=== PATIENT | female | born 1955 | race Caucasian/White ===

== ENCOUNTER 2018-01-24 10:49 | Inpatient (IN) | payer MEDICARE, MEDICAID ==
[2018-01-24 11:22] LABS: ADD MAN DIFF? NO
[2018-01-24] MEDS: ALBUTEROL SULFATE 2.5 MG/3 ML NEBU. NEB (11:23)
[2018-01-24] MEDS: IPRATRPIUM/ALBUTEROL 0.5/2.5MG 3 ML NEBU. NEB (11:24)
[2018-01-24] MEDS: methylPREDNISolone SOD SUCC PF 125 MG/2 ML VIAL. IV ×2 (11:36→21:07)
[2018-01-24] MEDS: FUROSEMIDE 20 MG/2 ML VIAL. IVP (11:36)
[2018-01-24 11:38] LABS: ANION GAP 11 (6-14); BLOOD UREA NITROGEN 10 mg/dL (7-20); BUN/CREATININE RATIO 10 (6-20); CALCIUM 9.2 mg/dL (8.5-10.1); CARBON DIOXIDE 22 mmol/L (21-32); CHLORIDE 101 mmol/L (98-107); GFR 55.8; GLUCOSE 126 mg/dL (70-99); POTASSIUM 3.9 mmol/L (3.5-5.1); SODIUM 134 mmol/L (136-145)
[2018-01-24] MEDS: dilTIAZem IV PUSH 25 MG/5 ML VIAL IVP (11:38)
[2018-01-24 11:39] LABS: BASO # 0.1 x10^3/uL (0.0-0.2); BASO % 1 % (0-3); EOS # 0.1 x10^3/uL (0.0-0.7); EOS % 1 % (0-3); HEMATOCRIT 38.8 % (36.0-47.0); HEMOGLOBIN 13.2 g/dL (12.0-15.5); LYMPH % 22 % (24-48); MEAN CORPUSCULAR HEMOGLOBIN 36 pg (25-35); MEAN CORPUSCULAR HGB CONC 34 g/dL (31-37); MEAN CORPUSCULAR VOLUME 107 fL (79-100); MONO # 0.6 x10^3/uL (0.0-1.1); MONO % 6 % (0-9); NEUT # 6.7 x10^3uL (1.8-7.7); NEUT % 71 % (31-73); PLATELET COUNT 275 x10^3/uL (140-400); RED BLOOD COUNT 3.64 x10^6/uL (3.50-5.40); RED CELL DISTRIBUTION WIDTH 16.6 % (11.5-14.5); WHITE BLOOD COUNT 9.5 x10^3/uL (4.0-11.0)
[2018-01-24 11:42] LABS: INR 1.4 (0.8-1.1); PROTHROMBIN TIME PATIENT 16.3 SEC (11.7-14.0)
[2018-01-24 11:48] LABS: LACTIC ACID 3.2 mmol/L (0.4-2.0)
[2018-01-24 11:51] LABS: TROPONINI < 0.017 ng/mL (0.000-0.055)
[2018-01-24 11:52] LABS: NT-PRO BNP 1714 pg/mL (0-124)
[2018-01-24 11:55] LABS: ALBUMIN 3.5 g/dL (3.4-5.0); ALBUMIN/GLOBULIN RATIO 0.8 (1.0-1.7); ALK PHOS 108 U/L (46-116); ALT (SGPT) 77 U/L (14-59); AST (SGOT) 104 U/L (15-37); MAGNESIUM 2.2 mg/dL (1.8-2.4); TOTAL BILIRUBIN 1.6 mg/dL (0.2-1.0)
[2018-01-24] MEDS ORDERED: ESMOLOL 2500MG/250ML PREMIX 250 ML IV (12:30)
[2018-01-24] MEDS: IV NORMAL SALINE 500ML BAG 500 ML IV (12:46)
[2018-01-24] MEDS: DIGOXIN IV 500 MCG/2 ML AMPUL. IV (12:47)
[2018-01-24] MEDS: dilTIAZem HCL 30 MG TABLET PO ×2 (12:47→21:08)
[2018-01-24 12:57] LABS: BASE EXCESS ABG -4 mmol/L (-3-3); HCO3 ABG 19 mmol/L (21-28); PCO2 ABG 28 mmHg (35-46); PH ABG 7.45 (7.35-7.45); PO2 ABG 77 mmHg (65-108); SAT O2 ABG 95 % (92-99)
[2018-01-24] MEDS ORDERED: CONTRAST GIVEN MC (13:00)
[2018-01-24 13:01] LABS: FIO2 ABG 28
[2018-01-24] MEDS: AZITHRMYCN 500MG IVPB FOR OMNI 250 ML IV (13:18)
[2018-01-24] MEDS: IOHEXOL 300 MG/ML 100ML VIAL. IV (13:18)
[2018-01-24 14:30] LABS: CHOLESTEROL 160 mg/dL (0-200); HDLC 21 mg/dL (40-60); LDLC 115 mg/dL (0-100); NON-HDL CHOLESTEROL 139 mg/dL (0-129); TRIGLYCERIDES 119 mg/dL (0-150); VLDLC 24 mg/dL (0-40)
[2018-01-24 14:31] LABS: CHOLESTEROL/HDL RATIO 7.6
[2018-01-24 14:39] LABS: THYROID STIM HORMONE (TSH) 4.627 uIU/mL (0.358-3.74)
[2018-01-24 15:02] LABS: LACTIC ACID 1.3 mmol/L (0.4-2.0)
[2018-01-24 15:05] LABS: TROPONINI < 0.017 ng/mL (0.000-0.055)
[2018-01-24] MEDS: ASPIRIN ENTERIC COATED 325 MG TABLET.DR. PO (15:07)
[2018-01-24] MEDS ORDERED: ENOXAPARIN 40 MG/0.4 ML SYRINGE. SQ (17:45)
[2018-01-24] MEDS ORDERED: LEVALBUTEROL 1.25 MG/0.5 ML NEBU. NEB (18:00)
[2018-01-24] MEDS: FUROSEMIDE 40 MG/4 ML VIAL. IVP (18:27)
[2018-01-24 19:03] LABS: TROPONINI < 0.017 ng/mL (0.000-0.055)
[2018-01-24] MEDS: BUDESONIDE 0.5 MG/2 ML NEBU. NEB (20:40)
[2018-01-24] MEDS: LEVALBUTEROL 1.25 MG/0.5 ML NEBU. NEB ×2 (20:42→22:00)
[2018-01-24] MEDS: ATORVASTATIN CALCIUM 20 MG TABLET PO (21:06)
[2018-01-24] MEDS: DOXYCYCLINE HYCLATE 100 MG TABLET PO (21:06)
[2018-01-24] MEDS: GABAPENTIN 300 MG CAPSULE. PO (21:06)
[2018-01-24] MEDS: ZOLPIDEM 5 MG TABLET. PO (21:07)
[2018-01-24] MEDS: NYSTATIN TOPICAL POWDER 15GM BOTTLE. TP (21:20)
[2018-01-24] MEDS: clonazePAM 1 MG TABLET PO (21:20)
[2018-01-25 05:39] LABS: ADD MAN DIFF? NO
[2018-01-25 05:59] LABS: BASO % 0 % (0-3); EOS % 0 % (0-3); HEMATOCRIT 38.1 % (36.0-47.0); HEMOGLOBIN 13.1 g/dL (12.0-15.5); LYMPH # 1.5 x10^3/uL (1.0-4.8); LYMPH % 16 % (24-48); MEAN CORPUSCULAR HEMOGLOBIN 37 pg (25-35); MEAN CORPUSCULAR HGB CONC 34 g/dL (31-37); MEAN CORPUSCULAR VOLUME 108 fL (79-100); MONO # 0.2 x10^3/uL (0.0-1.1); MONO % 2 % (0-9); NEUT # 8.1 x10^3uL (1.8-7.7); NEUT % 82 % (31-73); PLATELET COUNT 265 x10^3/uL (140-400); RED BLOOD COUNT 3.54 x10^6/uL (3.50-5.40); RED CELL DISTRIBUTION WIDTH 16.6 % (11.5-14.5); WHITE BLOOD COUNT 9.9 x10^3/uL (4.0-11.0)
[2018-01-25 06:21] LABS: MRSA BY PCR Negative (Negative)
[2018-01-25] MEDS: methylPREDNISolone SOD SUCC PF 125 MG/2 ML VIAL. IV ×3 (06:24→22:22)
[2018-01-25] MEDS: dilTIAZem HCL 30 MG TABLET PO ×3 (06:24→22:23)
[2018-01-25 07:00] LABS: ALBUMIN 3.2 g/dL (3.4-5.0); ALBUMIN/GLOBULIN RATIO 0.8 (1.0-1.7); ALK PHOS 91 U/L (46-116); ALT (SGPT) 72 U/L (14-59); ANION GAP 13 (6-14); AST (SGOT) 67 U/L (15-37); BLOOD UREA NITROGEN 14 mg/dL (7-20); BUN/CREATININE RATIO 16 (6-20); CALCIUM 8.4 mg/dL (8.5-10.1); CARBON DIOXIDE 25 mmol/L (21-32); CHLORIDE 103 mmol/L (98-107); CREATININE 0.9 mg/dL (0.6-1.0); GLUCOSE 152 mg/dL (70-99); POTASSIUM 3.3 mmol/L (3.5-5.1); SODIUM 141 mmol/L (136-145); TOTAL BILIRUBIN 0.8 mg/dL (0.2-1.0); TOTAL PROTEIN 7.4 g/dL (6.4-8.2)
[2018-01-25] MEDS: BUDESONIDE 0.5 MG/2 ML NEBU. NEB ×2 (08:41→19:11)
[2018-01-25] MEDS: LEVALBUTEROL 1.25 MG/0.5 ML NEBU. NEB ×4 (08:41→18:00)
[2018-01-25] MEDS: clonazePAM 1 MG TABLET PO ×2 (09:00→20:33)
[2018-01-25] MEDS: FUROSEMIDE 100 MG/10 ML VIAL. IVP (09:08)
[2018-01-25] MEDS: NYSTATIN TOPICAL POWDER 15GM BOTTLE. TP ×2 (09:08→20:33)
[2018-01-25] MEDS: SERTRALINE 50 MG TABLET. PO (09:09)
[2018-01-25] MEDS: GABAPENTIN 300 MG CAPSULE. PO ×2 (09:09→20:33)
[2018-01-25] MEDS: DOXYCYCLINE HYCLATE 100 MG TABLET PO ×2 (09:09→20:32)
[2018-01-25] MEDS: ASPIRIN ENTERIC COATED 325 MG TABLET.DR. PO (09:09)
[2018-01-25] MEDS ORDERED: PNEUMOCOCCAL VAX SCREEN BY RX. MC (11:00)
[2018-01-25 14:19] LABS: MAGNESIUM 2.1 mg/dL (1.8-2.4)
[2018-01-25] MEDS: DIGOXIN IV 500 MCG/2 ML AMPUL. IV (15:07)
[2018-01-25] MEDS: PNEUMOC CONJ VACC 23-VALENT 0.5 ML VIAL. VAX IM (15:10)
[2018-01-25] MEDS: POTASSIUM CHLORIDE 20 MEQ TABLET.ER. PO (15:12)
[2018-01-25] MEDS: FUROSEMIDE 40 MG/4 ML VIAL. IVP (16:00)
[2018-01-25] MEDS: ZOLPIDEM 5 MG TABLET. PO (20:32)
[2018-01-25] MEDS: APIXABAN 5 MG TABLET. PO (20:32)
[2018-01-25] MEDS: LACTOBACILLUS RHAMNOSUS GG 1 CAPSULE. PO (20:32)
[2018-01-25] MEDS: ATORVASTATIN CALCIUM 20 MG TABLET PO (20:33)
[2018-01-25] MEDS: ONDANSETRON PF 4 MG/2 ML VIAL. IV (22:22)
[2018-01-26] MEDS: methylPREDNISolone SOD SUCC PF 125 MG/2 ML VIAL. IV ×3 (05:37→20:54)
[2018-01-26] MEDS: dilTIAZem HCL 30 MG TABLET PO ×2 (05:37→14:34)
[2018-01-26 06:06] LABS: ANION GAP 7 (6-14); BLOOD UREA NITROGEN 24 mg/dL (7-20); CALCIUM 9.4 mg/dL (8.5-10.1); CARBON DIOXIDE 30 mmol/L (21-32); CHLORIDE 102 mmol/L (98-107); CREATININE 0.9 mg/dL (0.6-1.0); GLUCOSE 153 mg/dL (70-99); SODIUM 139 mmol/L (136-145)
[2018-01-26 06:14] LABS: BASO % 0 % (0-3); EOS % 0 % (0-3); HEMATOCRIT 38.6 % (36.0-47.0); HEMOGLOBIN 12.6 g/dL (12.0-15.5); LYMPH # 1.1 x10^3/uL (1.0-4.8); LYMPH % 5 % (24-48); MEAN CORPUSCULAR HEMOGLOBIN 35 pg (25-35); MEAN CORPUSCULAR HGB CONC 33 g/dL (31-37); MEAN CORPUSCULAR VOLUME 108 fL (79-100); MONO # 0.7 x10^3/uL (0.0-1.1); MONO % 3 % (0-9); NEUT # 20.9 x10^3uL (1.8-7.7); NEUT % 92 % (31-73); PLATELET COUNT 301 x10^3/uL (140-400); RED BLOOD COUNT 3.56 x10^6/uL (3.50-5.40); RED CELL DISTRIBUTION WIDTH 17.3 % (11.5-14.5); WHITE BLOOD COUNT 22.7 x10^3/uL (4.0-11.0)
[2018-01-26 06:25] LABS: ADD MAN DIFF? YES
[2018-01-26] MEDS: BUDESONIDE 0.5 MG/2 ML NEBU. NEB ×2 (08:15→19:59)
[2018-01-26] MEDS: LEVALBUTEROL 1.25 MG/0.5 ML NEBU. NEB ×5 (08:16→22:00)
[2018-01-26] MEDS: LACTOBACILLUS RHAMNOSUS GG 1 CAPSULE. PO ×2 (09:11→20:53)
[2018-01-26] MEDS: FUROSEMIDE 40 MG/4 ML VIAL. IVP ×2 (09:11→14:35)
[2018-01-26] MEDS: GABAPENTIN 300 MG CAPSULE. PO ×2 (09:11→20:54)
[2018-01-26] MEDS: DOXYCYCLINE HYCLATE 100 MG TABLET PO ×2 (09:11→20:53)
[2018-01-26] MEDS: APIXABAN 5 MG TABLET. PO ×2 (09:11→20:53)
[2018-01-26] MEDS: clonazePAM 1 MG TABLET PO ×2 (09:11→20:54)
[2018-01-26] MEDS: NYSTATIN TOPICAL POWDER 15GM BOTTLE. TP ×2 (09:12→20:54)
[2018-01-26] MEDS: SERTRALINE 50 MG TABLET. PO (09:12)
[2018-01-26] MEDS: POTASSIUM CHLORIDE 20 MEQ TABLET.ER. PO (09:12)
[2018-01-26 09:37] LABS: % BANDS 1 % (0-9); % LYMPHS 5 % (24-48); % MONOS 2 % (0-10); % SEGS 92 % (35-66)
[2018-01-26 09:41] LABS: PLT ESTIMATE ADEQUATE (ADEQUATE)
[2018-01-26 09:46] LABS: ANISOCYTOSIS SLIGHT
[2018-01-26] MEDS: DIGOXIN IV 500 MCG/2 ML AMPUL. IV (17:35)
[2018-01-26 20:41] LABS: POC GLUCOSE 202 mg/dL (70-99)
[2018-01-26] MEDS: ATORVASTATIN CALCIUM 20 MG TABLET PO (20:53)
[2018-01-26] MEDS: ZOLPIDEM 5 MG TABLET. PO (20:54)
[2018-01-27] MEDS: methylPREDNISolone SOD SUCC PF 125 MG/2 ML VIAL. IV ×3 (06:26→21:38)
[2018-01-27 08:10] LABS: POC GLUCOSE 105 mg/dL (70-99)
[2018-01-27] MEDS: LEVALBUTEROL 1.25 MG/0.5 ML NEBU. NEB ×4 (08:11→18:00)
[2018-01-27] MEDS: BUDESONIDE 0.5 MG/2 ML NEBU. NEB ×2 (08:11→20:31)
[2018-01-27] MEDS: POTASSIUM CHLORIDE 20 MEQ TABLET.ER. PO (08:24)
[2018-01-27] MEDS: FUROSEMIDE 40 MG/4 ML VIAL. IVP (08:24)
[2018-01-27] MEDS: GABAPENTIN 300 MG CAPSULE. PO ×2 (08:25→20:39)
[2018-01-27] MEDS: LACTOBACILLUS RHAMNOSUS GG 1 CAPSULE. PO ×2 (08:25→20:39)
[2018-01-27] MEDS: SERTRALINE 50 MG TABLET. PO (08:25)
[2018-01-27] MEDS: clonazePAM 1 MG TABLET PO ×2 (08:25→20:39)
[2018-01-27] MEDS: APIXABAN 5 MG TABLET. PO ×2 (08:25→20:39)
[2018-01-27] MEDS: DOXYCYCLINE HYCLATE 100 MG TABLET PO ×2 (08:25→20:39)
[2018-01-27] MEDS: NYSTATIN TOPICAL POWDER 15GM BOTTLE. TP ×2 (08:25→20:39)
[2018-01-27] MEDS: ANTI-COAG MONITOR BY PHARMACY. MC (08:53)
[2018-01-27 11:28] LABS: ADD MAN DIFF? NO
[2018-01-27 11:35] LABS: BASO % 0 % (0-3); EOS % 0 % (0-3); HEMATOCRIT 39.2 % (36.0-47.0); LYMPH # 1.1 x10^3/uL (1.0-4.8); LYMPH % 6 % (24-48); MEAN CORPUSCULAR HEMOGLOBIN 36 pg (25-35); MEAN CORPUSCULAR HGB CONC 33 g/dL (31-37); MEAN CORPUSCULAR VOLUME 108 fL (79-100); MONO # 0.6 x10^3/uL (0.0-1.1); MONO % 3 % (0-9); NEUT # 16.2 x10^3uL (1.8-7.7); NEUT % 91 % (31-73); PLATELET COUNT 286 x10^3/uL (140-400); RED BLOOD COUNT 3.63 x10^6/uL (3.50-5.40); RED CELL DISTRIBUTION WIDTH 17.2 % (11.5-14.5); WHITE BLOOD COUNT 17.9 x10^3/uL (4.0-11.0)
[2018-01-27 11:40] LABS: ANION GAP 7 (6-14); BLOOD UREA NITROGEN 30 mg/dL (7-20); CALCIUM 8.5 mg/dL (8.5-10.1); CARBON DIOXIDE 33 mmol/L (21-32); CHLORIDE 102 mmol/L (98-107); GFR 55.8; GLUCOSE 144 mg/dL (70-99); POTASSIUM 3.7 mmol/L (3.5-5.1); SODIUM 142 mmol/L (136-145)
[2018-01-27] MEDS: POLYETHYLENE GLYCOL 3350 17 GM PACKET. PO (13:39)
[2018-01-27] MEDS: ZOLPIDEM 5 MG TABLET. PO (20:39)
[2018-01-27] MEDS: ATORVASTATIN CALCIUM 20 MG TABLET PO (20:39)
[2018-01-28 04:26] LABS: ADD MAN DIFF? NO
[2018-01-28 04:36] LABS: BASO % 0 % (0-3); EOS % 0 % (0-3); HEMATOCRIT 38.6 % (36.0-47.0); HEMOGLOBIN 12.8 g/dL (12.0-15.5); LYMPH # 1.1 x10^3/uL (1.0-4.8); LYMPH % 8 % (24-48); MEAN CORPUSCULAR HEMOGLOBIN 36 pg (25-35); MEAN CORPUSCULAR HGB CONC 33 g/dL (31-37); MEAN CORPUSCULAR VOLUME 108 fL (79-100); MONO # 0.3 x10^3/uL (0.0-1.1); MONO % 3 % (0-9); NEUT # 11.9 x10^3uL (1.8-7.7); NEUT % 89 % (31-73); PLATELET COUNT 263 x10^3/uL (140-400); RED BLOOD COUNT 3.56 x10^6/uL (3.50-5.40); RED CELL DISTRIBUTION WIDTH 16.9 % (11.5-14.5); WHITE BLOOD COUNT 13.3 x10^3/uL (4.0-11.0)
[2018-01-28 04:51] LABS: ANION GAP 2 (6-14); BLOOD UREA NITROGEN 32 mg/dL (7-20); CALCIUM 8.9 mg/dL (8.5-10.1); CARBON DIOXIDE 34 mmol/L (21-32); CHLORIDE 103 mmol/L (98-107); CREATININE 0.9 mg/dL (0.6-1.0); GLUCOSE 125 mg/dL (70-99); POTASSIUM 3.9 mmol/L (3.5-5.1); SODIUM 139 mmol/L (136-145)
[2018-01-28] MEDS: LEVALBUTEROL 1.25 MG/0.5 ML NEBU. NEB ×6 (06:00→19:33)
[2018-01-28] MEDS: methylPREDNISolone SOD SUCC PF 125 MG/2 ML VIAL. IV (06:17)
[2018-01-28] MEDS: BUDESONIDE 0.5 MG/2 ML NEBU. NEB ×2 (08:10→19:33)
[2018-01-28] MEDS: ANTI-COAG MONITOR BY PHARMACY. MC (08:12)
[2018-01-28] MEDS: GABAPENTIN 300 MG CAPSULE. PO ×2 (08:14→20:34)
[2018-01-28] MEDS: DOXYCYCLINE HYCLATE 100 MG TABLET PO ×2 (08:14→20:34)
[2018-01-28] MEDS: SERTRALINE 50 MG TABLET. PO (08:14)
[2018-01-28] MEDS: APIXABAN 5 MG TABLET. PO ×2 (08:15→20:35)
[2018-01-28] MEDS: LACTOBACILLUS RHAMNOSUS GG 1 CAPSULE. PO ×2 (08:15→20:34)
[2018-01-28] MEDS: POTASSIUM CHLORIDE 20 MEQ TABLET.ER. PO (08:15)
[2018-01-28] MEDS: clonazePAM 1 MG TABLET PO ×2 (08:15→20:34)
[2018-01-28] MEDS: NYSTATIN TOPICAL POWDER 15GM BOTTLE. TP ×2 (08:15→20:35)
[2018-01-28] MEDS: FUROSEMIDE 40 MG/4 ML VIAL. IVP (08:20)
[2018-01-28] MEDS ORDERED: methylPREDNISolone SOD SUCC PF 40 MG/ML VIAL. IV (14:00)
[2018-01-28] MEDS: ONDANSETRON PF 4 MG/2 ML VIAL. IV (17:50)
[2018-01-28] MEDS: PANTOPRAZOLE 40 MG TABLET.DR. PO (20:34)
[2018-01-28] MEDS: ZOLPIDEM 5 MG TABLET. PO (20:34)
[2018-01-28] MEDS: ATORVASTATIN CALCIUM 20 MG TABLET PO (20:34)
[2018-01-29 05:59] LABS: ADD MAN DIFF? NO
[2018-01-29 06:19] LABS: BASO % 0 % (0-3); EOS % 0 % (0-3); HEMATOCRIT 40.8 % (36.0-47.0); HEMOGLOBIN 13.3 g/dL (12.0-15.5); LYMPH # 1.1 x10^3/uL (1.0-4.8); LYMPH % 9 % (24-48); MEAN CORPUSCULAR HEMOGLOBIN 35 pg (25-35); MEAN CORPUSCULAR HGB CONC 33 g/dL (31-37); MEAN CORPUSCULAR VOLUME 108 fL (79-100); MONO # 0.6 x10^3/uL (0.0-1.1); MONO % 5 % (0-9); NEUT # 9.7 x10^3uL (1.8-7.7); NEUT % 85 % (31-73); PLATELET COUNT 254 x10^3/uL (140-400); RED CELL DISTRIBUTION WIDTH 17.1 % (11.5-14.5); WHITE BLOOD COUNT 11.4 x10^3/uL (4.0-11.0)
[2018-01-29 06:29] LABS: ANION GAP 3 (6-14); BLOOD UREA NITROGEN 38 mg/dL (7-20); CALCIUM 9.1 mg/dL (8.5-10.1); CARBON DIOXIDE 34 mmol/L (21-32); CHLORIDE 104 mmol/L (98-107); CREATININE 0.9 mg/dL (0.6-1.0); GLUCOSE 112 mg/dL (70-99); SODIUM 141 mmol/L (136-145)
[2018-01-29] MEDS: LEVALBUTEROL 1.25 MG/0.5 ML NEBU. NEB ×3 (07:35→12:03)
[2018-01-29] MEDS: BUDESONIDE 0.5 MG/2 ML NEBU. NEB (07:35)
[2018-01-29] MEDS: APIXABAN 5 MG TABLET. PO (08:15)
[2018-01-29] MEDS: SERTRALINE 50 MG TABLET. PO (08:15)
[2018-01-29] MEDS: DOXYCYCLINE HYCLATE 100 MG TABLET PO (08:15)
[2018-01-29] MEDS: GABAPENTIN 300 MG CAPSULE. PO (08:16)
[2018-01-29] MEDS: POTASSIUM CHLORIDE 20 MEQ TABLET.ER. PO (08:16)
[2018-01-29] MEDS: clonazePAM 1 MG TABLET PO (08:16)
[2018-01-29] MEDS: FUROSEMIDE 40 MG TABLET. PO (08:16)
[2018-01-29] MEDS: LACTOBACILLUS RHAMNOSUS GG 1 CAPSULE. PO (08:16)
[2018-01-29] MEDS: predniSONE 20 MG TABLET PO (08:16)
[2018-01-29] MEDS: NYSTATIN TOPICAL POWDER 15GM BOTTLE. TP (08:19)
== END 2018-01-29 15:16 | disposition home or self-care (01) | DRG 291 ==
LOC: 2 NORTH 01-26 04:00 → ER 10:49 → ED HOLD 12:27 → 1 WEST ICU 14:38
DX: I11.0 Hypertensive heart disease with heart failure (principal); J96.01 Acute respiratory failure with hypoxia; D68.9 Coagulation defect, unspecified; I27.20 Pulmonary hypertension, unspecified; E66.01 Morbid (severe) obesity due to excess calories; J44.1 Chronic obstructive pulmonary disease with (acute) exacerbation; Z68.43 Body mass index [BMI] 50.0-59.9, adult; I50.31 Acute diastolic (congestive) heart failure; I48.91 Unspecified atrial fibrillation; W19.XXXA Unspecified fall, initial encounter; D72.829 Elevated white blood cell count, unspecified; D75.89 Other specified diseases of blood and blood-forming organs; E03.9 Hypothyroidism, unspecified; F12.10 Cannabis abuse, uncomplicated; F17.210 Nicotine dependence, cigarettes, uncomplicated; F41.9 Anxiety disorder, unspecified; F32.9 Major depressive disorder, single episode, unspecified; G47.33 Obstructive sleep apnea (adult) (pediatric); I35.1 Nonrheumatic aortic (valve) insufficiency; S00.10XA Contusion of unspecified eyelid and periocular area, initial encounter; T38.0X5A Adverse effect of glucocorticoids and synthetic analogues, initial encounter; Z82.49 Family history of ischemic heart disease and other diseases of the circulatory system; Z98.51 Tubal ligation status; Y93.89 Activity, other specified; Y92.89 Other specified places as the place of occurrence of the external cause; Y99.8 Other external cause status
CPT/HCPCS: 36415; 36600; 71045; 71275; 80048; 80053; 80061; 82805; 82962; 83605; 83735; 83880; 84443; 84484; 85007; 85025; 85610; 87040; 87641; 90732; 93005; 93306; 94640; 94760; 96361; 96365; 96366; 96375; 97116-GP; 97162-GP; 97166-GO; 97530-GO; 97530-GP; 97535-GO; 99291; 99291-25; J0456; J0690; J1160; J1650; J1940; J2405; J2930; J3490; J7040; J7512; J7613; J7620; J7626; Q9967

== ENCOUNTER 2018-03-02 14:40 | Inpatient (IN) | payer MEDICARE ==
[2018-03-02 15:01] LABS: ADD MAN DIFF? NO
[2018-03-02 15:06] LABS: BASO # 0.1 x10^3/uL (0.0-0.2); BASO % 1 % (0-3); EOS % 0 % (0-3); HEMATOCRIT 40.6 % (36.0-47.0); HEMOGLOBIN 13.6 g/dL (12.0-15.5); LYMPH # 4.6 x10^3/uL (1.0-4.8); LYMPH % 41 % (24-48); MEAN CORPUSCULAR HEMOGLOBIN 35 pg (25-35); MEAN CORPUSCULAR HGB CONC 34 g/dL (31-37); MEAN CORPUSCULAR VOLUME 104 fL (79-100); MONO # 0.8 x10^3/uL (0.0-1.1); MONO % 7 % (0-9); NEUT # 5.8 x10^3uL (1.8-7.7); NEUT % 51 % (31-73); PLATELET COUNT 233 x10^3/uL (140-400); RED BLOOD COUNT 3.91 x10^6/uL (3.50-5.40); RED CELL DISTRIBUTION WIDTH 16.3 % (11.5-14.5); WHITE BLOOD COUNT 11.4 x10^3/uL (4.0-11.0)
[2018-03-02] MEDS: IV NORMAL SALINE 1000ML BAG 1,000 ML IV (15:07)
[2018-03-02] MEDS: METOPROLOL TARTRATE 5 MG/5 ML VIAL. IVP (15:07)
[2018-03-02 15:25] LABS: ANION GAP 12 (6-14); BLOOD UREA NITROGEN 9 mg/dL (7-20); BUN/CREATININE RATIO 13 (6-20); CALCIUM 9.4 mg/dL (8.5-10.1); CARBON DIOXIDE 24 mmol/L (21-32); CHLORIDE 102 mmol/L (98-107); CREATININE 0.7 mg/dL (0.6-1.0); GFR 84.2; GLUCOSE 96 mg/dL (70-99); POTASSIUM 4.2 mmol/L (3.5-5.1); SODIUM 138 mmol/L (136-145)
[2018-03-02 15:29] LABS: INR 1.4 (0.8-1.1); PROTHROMBIN TIME PATIENT 16.1 SEC (11.7-14.0)
[2018-03-02 15:32] LABS: ALBUMIN 3.4 g/dL (3.4-5.0); ALK PHOS 91 U/L (46-116); ALT (SGPT) 40 U/L (14-59); AST (SGOT) 35 U/L (15-37); MAGNESIUM 2.2 mg/dL (1.8-2.4); TOTAL BILIRUBIN 1.1 mg/dL (0.2-1.0); TOTAL PROTEIN 6.8 g/dL (6.4-8.2)
[2018-03-02 15:35] LABS: TROPONINI < 0.017 ng/mL (0.000-0.055)
[2018-03-02 15:38] LABS: THYROID STIM HORMONE (TSH) 3.801 uIU/mL (0.358-3.74)
[2018-03-02 15:38] LABS: FREE T4 0.86 ng/dL (0.76-1.46)
[2018-03-02 15:40] LABS: NT-PRO BNP 2044 pg/mL (0-124)
[2018-03-02 15:40] LABS: CKMB MASS < 0.5 ng/mL (0.0-3.6); CREATINE KINASE 34 U/L (26-192)
[2018-03-02] MEDS: ESMOLOL 2500MG/250ML PREMIX 250 ML IV ×2 (15:51→19:05)
[2018-03-02] MEDS: DIGOXIN IV 500 MCG/2 ML AMPUL. IV (17:41)
[2018-03-02] MEDS: GABAPENTIN 300 MG CAPSULE. PO (20:02)
[2018-03-02] MEDS: clonazePAM 1 MG TABLET PO (20:02)
[2018-03-02] MEDS: APIXABAN 5 MG TABLET. PO (20:02)
[2018-03-02] MEDS: NYSTATIN TOPICAL POWDER 15GM BOTTLE. TP (20:02)
[2018-03-02] MEDS: ONDANSETRON PF 4 MG/2 ML VIAL. IV (21:39)
[2018-03-02] MEDS: ZOLPIDEM 5 MG TABLET. PO (21:42)
[2018-03-03] MEDS: ESMOLOL 2500MG/250ML PREMIX 250 ML IV ×2 (01:07→09:34)
[2018-03-03] MEDS: SERTRALINE 50 MG TABLET. PO (09:51)
[2018-03-03] MEDS: clonazePAM 1 MG TABLET PO ×2 (09:52→20:30)
[2018-03-03] MEDS: GABAPENTIN 300 MG CAPSULE. PO ×2 (09:52→20:30)
[2018-03-03] MEDS: APIXABAN 5 MG TABLET. PO ×2 (09:52→20:30)
[2018-03-03] MEDS: DIGOXIN IV 500 MCG/2 ML AMPUL. IV ×2 (12:15→12:59)
[2018-03-03] MEDS: ANTI-COAG MONITOR BY PHARMACY. MC (13:35)
[2018-03-03] MEDS ORDERED: CALCIUM CARBONATE 500 MG TAB.CHEW PO (13:45)
[2018-03-03] MEDS: NYSTATIN TOPICAL POWDER 15GM BOTTLE. TP ×2 (13:58→20:32)
[2018-03-03] MEDS: METOPROLOL TART IMMED RELEASE 25 MG TABLET. PO ×2 (13:59→20:31)
[2018-03-03] MEDS: SIMETHICONE 80 MG TAB.CHEW PO (13:59)
[2018-03-03] MEDS: MAGNESIUM HYDROXIDE 2,400 MG/30 ML ORAL.SUSP. PO (18:15)
[2018-03-03 19:17] LABS: MRSA BY PCR Negative (Negative)
[2018-03-03] MEDS: ZOLPIDEM 5 MG TABLET. PO (20:30)
[2018-03-03] MEDS: ATORVASTATIN CALCIUM 10 MG TABLET. PO (20:30)
[2018-03-04] MEDS: METOPROLOL TART IMMED RELEASE 25 MG TABLET. PO ×2 (09:00→20:41)
[2018-03-04] MEDS: SERTRALINE 50 MG TABLET. PO (09:31)
[2018-03-04] MEDS: clonazePAM 1 MG TABLET PO ×2 (09:32→20:41)
[2018-03-04] MEDS: GABAPENTIN 300 MG CAPSULE. PO ×2 (09:32→20:40)
[2018-03-04] MEDS: APIXABAN 5 MG TABLET. PO ×2 (09:32→20:41)
[2018-03-04] MEDS: NYSTATIN TOPICAL POWDER 15GM BOTTLE. TP ×2 (09:33→20:41)
[2018-03-04] MEDS: ATORVASTATIN CALCIUM 10 MG TABLET. PO (20:40)
[2018-03-04] MEDS: ZOLPIDEM 5 MG TABLET. PO (20:40)
[2018-03-04] MEDS: SIMETHICONE 80 MG TAB.CHEW PO (20:40)
[2018-03-05] MEDS: clonazePAM 1 MG TABLET PO (08:39)
[2018-03-05] MEDS: SERTRALINE 50 MG TABLET. PO (08:39)
[2018-03-05] MEDS: APIXABAN 5 MG TABLET. PO (08:39)
[2018-03-05] MEDS: GABAPENTIN 300 MG CAPSULE. PO (08:39)
[2018-03-05] MEDS: METOPROLOL TART IMMED RELEASE 25 MG TABLET. PO (08:40)
[2018-03-05] MEDS: NYSTATIN TOPICAL POWDER 15GM BOTTLE. TP (08:41)
[2018-03-06] MEDS ORDERED: IV RINGERS,LACTATED 1000ML 1,000 ML IV (07:00)
[2018-03-06] MEDS ORDERED: fentaNYL PF VIAL 100 MCG/2 ML VIAL IV ×2 (07:00)
[2018-03-06] MEDS ORDERED: MORPHINE SULFATE 4 MG/ML DISP.SYRIN. IV (07:00)
[2018-03-06] MEDS ORDERED: LIDOCAINE 1% PF 2 ML VIAL. ID (07:00)
[2018-03-06] MEDS ORDERED: PROCHLORPERAZINE 10 MG/2 ML VIAL. IV (07:00)
[2018-03-06] MEDS ORDERED: ONDANSETRON PF 4 MG/2 ML VIAL. IV (07:00)
== END 2018-03-05 15:00 | disposition home or self-care (01) | DRG 308 ==
LOC: 2 NORTH 03-04 15:00 → ER 14:40 → 1 WEST ICU 15:45
DX: I48.91 Unspecified atrial fibrillation (principal); I50.33 Acute on chronic diastolic (congestive) heart failure; E66.01 Morbid (severe) obesity due to excess calories; J44.1 Chronic obstructive pulmonary disease with (acute) exacerbation; I27.20 Pulmonary hypertension, unspecified; Z68.43 Body mass index [BMI] 50.0-59.9, adult; I11.0 Hypertensive heart disease with heart failure; F41.9 Anxiety disorder, unspecified; F32.9 Major depressive disorder, single episode, unspecified; F17.210 Nicotine dependence, cigarettes, uncomplicated; M19.90 Unspecified osteoarthritis, unspecified site; M79.7 Fibromyalgia; D75.89 Other specified diseases of blood and blood-forming organs; F12.90 Cannabis use, unspecified, uncomplicated; E03.9 Hypothyroidism, unspecified; E78.5 Hyperlipidemia, unspecified; G47.33 Obstructive sleep apnea (adult) (pediatric); Z82.49 Family history of ischemic heart disease and other diseases of the circulatory system; Z98.51 Tubal ligation status
CPT/HCPCS: 36415; 71045; 80053; 82553; 83735; 83880; 84439; 84443; 84484; 85025; 85610; 87641; 93005; 96361; 96365; 96375; 99291; 99291-25; 99406; J1160; J2405; J3490; J7030

== ENCOUNTER 2020-05-08 09:21 | Inpatient (IN) | payer MEDICAID, MEDICARE ==
[2020-05-08] VITALS (8 sets, daily range): BP systolic 109–161; BP diastolic 56–104
[~2020-05-08] VITALS: Ht 142.2 cm; Wt 89.2 kg
[~2020-05-08 09:21] MED LIST: APIX5TAB PO; ATOR10TA60 PO; CLON2TAB9 PO; CLONAZEPAM1 MG PO; DILT240C33 PO; GABA300C18 PO; METH4TAB2 PO; METO25TA4 PO; SERT100T PO; ZOLP5TAB PO
[2020-05-08] MEDS ORDERED: IV NORMAL SALINE 1000ML BAG 1,000 ML IV ONE (10:00)
[2020-05-08] MEDS ORDERED: ONDANSETRON ODT 4 MG TAB.RAPDIS. ONE (10:11)
[2020-05-08] MEDS ORDERED: ONDANSETRON ODT 4 MG TAB.RAPDIS. PO ONE (10:45)
[2020-05-08 11:34] LABS: CALCIUM 9.1 mg/dL (8.5-10.1); CREATININE 0.6 mg/dL (0.6-1.0)
[2020-05-08 11:39] LABS: BASO % 0 % (0-3); EOS # 0.1 x10^3/uL (0.0-0.7); EOS % 1 % (0-3); HEMATOCRIT 45.4 % (36.0-47.0); HEMOGLOBIN 15.1 g/dL (12.0-15.5); LYMPH # 2.2 x10^3/uL (1.0-4.8); LYMPH % 28 % (24-48); MEAN CORPUSCULAR HEMOGLOBIN 34 pg (25-35); MEAN CORPUSCULAR HGB CONC 33 g/dL (31-37); MEAN CORPUSCULAR VOLUME 102 fL (79-100); MONO # 0.8 x10^3/uL (0.0-1.1); MONO % 10 % (0-9); NEUT # 4.8 x10^3/uL (1.8-7.7); NEUT % 62 % (31-73); PLATELET COUNT 227 x10^3/uL (140-400); RED BLOOD COUNT 4.44 x10^6/uL (3.50-5.40); RED CELL DISTRIBUTION WIDTH 14.9 % (11.5-14.5); WHITE BLOOD COUNT 7.8 x10^3/uL (4.0-11.0)
[2020-05-08 11:40] LABS: ALBUMIN 2.9 g/dL (3.4-5.0); ALBUMIN/GLOBULIN RATIO 0.7 (1.0-1.7); TOTAL BILIRUBIN 0.7 mg/dL (0.2-1.0)
[2020-05-08] MEDS ORDERED: IOHEXOL 300 MG/ML 100ML VIAL. IV ONE (11:45)
[2020-05-08] MEDS ORDERED: CONTRAST GIVEN. MC PRN (11:45)
[2020-05-08] MEDS ORDERED: IOHEXOL 240 MG/ML 50ML VIAL. PO ONE (11:45)
[2020-05-08 12:18] LABS: BILIRUBIN,URINE NEGATIVE (NEG); CLARITY,URINE CLEAR; COLOR,URINE YELLOW; NITRITE,URINE POSITIVE (NEG); PH,URINE 7.5 (<5.0-8.0); PROTEIN,URINE NEGATIVE (NEG-TRACE)
[2020-05-08] MEDS ORDERED: dilTIAZem IV PUSH 25 MG/5 ML VIAL ONE (12:21)
--- NOTE | 2020-05-08 12:24 | PHYS DOC ---
Past Medical History Past Medical History: A-Fib, COPD, High Cholesterol, Hypertension Additional Past Medical Histor: CHRONIC LEG PAIN Past Surgical History: Tubal ligation Smoking Status: Current Every Day Smoker Alcohol Use: Occasionally Drug Use: Marijuana General Adult EDM: Chief Complaint: NAUSEA/VOMITING/DIARRHA HPI: HPI: Patient is a 64 year old female who presents with abdominal pain and vomiting. Patient states that for the last 3 weeks she has not had an appetite and has barely been eating. She states when she does eat she often throws up. She has intermittent diarrhea as well. She denies any fevers with this. She states she has been taking her medications as prescribed other than her psychiatric medicines. She states she has had a great increase in stress in the last 3 weeks as she was evicted from her home. She states pain is achy and intermit tent. Review of Systems: Review of Systems: General: Denies fever, chills, sweats, fatigue Eyes: Denies drainage, blurred vision, eye redness HENT: Denies rhinorrhea, sore throat, earache Respiratory: Denies cough, shortness of breath, wheezing Cardiac: Denies edema, palpitations, chest pain GI: Reports abdominal pain, Nausea, vomiting MSK: Denies back pain, neck pain Skin: Denies rash, jaundice Neuro: Denies headache, dizziness Psychiatric: Denies SI/HI Heart Score: Risk Factors: Risk Factors: DM, Current or recent (<one month) smoker, HTN, HLP, family history of CAD, obesity. Risk Scores: Score 0 - 3: 2.5% MACE over next 6 weeks - Discharge Home Score 4 - 6: 20.3% MACE over next 6 weeks - Admit for Clinical Observation Score 7 - 10: 72.7% MACE over next 6 weeks - Early Invasive Strategies Current Medications: Current Medications Medications (Trade) Dose Ordered Sig/Steffen Start Time Stop Time Status Last Admin Dose Admin Diltiazem HCl (Cardizem 24hr Cd) 120 mg 1X ONCE 05/08/20 12:00 05/08/20 12:01 DC 05/08/20 11:57 120 MG Diltiazem HCl (Cardizem Iv Push) 20 mg 1X ONCE 05/08/20 12:30 05/08/20 12:31 UNV Info (CONTRAST GIVEN -- Rx MONITORING) 1 each PRN DAILY PRN 05/08/20 11:45 05/10/20 11:44 Iohexol (Omnipaque 240 Mg/ml) 30 ml 1X ONCE 05/08/20 11:45 05/08/20 11:46 DC 05/08/20 11:45 30 ML Iohexol (Omnipaque 300 Mg/ml) 75 ml 1X ONCE 05/08/20 11:45 05/08/20 11:46 DC 05/08/20 11:45 75 ML Ondansetron HCl (Zofran Odt) 4 mg 1X ONCE 05/08/20 10:45 05/08/20 10:46 DC 05/08/20 10:17 4 MG Sodium Chloride 1,000 ml @ 1,000 mls/hr 1X ONCE 05/08/20 10:00 05/08/20 10:59 DC 05/08/20 10:17 1,000 MLS/HR Allergies: Allergies: Allergies Coded Allergies Type Severity Reaction Last Updated Verified No Known Drug Allergies 01/24/18 No Physical Exam: PE: General: Awake, alert, NAD. Well Nourished, well hydrated. Cooperative HEENT: Atraumatic, EOMI, PERRL, airway patent, moist oral mucosa Neck: Supple, trachea midline Respiratory: CTA bilaterally, normal effort, no wheezing/crackles CV: Irregularly irregular tachycardia, no murmur, cap refill <2 GI: Soft, nondistended, nontender, no masses MSK: No obvious deformities Skin: Warm, dry, intact Neuro: A&O x3, speech NL, sensory and motor grossly intact, no focal deficits Psych: Normal affect, normal mood, not suicidal or homicidal Current Patient Data: Labs: Laboratory Tests Test 05/08/20 11:20 White Blood Count 7.8 x10^3/uL (4.0-11.0) Red Blood Count 4.44 x10^6/uL (3.50-5.40) Hemoglobin 15.1 g/dL (12.0-15.5) Hematocrit 45.4 % (36.0-47.0) Mean Corpuscular Volume 102 fL (79-100) H Mean Corpuscular Hemoglobin 34 pg (25-35) Mean Corpuscular Hemoglobin Concent 33 g/dL (31-37) Red Cell Distribution Width 14.9 % (11.5-14.5) H Platelet Count 227 x10^3/uL (140-400) Neutrophils (%) (Auto) 62 % (31-73) Lymphocytes (%) (Auto) 28 % (24-48) Monocytes (%) (Auto) 10 % (0-9) H Eosinophils (%) (Auto) 1 % (0-3) Basophils (%) (Auto) 0 % (0-3) Neutrophils # (Auto) 4.8 x10^3/uL (1.8-7.7) Lymphocytes # (Auto) 2.2 x10^3/uL (1.0-4.8) Monocytes # (Auto) 0.8 x10^3/uL (0.0-1.1) Eosinophils # (Auto) 0.1 x10^3/uL (0.0-0.7) Basophils # (Auto) 0.0 x10^3/uL (0.0-0.2) Sodium Level 140 mmol/L (136-145) Potassium Level 4.0 mmol/L (3.5-5.1) Chloride Level 105 mmol/L (98-107) Carbon Dioxide Level 28 mmol/L (21-32) Anion Gap 7 (6-14) Blood Urea Nitrogen 5 mg/dL (7-20) L Creatinine 0.6 mg/dL (0.6-1.0) Estimated GFR (Cockcroft-Gault) 100.0 BUN/Creatinine Ratio 8 (6-20) Glucose Level 112 mg/dL (70-99) H Calcium Level 9.1 mg/dL (8.5-10.1) Total Bilirubin 0.7 mg/dL (0.2-1.0) Aspartate Amino Transferase (AST) 53 U/L (15-37) H Alanine Aminotransferase (ALT) 36 U/L (14-59) Alkaline Phosphatase 154 U/L (46-116) H Total Protein 7.0 g/dL (6.4-8.2) Albumin 2.9 g/dL (3.4-5.0) L Albumin/Globulin Ratio 0.7 (1.0-1.7) L Lipase 74 U/L (73-393) Laboratory Tests 05/08/20 11:20 Laboratory Tests 05/08/20 11:20 Vital Signs: Vital Signs Date Time Temp Pulse Resp B/P (MAP) Pulse Ox O2 Delivery O2 Flow Rate FiO2 05/08/20 11:57 154 133/98 05/08/20 11:14 97 Room Air 05/08/20 09:33 98.1 19 98.1 EKG: EKG: [] Radiology/Procedures: Radiology/Procedures: [] Course & Med Decision Making: Course & Med Decision Making Pertinent Labs and Imaging studies reviewed. (See chart for details) Patient is 64-year-old female who presents to the emergency room complaining of abdominal pain and nausea. Patient does not have any tenderness on exam but states that her pain comes and goes. She is in atrial fibrillation with RVR. She does have a history of A. fib but she states she has been taking her medications. She denies any chest pain, shortness of breath, palpitations. Given her age, vital signs, history and abdominal work-up will be ordered including CBC, CMP, lipase, UA, CT abdomen pelvis. EKG shows atrial fibrillation with RVR. Patient was given IV diltiazem after her home dose of oral diltiazem did not help. Patient was started on a diltiazem drip. CT shows cystitis. Patient will be treated with antibiotics and will be admitted for atrial fibrillation with RVR. Work up was rviewed and was remarkable for UTI and atrial fibrillation. At this time, patient would benefit from further work up and management. Patient is not stable for discharge at this time. Results, vitals, interventions, and plan was discussed with the patient. Patient was given opportunity to ask any questions and are in agreement with plan for admis shanda. Patient was discussed with admitting physician and bridge admission orders were placed. Further care will be managed by inpatient team. Danaeon Disclaimer: [place] Disclaimer: This electronic medical record was generated, in whole or in part, using a voice recognition dictation system. Critical Care Time Critical Care: Authorized and Performed by: Alta Orellana MD Total critical care time: approximately 35 minutes Due to a high probability of clinically significant, life threatening deterioration, the patient required my highest level of preparedness to intervene emergently and I personally spent this critical care time directly and personally managing the patient. This critical care time included obtaining a history; examining the patient; pulse oximetry; ventilator management if necessary; ordering and review of studies; arranging urgent treatment with development of a management plan; evaluation of patient's response to treatment; frequent reassessment; discussion with patient/family; and, discussions with other providers. This critical care time was performed to assess and manage the high probability of imminent, life-threatening deterioration that could result in multi-organ failure. It was exclusive of separately billable procedures and treating other patients and teaching time. Please see MDM section and the rest of the note for further information on patient assessment and treatment. Departure Departure Impression: Primary Impression: Atrial fibrillation with RVR Disposition: ADMITTED INPATIENT Condition: STABLE Referrals: NO PCP (PCP) Justicifation of Admission Dx: Justifications for Admission: Justification of Admission Dx: Yes ALTA ORELLANA MD May 08, 2020 12:24
[2020-05-08 12:32] LABS: BACTERIA,URINE MANY /HPF (0-FEW); HYALINE CASTS, URINE FEW /HPF; SQUAMOUS EPITHELIAL CELL,UR MOD /LPF
--- NOTE | 2020-05-08 12:34 | RAD ---
CT ABD PELV W/ORAL IV CONTRAST Indication: Abdominal pain, nausea and vomiting, diarrhea Technique: Postcontrast CT imaging was performed of the abdomen pelvis, multiplanar reconstruction images submitted. Oral contrast was also given. One or more of the following individualized dose reduction techniques were utilized for this examination: 1. Automated exposure control 2. Adjustment of the mA and/or kV according to patient size 3. Use of iterative reconstruction technique. Comparison: September 21, 2004 CT exam Findings: There is motion degradation. There is calcified granuloma left lower lobe at the base. There is a new hypodense lesion of left lobe of the liver about 1.8 cm, density measurements greater than a simple cyst 23 Hounsfield units. There is again focus of calcification of the anterior liver more inferiorly not associated with significant focal mass. Gallbladder is present without obvious intraluminal abnormality by CT although appears somewhat distended. There is no new adrenal nodularity. Both kidneys enhance, no hydronephrosis. There is a lobulated contour of the kidneys bilaterally. No significant focal abnormality is identified of the spleen or pancreas. The bowel is not significantly dilated. No free fluid or free air is identified. There is wall thickening greater anteriorly of the urinary bladder although fairly similar compared with previous exam. There is minimal fat in the left inguinal canal, no bowel. There is some scattered plaque of the abdominal aorta and iliac arteries. There is multilevel thoracolumbar degenerative disc disease also multilevel lumbar facet degenerative change. There is now superior L4 compression deformity. IMPRESSION: 1. Gallbladder appears slightly distended without obvious intraluminal abnormality by CT, correlation with site of pain advised. Findings could be further evaluated with ultrasound as per clinical indication. 2. There is now hypodense lesion of the left lobe of the liver, density measurements greater than a simple cyst, nonemergent ultrasound evaluation recommended for better characterization. 3. There is nonspecific wall thickening of the urinary bladder greater anteriorly. Cystitis is considered unlikely given presence on previous exam, although difficult to exclude an underlying mass by this exam. 4. There is now superior L4 compression deformity although otherwise of uncertain chronicity, correlation with any focal point tenderness advised. Electronically signed by: Rick Zhu MD (05/08/2020 12:31 PM) [id number]
[2020-05-08] MEDS ORDERED: dilTIAZem IV PUSH 25 MG/5 ML VIAL IVP ONE (12:45)
[2020-05-08] MEDS ORDERED: DILTIAZEM HCL 125 MG in IV NORMAL SALINE 100ML 100 ML IV PRN (13:15)
--- NOTE | 2020-05-08 13:24 | EKG ---
[facility] [address] [place] [address] Test Date: 2020-05-08 Test Time: 09:54:06 Pat Name: OLI TAVERA Department: Room: Gender: F Hunter Skin Diver: : 1955 Requested By: ALTA VERGARA Order Number: [id number] Reading MD: Measurements Intervals [place] Plane Rate: 145 P: ME: QRS: 81 QRSD: 84 T: 7 QT: 320 QTc: 500 Interpretive Statements IRREGULAR RHYTHM, NO P-WAVE FOUND OTHERWISE NORMAL ECG RI6.02 No previous ECG available for comparison
--- NOTE | 2020-05-08 13:27 | PDOC1 ---
History and Physical Date of Admission Date of Admission DATE: 05/08/20 TIME: 13:26 Identification/Chief Complaint Chief Complaint SEEN IN ER WITH A FIB RVR States her meds are expensive, unable to afford some 64 year old female who presents with abdominal pain and vomiting. Patient states that for the last 3 weeks she has not had an appetite and has barely been eating. She states when she does eat she often throws up. She has intermittent diarrhea as well. She denies any fevers with this. She states she has been taking her medications as prescribed other than her psychiatric medicines. She states she has had a great increase in stress in the last 3 weeks as she was evicted from her home. Past Medical History Past Medical History Past Medical History Past Medical History: A-Fib, COPD, High Cholesterol, Hypertension Additional Past Medical Histor: CHRONIC LEG PAIN Past Surgical History: Tubal ligation Smoking Status: Current Every Day Smoker Alcohol Use: Occasionally Drug Use: Marijuana FHX OBESITY Cardiovascular: AFIB, CHF, Hyperlipidemia Pulmonary: COPD Psych: Anxiety, Depression Musculoskeletal: Osteoarthritis Rheumatologic: Fibromyalgia Infectious disease: No pertinent hx Past Surgical History Past Surgical History: Tubal Ligation Family History Family History: Hypertension Family History: Parent Social History Smoke: <1 pack per day ALCOHOL: none Drugs: None, Marijuana Current Problem List Problem List Problems Medical Problems: (1) Atrial fibrillation with RVR Status: Acute Current Medications Current Medications Current Medications Sodium Chloride 1,000 ml @ 1,000 mls/hr 1X ONCE IV Last administered on 05/08/20at 10:17; Start 05/08/20 at 10:00; Stop 05/08/20 at 10:59; Status DC Ondansetron HCl (Zofran Odt) 4 mg STK-MED ONCE .ROUTE ; Start 05/08/20 at 10:11; Stop 05/08/20 at 10:12; Status DC Ondansetron HCl (Zofran Odt) 4 mg 1X ONCE PO Last administered on 05/08/20at 10:17; Start 05/08/20 at 10:45; Stop 05/08/20 at 10:46; Status DC Diltiazem HCl (Cardizem 24hr Cd) 120 mg 1X ONCE PO Last administered on 05/08/20at 11:57; Start 05/08/20 at 12:00; Stop 05/08/20 at 12:01; Status DC Iohexol (Omnipaque 240 Mg/ml) 30 ml 1X ONCE PO Last administered on 05/08/20at 11:45; Start 05/08/20 at 11:45; Stop 05/08/20 at 11:46; Status DC Iohexol (Omnipaque 300 Mg/ml) 75 ml 1X ONCE IV Last administered on 05/08/20at 11:45; Start 05/08/20 at 11:45; Stop 05/08/20 at 11:46; Status DC Info (CONTRAST GIVEN -- Rx MONITORING) 1 each PRN DAILY PRN MC SEE COMMENTS; Start 05/08/20 at 11:45; Stop 05/10/20 at 11:44 Diltiazem HCl (Cardizem Iv Push) 20 mg 1X ONCE IVP Last administered on 05/08/20at 12:36; Start 05/08/20 at 12:45; Stop 05/08/20 at 12:46; Status DC Diltiazem HCl (Cardizem Iv Push) 25 mg STK-MED ONCE .ROUTE ; Start 05/08/20 at 12:21; Stop 05/08/20 at 12:21; Status DC Diltiazem HCl 125 mg/Sodium Chloride 125 ml @ 5 mls/hr CONT PRN IV SEE I/O RECORD; Start 05/08/20 at 13:15 Active Scripts Active Diltiazem 24Hr Cd (Diltiazem HCl) 240 Mg Cap.er.24h 240 Mg PO DAILY 30 Days Metoprolol Tartrate 25 Mg Tablet 25 Mg PO BID 30 Days Atorvastatin Calcium 10 Mg Tablet 10 Mg PO QHS 30 Days Eliquis (Apixaban) 5 Mg Tablet 5 Mg PO BID 30 Days Clonazepam 1 Mg Tablet 1 Tab PO BID 30 Days Ambien (Zolpidem Tartrate) 5 Mg Tablet 1 Tab PO QHS do NOT take within 3 hours of Clonazepam/Klonopin Zoloft (Sertraline Hcl) 100 Mg Tablet 1.5 Tab PO DAILY Gabapentin 300 Mg Capsule 300 Mg PO BID 30 Days Allergies Allergies: Coded Allergies: No Known Drug Allergies (Unverified , 01/24/18) ROS Review of System Review of Systems: Review of Systems: General: Denies fever, chills, sweats, pos for fatigue Eyes: Denies drainage, blurred vision, eye redness HENT: Denies rhinorrhea, sore throat, earache Respiratory: Denies cough, shortness of breath, wheezing Cardiac: Denies edema, palpitations, chest pain GI: Reports abdominal pain, Nausea, vomiting, improving in ER MSK: Denies back pain, neck pain Skin: Denies rash, jaundice Neuro: Denies headache, dizziness General: YES: Fatigue PSYCHOLOGICAL ROS: YES: Anxiety; No: Behavioral Disorder, Concentration difficultie, Decreased libido, Depression, Disorientation, Hallucinations, Hostility, Irritablity, Memory difficulties, Mood Swings, Obsessive thoughts, Physical abuse, Sexual abuse, Sleep disturbances, Suicidal ideation, Other ALLERGY AND IMMUNOLOGY: No: Hives, Insect Bite Sensitivity, Itchy/Watery Eyes, Nasal Congestion, Post Nasal Drip, Seasonal Allergies, Other Hematological and Lymphatic: No: Bleeding Problems, Blood Clots, Blood Transfusions, Brusing, Night Sweats, Pallor, Swollen Lymph Nodes, Other Cardiovascular: yes Palpitations Gastrointestinal: Yes Nausea, Yes Vomiting Musculoskeletal: Yes Gait Disturbance, Yes Joint Stiffness Neurological: Yes Gait Disturbance Physical Exam Physical Exam Physical Exam: PE: General: Awake, alert, NAD. Well Nourished, well hydrated. Cooperative HEENT: Atraumatic, EOMI, PERRL, airway patent, moist oral mucosa Neck: Supple, trachea midline Respiratory: CTA bilaterally, normal effort, no wheezing/crackles CV: Irregularly irregular tachycardia, no murmur, cap refill <2 GI: Soft, nondistended, nontender, no masses MSK: No obvious deformities Skin: Warm, dry, intact Neuro: A&O x3, speech NL, sensory and motor grossly intact, no focal deficits Psych: Normal affect, normal mood, not suicidal or homicidal General: Alert, Oriented X3, Cooperative, No acute distress HEENT: EOMI, Mucous membr. moist/pink Lungs: Clear to auscultation, Normal air movement Heart: no murmurs, irregularly irregular Breasts: Not examined Abdomen: Normal bowel sounds, Soft Rectal Exam: not examined PELVIC: Examination not indicated Extremities: No cyanosis Neuro: Normal speech, Cranial nerves 3-12 NL Psych/Mental Status: Mental status NL Vitals Vitals Vital Signs Date Time Temp Pulse Resp B/P (MAP) Pulse Ox O2 Delivery O2 Flow Rate FiO2 05/08/20 12:36 162 120/91 05/08/20 11:14 97 Room Air 05/08/20 09:33 98.1 19 98.1 Labs Labs Laboratory Tests Test 05/08/20 11:20 05/08/20 12:00 White Blood Count 7.8 x10^3/uL (4.0-11.0) Red Blood Count 4.44 x10^6/uL (3.50-5.40) Hemoglobin 15.1 g/dL (12.0-15.5) Hematocrit 45.4 % (36.0-47.0) Mean Corpuscular Volume 102 fL (79-100) Mean Corpuscular Hemoglobin 34 pg (25-35) Mean Corpuscular Hemoglobin Concent 33 g/dL (31-37) Red Cell Distribution Width 14.9 % (11.5-14.5) Platelet Count 227 x10^3/uL (140-400) Neutrophils (%) (Auto) 62 % (31-73) Lymphocytes (%) (Auto) 28 % (24-48) Monocytes (%) (Auto) 10 % (0-9) Eosinophils (%) (Auto) 1 % (0-3) Basophils (%) (Auto) 0 % (0-3) Neutrophils # (Auto) 4.8 x10^3/uL (1.8-7.7) Lymphocytes # (Auto) 2.2 x10^3/uL (1.0-4.8) Monocytes # (Auto) 0.8 x10^3/uL (0.0-1.1) Eosinophils # (Auto) 0.1 x10^3/uL (0.0-0.7) Basophils # (Auto) 0.0 x10^3/uL (0.0-0.2) Sodium Level 140 mmol/L (136-145) Potassium Level 4.0 mmol/L (3.5-5.1) Chloride Level 105 mmol/L (98-107) Carbon Dioxide Level 28 mmol/L (21-32) Anion Gap 7 (6-14) Blood Urea Nitrogen 5 mg/dL (7-20) Creatinine 0.6 mg/dL (0.6-1.0) Estimated GFR (Cockcroft-Gault) 100.0 BUN/Creatinine Ratio 8 (6-20) Glucose Level 112 mg/dL (70-99) Calcium Level 9.1 mg/dL (8.5-10.1) Total Bilirubin 0.7 mg/dL (0.2-1.0) Aspartate Amino Transf (AST/SGOT) 53 U/L (15-37) Alanine Aminotransferase (ALT/SGPT) 36 U/L (14-59) Alkaline Phosphatase 154 U/L (46-116) Total Protein 7.0 g/dL (6.4-8.2) Albumin 2.9 g/dL (3.4-5.0) Albumin/Globulin Ratio 0.7 (1.0-1.7) Lipase 74 U/L (73-393) Urine Collection Type U cath Urine Color Yellow Urine Clarity Clear Urine pH 7.5 (<5.0-8.0) Urine Specific Armstrong 1.015 (1.000-1.030) Urine Protein Negative mg/dL (NEG-TRACE) Urine Glucose (UA) Negative mg/dL (NEG) Urine Ketones (Stick) Negative mg/dL (NEG) Urine Blood Trace (NEG) Urine Nitrite Positive (NEG) Urine Bilirubin Negative (NEG) Urine Urobilinogen Dipstick 1.0 mg/dL (0.2 mg/dL) Urine Leukocyte Esterase Large (NEG) Urine RBC 1-2 /HPF (0-2) Urine WBC 11-20 /HPF (0-4) Urine Squamous Epithelial Cells Mod /LPF Urine Bacteria Many /HPF (0-FEW) Urine Hyaline Casts Few /HPF Urine Mucus Slight /LPF Laboratory Tests Test 05/08/20 11:20 05/08/20 12:00 White Blood Count 7.8 x10^3/uL (4.0-11.0) Red Blood Count 4.44 x10^6/uL (3.50-5.40) Hemoglobin 15.1 g/dL (12.0-15.5) Hematocrit 45.4 % (36.0-47.0) Mean Corpuscular Volume 102 fL (79-100) Mean Corpuscular Hemoglobin 34 pg (25-35) Mean Corpuscular Hemoglobin Concent 33 g/dL (31-37) Red Cell Distribution Width 14.9 % (11.5-14.5) Platelet Count 227 x10^3/uL (140-400) Neutrophils (%) (Auto) 62 % (31-73) Lymphocytes (%) (Auto) 28 % (24-48) Monocytes (%) (Auto) 10 % (0-9) Eosinophils (%) (Auto) 1 % (0-3) Basophils (%) (Auto) 0 % (0-3) Neutrophils # (Auto) 4.8 x10^3/uL (1.8-7.7) Lymphocytes # (Auto) 2.2 x10^3/uL (1.0-4.8) Monocytes # (Auto) 0.8 x10^3/uL (0.0-1.1) Eosinophils # (Auto) 0.1 x10^3/uL (0.0-0.7) Basophils # (Auto) 0.0 x10^3/uL (0.0-0.2) Sodium Level 140 mmol/L (136-145) Potassium Level 4.0 mmol/L (3.5-5.1) Chloride Level 105 mmol/L (98-107) Carbon Dioxide Level 28 mmol/L (21-32) Anion Gap 7 (6-14) Blood Urea Nitrogen 5 mg/dL (7-20) Creatinine 0.6 mg/dL (0.6-1.0) Estimated GFR (Cockcroft-Gault) 100.0 BUN/Creatinine Ratio 8 (6-20) Glucose Level 112 mg/dL (70-99) Calcium Level 9.1 mg/dL (8.5-10.1) Total Bilirubin 0.7 mg/dL (0.2-1.0) Aspartate Amino Transf (AST/SGOT) 53 U/L (15-37) Alanine Aminotransferase (ALT/SGPT) 36 U/L (14-59) Alkaline Phosphatase 154 U/L (46-116) Total Protein 7.0 g/dL (6.4-8.2) Albumin 2.9 g/dL (3.4-5.0) Albumin/Globulin Ratio 0.7 (1.0-1.7) Lipase 74 U/L (73-393) Urine Collection Type U cath Urine Color Yellow Urine Clarity Clear Urine pH 7.5 (<5.0-8.0) Urine Specific Armstrong 1.015 (1.000-1.030) Urine Protein Negative mg/dL (NEG-TRACE) Urine Glucose (UA) Negative mg/dL (NEG) Urine Ketones (Stick) Negative mg/dL (NEG) Urine Blood Trace (NEG) Urine Nitrite Positive (NEG) Urine Bilirubin Negative (NEG) Urine Urobilinogen Dipstick 1.0 mg/dL (0.2 mg/dL) Urine Leukocyte Esterase Large (NEG) Urine RBC 1-2 /HPF (0-2) Urine WBC 11-20 /HPF (0-4) Urine Squamous Epithelial Cells Mod /LPF Urine Bacteria Many /HPF (0-FEW) Urine Hyaline Casts Few /HPF Urine Mucus Slight /LPF Images Images EXAM: Two-dimensional and M-mode echocardiogram with Doppler and color Doppler. Other Information Quality : Fair Rhythm : Atrial Fibrillation INDICATION Atrial Fibrillation 2D DIMENSIONS RVDd 2.2 (2.9-3.5cm) Left Atrium(2D) 4.5 (1.6-4.0cm) IVSd 1.0 (0.7-1.1cm) Aortic Root(2D) 2.5 (2.0-3.7cm) LVDd 5.1 (3.9-5.9cm) LVOT Diameter 2.4 (1.8-2.4cm) PWd 1.0 (0.7-1.1cm) LVDs 3.2 (2.5-4.0cm) FS (%) 36.8 % SV 81.2 ml LVEF(%) 65.0 (>50%) Aortic Valve AoV Peak Anders. 120.1cm/s AoV VTI 14.3cm AO Peak GR. 5.8mmHg LVOT VTI 10.13cm AO Mean GR. 3mmHg PIPPA (VTI) 3.10cm2 AI P 1/2 Time 247ms Mitral Valve MV E Velocity 137.1cm/s MV E Peak Gr. 122mmHg MV DECEL TIME 104ms Tricuspid Valve TR P. Velocity 321cm/s RAP ESTIMATE 15mmHg TR Peak Gr. 41mmHg RVSP 56mmHg LEFT VENTRICLE The left ventricle is normal size. There is normal left ventricular wall thickness. The left ventricular systolic function is normal . The Ejection Fraction is 55-60%. There is normal LV segmental wall motion. RIGHT VENTRICLE The right ventricle is normal size. The right ventricular systolic function is normal. ATRIA The left atrium is mildly dilated. The right atrium is mildly dilated. The interatrial septum is intact with no evidence for an atrial septal defect or patent foramen ovale as noted on 2-D or Doppler imaging. AORTIC VALVE The aortic valve is not well visualized. Doppler and Color Flow revealed moderate aortic regurgitation. There is no significant aortic valvular stenosis. MITRAL VALVE The mitral valve is calcified but opens well. Posterior mitral annular calcification is mild. There is no evidence of mitral valve prolapse. There is no mitral valve stenosis. Doppler and Color-flow revealed mild to moderate mitral regurgitation. TRICUSPID VALVE The tricuspid valve is normal in structure and function. Doppler and Color Flow revealed trace tricuspid regurgitation. There is moderate pulmonary hypertension. The PA pressure was estimated at 56 mmHg. There is no tricuspid valve stenosis. PULMONIC VALVE The pulmonic valve is not well visualized. Doppler and Color Flow revealed trace pulmonic valvular regurgitation. There is no pulmonic valvular stenosis. GREAT VESSELS The aortic root is normal in size. The ascending aorta is not well seen. The IVC is dilated and collapses <50% with inspiration. PERICARDIAL EFFUSION There is no evidence of significant pericardial effusion. Critical Notification Critical Value: No <Conclusion> The left ventricular systolic function is normal . The Ejection Fraction is 55-60%. There is normal LV segmental wall motion. Moderate aortic regurgitation. Mild to moderate mitral regurgitation. Trace tricuspid regurgitation. There is moderate pulmonary hypertension. The PA pressure was estimated at 56 mmHg. There is no evidence of significant pericardial effusion. Signed by : Yolis Christopher, Electronically Approved : 01/24/2018 16:36:54 DICTATED and SIGNED BY: YOLIS CHRISTOPHER MD DATE: 01/24/[address] ABD PELV W/ORAL IV CONTRAST Indication: Abdominal pain, nausea and vomiting, diarrhea Technique: Postcontrast CT imaging was performed of the abdomen pelvis, multiplanar reconstruction images submitted. Oral contrast was also given. One or more of the following individualized dose reduction techniques were utilized for this examination: 1. Automated exposure control 2. Adjustment of the mA and/or kV according to patient size 3. Use of iterative reconstruction technique. Comparison: September 21, 2004 CT exam Findings: There is motion degradation. There is calcified granuloma left lower lobe at the base. There is a new hypodense lesion of left lobe of the liver about 1.8 cm, density measurements greater than a simple cyst 23 Hounsfield units. There is again focus of calcification of the anterior liver more inferiorly not associated with significant focal mass. Gallbladder is present without obvious intraluminal abnormality by CT although appears somewhat distended. There is no new adrenal nodularity. Both kidneys enhance, no hydronephrosis. There is a lobulated contour of the kidneys bilaterally. No significant focal abnormality is identified of the spleen or pancreas. The bowel is not significantly dilated. No free fluid or free air is identified. There is wall thickening greater anteriorly of the urinary bladder although fairly similar compared with previous exam. There is minimal fat in the left inguinal canal, no bowel. There is some scattered plaque of the abdominal aorta and iliac arteries. There is multilevel thoracolumbar degenerative disc disease also multilevel lumbar facet degenerative change. There is now superior L4 compression deformity. IMPRESSION: 1. Gallbladder appears slightly distended without obvious intraluminal abnormality by CT, correlation with site of pain advised. Findings could be further evaluated with ultrasound as per clinical indication. 2. There is now hypodense lesion of the left lobe of the liver, density measurements greater than a simple cyst, nonemergent ultrasound evaluation recommended for better characterization. 3. There is nonspecific wall thickening of the urinary bladder greater anteriorly. Cystitis is considered unlikely given presence on previous exam, although difficult to exclude an underlying mass by this exam. 4. There is now superior L4 compression deformity although otherwise of uncertain chronicity, correlation with any focal point tenderness advised. Electronically signed by: Rick Zhu MD (05/08/2020 12:31 PM) [id number] VTE Prophylaxis Ordered VTE Prophylaxis Devices: No VTE Pharmacological Prophylaxi: Yes Assessment/Plan Assessment/Plan IMPRESSION 1. AFIB RVR: 2. HX NONCOMPLIANCE SEC FINANCIAL issues 3. COPD/moderate pulmonary HTN with continued tobaccoism: ECHO 2018 , Mild to moderate mitral regurgitation. Trace tricuspid regurgitation.moderate pulmonary hypertension. PA pressure was estimated at 56 mmHg. 4. Chronic diastolic CHF: 5. AYAN - needs outpt sleep study 6. Macrocytosis: outpt f/u with pcp 7. Morbid obesity 8. Marijuana use 9. Valvular insufficiency: mod AI, mild to mod MR 10. Subclinical hypothyroidism 11. HLP 12. UTI 13. Complicated social stressors 14. nausea and vomiting Gallbladder appears slightly distended without obvious intraluminal abnormality by CT, PLAN ADMIT CVC BED Consult cardiology IV CARDIZEM DRIP ECHO iv zofran restart eliquis iv rocephin ABD SONO stop thc use 77 MIN pt exam, chart review, > 50% of time spent with exam, chart review, pt care coordination Justicifation of Admission Dx: Justifications for Admission: Justification of Admission Dx: Yes VIR[place]IA NEFF MD May 08, 2020 13:27
[2020-05-08] MEDS: IV NORMAL SALINE 1000ML BAG 1,000 ML IV SCH ×2 (13:35→22:17)
[2020-05-08] MEDS ORDERED: guaiFENesin ORAL 200 MG/10 ML LIQUID. PO PRN (13:45)
[2020-05-08] MEDS ORDERED: ONDANSETRON PF 4 MG/2 ML VIAL. IV PRN (13:45)
[2020-05-08] MEDS ORDERED: SODIUM PHOSPHATES 19/7GM 133 ML ENEMA. PR PRN (13:45)
[2020-05-08] MEDS ORDERED: ACETAMINOPHEN 650 MG SUPP.RECT. PR PRN (13:45)
[2020-05-08] MEDS ORDERED: DOCUSATE SODIUM 100 MG CAPSULE. PO PRN (13:45)
[2020-05-08] MEDS ORDERED: ACETAMINOPHEN 325 MG TABLET. PO PRN (13:45)
[2020-05-08] MEDS ORDERED: 0.9 % SODIUM CHLORIDE 10 ML DISP.SYRIN. IV PRN (13:45)
--- NOTE | 2020-05-08 15:21 | RAD ---
ABDOMEN COMPLETE History: Vomiting, abnormal CT Comparison: CT abdomen and pelvis this same day Findings: Multiple sonographic images of the abdomen are submitted. There is segmental visualization of the inferior vena cava. Visualized abdominal aortic caliber is within normal limits, scattered plaque present. However the abdominal aorta is incompletely seen due to bowel gas. No abnormality is demonstrated of the visualized pancreas. Focus of abnormal low density of the left lobe of the liver on CT corresponds with focus of hypoechogenicity with minimal internal echoes and increased through transmission, not internally hypervascular on color Doppler imaging. Right lobe of the liver measured 17.9 cm longitudinal. There is some dependent echogenicity in the gallbladder lumen likely due to gallbladder sludge. Gallbladder wall is not significantly thickened. Proximal common bile duct is somewhat dilated about 0.9 cm although distally not significantly dilated. Right kidney measured 12 x 3.9 x 4.7 cm, no hydronephrosis. Spleen measured 11.2 cm. Left kidney measured 10.7 x 5.5 x 5.1 cm, no hydronephrosis. Impression: 1. There is dependent echogenicity in the gallbladder lumen likely due to a sludge. Proximal common bile duct is dilated about 0.9 cm although distally tapers to normal caliber. 2. Focus of low density of the left lobe of the liver on CT corresponds with cystic features on ultrasound. Electronically signed by: Rick Zhu MD (05/08/2020 3:18 PM) [place] [id number]
--- NOTE | 2020-05-08 15:50 | PDOC2 ---
GI CONSULT Date of Service: DATE: 05/08/20 TIME: 15:32 Reason For Consult: intractable vomiting HPI: HPI: 64 y/o female admitted through ER. Cousin Janina provides much of history. Evicted, went to motel, fell off bed because it's higher than what she's used to, broke left shoulder. Was seen at ER twice and discharged, has follow-up w/ new PCP on 05/12/20. Hasn't taken any prescription medications x 3 weeks. GI-sands has had decreased appetite w/ 100 pound unintentional weight loss over the past year. Cousin reports n/v and very little oral intake x 1 week. Has had a few bites of food or maybe half a sandwich - vomits about 45 min later. H/o GERD on OTC Prilosec - has continued this during illness. Had something available for pain but didn't take it due to n/v (and can't remember name - started with a P?) Denies dysphagia, hematemesis, abd pain, diarrhea, constipation, hematochezia, and melena. No previous EGD or colonoscopy. No GB, liver, pancreas, or PUD history. Notes doesn't take diuretics due to urinary incontinence. PMH: PMH: A Fib, HTN, CHF, COPD, anxiety/depression/mood disorder, fibromyalgia, OA FH: Family History: Cancer (parents - lung) Social History: Smoke: <1 pack per day ALCOHOL: other (6 pack of beer each week) Drugs: Marijuana ROS: GEN: Denies fevers, chills, sweats HEENT: Denies blurred vision, sore throat CV: Denies chest pain RESP: Denies shortness of air, cough GI: Per HPI : Denies hematuria, dysuria ENDO: +weight loss NEURO: Denies confusion, dizziness MSK: +shoulder pain SKIN: Denies jaundice, pruritus Vitals: Vitals: Vital Signs Date Time Temp Pulse Resp B/P (MAP) Pulse Ox O2 Delivery O2 Flow Rate FiO2 05/08/20 15:06 124 119/70 (86) 95 Room Air 05/08/20 09:33 98.1 19 98.1 Labs: Labs: Laboratory Tests Test 05/08/20 11:20 05/08/20 12:00 White Blood Count 7.8 x10^3/uL (4.0-11.0) Red Blood Count 4.44 x10^6/uL (3.50-5.40) Hemoglobin 15.1 g/dL (12.0-15.5) Hematocrit 45.4 % (36.0-47.0) Mean Corpuscular Volume 102 fL (79-100) Mean Corpuscular Hemoglobin 34 pg (25-35) Mean Corpuscular Hemoglobin Concent 33 g/dL (31-37) Red Cell Distribution Width 14.9 % (11.5-14.5) Platelet Count 227 x10^3/uL (140-400) Neutrophils (%) (Auto) 62 % (31-73) Lymphocytes (%) (Auto) 28 % (24-48) Monocytes (%) (Auto) 10 % (0-9) Eosinophils (%) (Auto) 1 % (0-3) Basophils (%) (Auto) 0 % (0-3) Neutrophils # (Auto) 4.8 x10^3/uL (1.8-7.7) Lymphocytes # (Auto) 2.2 x10^3/uL (1.0-4.8) Monocytes # (Auto) 0.8 x10^3/uL (0.0-1.1) Eosinophils # (Auto) 0.1 x10^3/uL (0.0-0.7) Basophils # (Auto) 0.0 x10^3/uL (0.0-0.2) Sodium Level 140 mmol/L (136-145) Potassium Level 4.0 mmol/L (3.5-5.1) Chloride Level 105 mmol/L (98-107) Carbon Dioxide Level 28 mmol/L (21-32) Anion Gap 7 (6-14) Blood Urea Nitrogen 5 mg/dL (7-20) Creatinine 0.6 mg/dL (0.6-1.0) Estimated GFR (Cockcroft-Gault) 100.0 BUN/Creatinine Ratio 8 (6-20) Glucose Level 112 mg/dL (70-99) Calcium Level 9.1 mg/dL (8.5-10.1) Total Bilirubin 0.7 mg/dL (0.2-1.0) Aspartate Amino Transf (AST/SGOT) 53 U/L (15-37) Alanine Aminotransferase (ALT/SGPT) 36 U/L (14-59) Alkaline Phosphatase 154 U/L (46-116) Total Protein 7.0 g/dL (6.4-8.2) Albumin 2.9 g/dL (3.4-5.0) Albumin/Globulin Ratio 0.7 (1.0-1.7) Lipase 74 U/L (73-393) Urine Collection Type U cath Urine Color Yellow Urine Clarity Clear Urine pH 7.5 (<5.0-8.0) Urine Specific [place] 1.015 (1.000-1.030) Urine Protein Negative mg/dL (NEG-TRACE) Urine Glucose (UA) Negative mg/dL (NEG) Urine Ketones (Stick) Negative mg/dL (NEG) Urine Blood Trace (NEG) Urine Nitrite Positive (NEG) Urine Bilirubin Negative (NEG) Urine Urobilinogen Dipstick 1.0 mg/dL (0.2 mg/dL) Urine Leukocyte Esterase Large (NEG) Urine RBC 1-2 /HPF (0-2) Urine WBC 11-20 /HPF (0-4) Urine Squamous Epithelial Cells Mod /LPF Urine Bacteria Many /HPF (0-FEW) Urine Hyaline Casts Few /HPF Urine Mucus Slight /LPF Allergies: Coded Allergies: No Known Drug Allergies (Unverified , 01/24/18) Medications: Current Medications Medications (Trade) Dose Ordered Sig/Steffen Route PRN Reason Start Time Stop Time Status Last Admin Dose Admin Sodium Chloride 1,000 ml @ 1,000 mls/hr 1X ONCE IV 05/08/20 10:00 05/08/20 10:59 DC 05/08/20 10:17 Ondansetron HCl (Zofran Odt) 4 mg 1X ONCE PO 05/08/20 10:45 05/08/20 10:46 DC 05/08/20 10:17 Diltiazem HCl (Cardizem 24hr Cd) 120 mg 1X ONCE PO 05/08/20 12:00 05/08/20 12:01 DC 05/08/20 11:57 Iohexol (Omnipaque 240 Mg/ml) 30 ml 1X ONCE PO 05/08/20 11:45 05/08/20 11:46 DC 05/08/20 11:45 Iohexol (Omnipaque 300 Mg/ml) 75 ml 1X ONCE IV 05/08/20 11:45 05/08/20 11:46 DC 05/08/20 11:45 Diltiazem HCl (Cardizem Iv Push) 20 mg 1X ONCE IVP 05/08/20 12:45 05/08/20 12:46 DC 05/08/20 12:36 Diltiazem HCl 125 mg/Sodium Chloride 125 ml @ 5 mls/hr CONT PRN IV SEE I/O RECORD 05/08/20 13:15 05/08/20 13:34 Imaging: Imaging: CT A/P 05/08 IMPRESSION: 1. Gallbladder appears slightly distended without obvious intraluminal abnormality by CT, correlation with site of pain advised. Findings could be further evaluated with ultrasound as per clinical indication. 2. There is now hypodense lesion of the left lobe of the liver, density measurements greater than a simple cyst, nonemergent ultrasound evaluation recommended for better characterization. 3. There is nonspecific wall thickening of the urinary bladder greater anteriorly. Cystitis is considered unlikely given presence on previous exam, although difficult to exclude an underlying mass by this exam. 4. There is now superior L4 compression deformity although otherwise of uncertain chronicity, correlation with any focal point tenderness advised. Abd US 05/08 Impression: 1. There is dependent echogenicity in the gallbladder lumen likely due to a sludge. Proximal common bile duct is dilated about 0.9 cm although distally tapers to normal caliber. 2. Focus of low density of the left lobe of the liver on CT corresponds with cystic features on ultrasound. PE: GEN: NAD - cousin anxious HEENT: Atraumatic, PERRL LUNGS: diminished anteriorly HEART: irregularly irregular ABD: NABS, S/ND/NT EXTREMITY: No edema SKIN: bruising left shoulder, bruising/lac to face NEURO/PSYCH: A & O 3 A/P: A/P: A Fib RVR, UTI, non-compliance Recent fall w/ left shoulder fx, also note L4 compression deformity on CT Decreased appetite, weight loss x 1 year N/v x 1 week Macrocytosis, elevated AST and Alk Phos - ?drinks more than she says GERD - on OTC PPI CRC screen - none GB sludge, dilated CBD (0.9cm), probable hepatic cyst -- Await cardiology evaluation and observe. Add PPI - IV for now w/ n/v. Change to PO as able. Her cousin says she's hungry - okay to try eating per GI. Outpt screening colonoscopy +/- EGD. [place] May 08, 2020 15:50
[2020-05-08] MEDS: IPRATRPIUM/ALBUTEROL 0.5/2.5MG 3 ML NEBU. NEB SCH ×3 (16:00→23:51)
--- NOTE | 2020-05-08 16:05 | PDOC2 ---
MELANIA MOORE ROUTE PROCESS ADMINISTRATOR 05/08/20 1605: CARDIAC CONSULT DATE OF CONSULT Date of Consult DATE: 05/08/20 TIME: 15:36 REASON FOR CONSULT Reason for Consult: AFIB RVR REFERRING PHYSICIAN Referring Physician: Fullbright SOURCE Source: Chart review, Patient HISTORY OF PRESENT ILLNESS HISTORY OF PRESENT ILLNESS This is a pleasant 64 yo female admitted for complains of weakness, and GI symptoms. Reports that she has been having nausea and vomiting spells in the last 3 weeks. Sometimes the color is greenish. No fever or chills. Her appetite has been off and started having watery stools about 2 days ago. Also with gen eralized abdominal discomfort. Her stool is not bloody and no hematemesis. She does not suspect any food poisoning and no recent travels. She took some prilosec but her GI symptoms stayed. She finally came to the hospital due to increasing weakness. She has not taken her medications since Tuesday due to her GI symptoms. No recent falls or injury. Denies any SOA or chest pain. She lives with her sister and her sister does not have any GI symptoms. She has AFIB hx and currently has AFIB RVR. 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 Her cousin also mentioned to RN that she may not have been taking her meds longer that just last Tuesday. PAST MEDICAL HISTORY Past Medical History Cardiovascular: AFIB, CHF, valvular insufficiency mod AI, MR, pulmonary HTN Pulmonary: COPD Psych: Anxiety, Depression Musculoskeletal: Osteoarthritis Rheumatologic: Fibromyalgia ENT: Other (periodontal disease) PAST SURGICAL HISTORY Past Surgical History: Tubal Ligation FAMILY HISTORY Family History: Hypertension SOCIAL HISTORY Social History Smoke: 1 pack per day ALCOHOL: occasionally Drugs: Marijuana Lives: in hotel, recently evicted CURRENT MEDICATIONS CURRENT MEDICATIONS Current Medications Medications (Trade) Dose Ordered Sig/Steffen Route PRN Reason Start Time Stop Time Status Last Admin Dose Admin Sodium Chloride 1,000 ml @ 1,000 mls/hr 1X ONCE IV 05/08/20 10:00 05/08/20 10:59 DC 05/08/20 10:17 Ondansetron HCl (Zofran Odt) 4 mg 1X ONCE PO 05/08/20 10:45 05/08/20 10:46 DC 05/08/20 10:17 Diltiazem HCl (Cardizem 24hr Cd) 120 mg 1X ONCE PO 05/08/20 12:00 05/08/20 12:01 DC 05/08/20 11:57 Iohexol (Omnipaque 240 Mg/ml) 30 ml 1X ONCE PO 05/08/20 11:45 05/08/20 11:46 DC 05/08/20 11:45 Iohexol (Omnipaque 300 Mg/ml) 75 ml 1X ONCE IV 05/08/20 11:45 05/08/20 11:46 DC 05/08/20 11:45 Diltiazem HCl (Cardizem Iv Push) 20 mg 1X ONCE IVP 05/08/20 12:45 05/08/20 12:46 DC 05/08/20 12:36 Diltiazem HCl 125 mg/Sodium Chloride 125 ml @ 5 mls/hr CONT PRN IV SEE I/O RECORD 05/08/20 13:15 05/08/20 13:34 ALLERGIES ALLERGIES: Coded Allergies: No Known Drug Allergies (Unverified , 01/24/18) ROS Review of System 14 point ROS evaluated with pertinent positives noted per HPI PHYSICAL EXAM General: Alert, Oriented X3, Cooperative, No acute distress HEENT: Atraumatic, Mucous membr. moist/pink Lungs: Clear to auscultation, Normal air movement Heart: Other (AFIB RVR) Abdomen: Soft, Other (obese) Extremities: No cyanosis, No edema Skin: Other (periorbital ecchymoses) Neuro: Normal speech, Sensation intact Psych/Mental Status: Mental status NL, Mood NL MUSCULOSKELETAL: Osteoarthritic changes both hands VITALS/I&O VITALS/I&O: Vital Signs Date Time Temp Pulse Resp B/P (MAP) Pulse Ox O2 Delivery O2 Flow Rate FiO2 05/08/20 15:06 124 119/70 (86) 95 Room Air 05/08/20 09:33 98.1 19 98.1 LABS Lab: Laboratory Tests Test 05/08/20 11:20 05/08/20 12:00 White Blood Count 7.8 x10^3/uL (4.0-11.0) Red Blood Count 4.44 x10^6/uL (3.50-5.40) Hemoglobin 15.1 g/dL (12.0-15.5) Hematocrit 45.4 % (36.0-47.0) Mean Corpuscular Volume 102 fL (79-100) H Mean Corpuscular Hemoglobin 34 pg (25-35) Mean Corpuscular Hemoglobin Concent 33 g/dL (31-37) Red Cell Distribution Width 14.9 % (11.5-14.5) H Platelet Count 227 x10^3/uL (140-400) Neutrophils (%) (Auto) 62 % (31-73) Lymphocytes (%) (Auto) 28 % (24-48) Monocytes (%) (Auto) 10 % (0-9) H Eosinophils (%) (Auto) 1 % (0-3) Basophils (%) (Auto) 0 % (0-3) Neutrophils # (Auto) 4.8 x10^3/uL (1.8-7.7) Lymphocytes # (Auto) 2.2 x10^3/uL (1.0-4.8) Monocytes # (Auto) 0.8 x10^3/uL (0.0-1.1) Eosinophils # (Auto) 0.1 x10^3/uL (0.0-0.7) Basophils # (Auto) 0.0 x10^3/uL (0.0-0.2) Sodium Level 140 mmol/L (136-145) Potassium Level 4.0 mmol/L (3.5-5.1) Chloride Level 105 mmol/L (98-107) Carbon Dioxide Level 28 mmol/L (21-32) Anion Gap 7 (6-14) Blood Urea Nitrogen 5 mg/dL (7-20) L Creatinine 0.6 mg/dL (0.6-1.0) Estimated GFR (Cockcroft-Gault) 100.0 BUN/Creatinine Ratio 8 (6-20) Glucose Level 112 mg/dL (70-99) H Calcium Level 9.1 mg/dL (8.5-10.1) Total Bilirubin 0.7 mg/dL (0.2-1.0) Aspartate Amino Transferase (AST) 53 U/L (15-37) H Alanine Aminotransferase (ALT) 36 U/L (14-59) Alkaline Phosphatase 154 U/L (46-116) H Total Protein 7.0 g/dL (6.4-8.2) Albumin 2.9 g/dL (3.4-5.0) L Albumin/Globulin Ratio 0.7 (1.0-1.7) L Lipase 74 U/L (73-393) Urine Collection Type U cath Urine Color Yellow Urine Clarity Clear Urine pH 7.5 (<5.0-8.0) Urine Specific [place] 1.015 (1.000-1.030) Urine Protein Negative mg/dL (NEG-TRACE) Urine Glucose (UA) Negative mg/dL (NEG) Urine Ketones (Stick) Negative mg/dL (NEG) Urine Blood Trace (NEG) Urine Nitrite Positive (NEG) Urine Bilirubin Negative (NEG) Urine Urobilinogen Dipstick 1.0 mg/dL (0.2 mg/dL) Urine Leukocyte Esterase Large (NEG) Urine RBC 1-2 /HPF (0-2) Urine WBC 11-20 /HPF (0-4) Urine Squamous Epithelial Cells Mod /LPF Urine Bacteria Many /HPF (0-FEW) Urine Hyaline Casts Few /HPF Urine Mucus Slight /LPF Laboratory Tests 05/08/20 11:20 Laboratory Tests 05/08/20 11:20 ECHOCARDIOGRAM ECHOCARDIOGRAM <Conclusion> The left ventricular systolic function is normal . The Ejection Fraction is 55-60%. There is normal LV segmental wall motion. Moderate aortic regurgitation. Mild to moderate mitral regurgitation. Trace tricuspid regurgitation. There is moderate pulmonary hypertension. The PA pressure was estimated at 56 mmHg. There is no evidence of significant pericardial effusion. DATE: 01/24/18 1636 ASSESSMENT/PLAN ASSESSMENT/PLAN 1. AFIB RVR: persistent, noted on RVR at [facility] from recent visit as noted below. Recurrent RVR likely from GI issues with associated missed meds 2. Abdominal pain/vomiting/diarrhea: imaging noted with GB sludge. GI consulted 3. COPD with tobaccoism: stable 4. Morbid obesity with suspected AYAN 5. Marijuana use 6. Valvular insufficiency: mod AI, mild to mod MR 7. HLP 8. UTI: per PCP 9. Recent traumatic mechanical fall: syncope vs rolled out of bed. on 04/17/2020 and sustained a closed acute nondisplaced transverse fracture of the left humeral neck and acute mildly comminuted fracture of the greater tuberosity without significant displacement, no surgery warranted seen at [facility] evaluated by ortho 04/17/2020 and placed on immobilizer. And and again in ED [facility] on 05/03/2020 due to pain and intolerance to immobilizer. Will defer to PCP 10. HTN urgency Recommendations 1. TSH and INR and UDS. Continue cardizem drip and will titrate up per HR trend. Will switch to PO tomorrow. Resume home metoprolol and eliquis 2. 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 Discussed follow up and will await TTE 3. Will need outpt AYAN 4. Reinforced smoking cessation and marijuana cessation 5. Will consider for outpt stress test for further risk stratification if none 6. Discussed complaince. SS consult YOLIS INIGUEZ MD 05/08/20 1731: CARDIAC CONSULT ASSESSMENT/PLAN ASSESSMENT/PLAN Patient seen and examined. Agree with SIGNAL PROCESSING ENGINEER's assessment and plan. Continue to titrate Cardizem drip for better rate control of atrial fibrillation Resume Eliquis for stroke prophylaxis Check 2D echo to assess LV systolic function Continue management of N/V/diarrhea/abdominal pain per GI team Thank you for your consultation MELANIA MOORE APRN May 08, 2020 16:05 YOLIS INIGUEZ MD May 08, 2020 17:31
[2020-05-08 16:13] LABS: PROTHROMBIN TIME PATIENT 14.6 SEC (11.7-14.0)
[2020-05-08] MEDS ORDERED: PANTOPRAZOLE IV PUSH 40 MG VIAL. IVP SCH (17:00)
[2020-05-08] MEDS ORDERED: hydrALAZINE 20 MG/ML VIAL. IVP PRN (18:45)
[2020-05-08] MEDS: METOPROLOL TART IMMED RELEASE 25 MG TABLET. PO SCH (22:13)
[2020-05-08] MEDS: APIXABAN 5 MG TABLET. PO SCH (22:13)
[2020-05-08] MEDS: ATORVASTATIN CALCIUM 10 MG TABLET. PO SCH (22:13)
[2020-05-09] VITALS (10 sets, daily range): BP systolic 103–153; BP diastolic 59–84
[2020-05-09] MEDS: IPRATRPIUM/ALBUTEROL 0.5/2.5MG 3 ML NEBU. NEB SCH ×3 (04:00→10:51)
[2020-05-09 05:50] LABS: ALBUMIN 2.8 g/dL (3.4-5.0); DIRECT BILIRUBIN 0.3 mg/dL (0.0-0.2); TOTAL BILIRUBIN 0.6 mg/dL (0.2-1.0); TOTAL PROTEIN 6.6 g/dL (6.4-8.2)
[2020-05-09] MEDS: cefTRIAXone IV Push 1 GM VIAL. IVP SCH (06:58)
[2020-05-09] MEDS: APIXABAN 5 MG TABLET. PO SCH ×2 (08:36→21:31)
[2020-05-09] MEDS: METOPROLOL TART IMMED RELEASE 25 MG TABLET. PO SCH ×2 (08:36→21:31)
[2020-05-09] MEDS: IV NORMAL SALINE 1000ML BAG 1,000 ML IV SCH ×2 (09:35→21:33)
--- NOTE | 2020-05-09 09:40 | PDOC ---
PROGRESS NOTES Date of Service: DATE: 05/09/20 TIME: 09:39 Chief Complaint Chief Complaint VTE Prophylaxis Ordered VTE Prophylaxis Devices: No VTE Pharmacological Prophylaxi: Yes Assessment/Plan Assessment/Plan IMPRESSION 1. AFIB RVR: 2. HX NONCOMPLIANCE SEC FINANCIAL issues 3. COPD/moderate pulmonary HTN with continued tobaccoism: ECHO 2018 , Mild to moderate mitral regurgitation. Trace tricuspid regurgitation.moderate pulmonary hypertension. PA pressure was estimated at 56 mmHg. 4. Chronic diastolic CHF: 5. AYAN - needs outpt sleep study 6. Macrocytosis: outpt f/u with pcp 7. Morbid obesity 8. Marijuana use 9. Valvular insufficiency: mod AI, mild to mod MR 10. Subclinical hypothyroidism 11. HLP 12. UTI 13. Complicated social stressors 14. nausea and vomiting Gallbladder appears slightly distended without obvious intraluminal abnormality by CT, PLAN ADMIT CVC BED Consult cardiology IV CARDIZEM DRIP ECHO iv zofran restart eliquis iv rocephin ABD SONO stop thc use 37 MIN pt exam, chart review, > 50% of time spent with exam, chart review, pt care coordination Justicifation of Admission Dx: Justicifation of Admission Dx: Justifications for Admission: Justification of Admission Dx: Yes Vitals Vitals Vital Signs Date Time Temp Pulse Resp B/P (MAP) Pulse Ox O2 Delivery O2 Flow Rate FiO2 05/09/20 08:36 96 130/76 05/09/20 07:00 98.1 20 96 Room Air 98.1 Physical Exam General: Alert, Oriented X3, Cooperative, No acute distress Heart: Other (AFIB RVR) Lungs: Clear, Other Abdomen: Soft, Other (obese) Extremities: No cyanosis, No edema Skin: Other (periorbital ecchymoses) Labs LABS Laboratory Tests Test 05/08/20 11:20 05/08/20 12:00 05/09/20 04:30 White Blood Count 7.8 x10^3/uL (4.0-11.0) Red Blood Count 4.44 x10^6/uL (3.50-5.40) Hemoglobin 15.1 g/dL (12.0-15.5) Hematocrit 45.4 % (36.0-47.0) Mean Corpuscular Volume 102 fL (79-100) Mean Corpuscular Hemoglobin 34 pg (25-35) Mean Corpuscular Hemoglobin Concent 33 g/dL (31-37) Red Cell Distribution Width 14.9 % (11.5-14.5) Platelet Count 227 x10^3/uL (140-400) Neutrophils (%) (Auto) 62 % (31-73) Lymphocytes (%) (Auto) 28 % (24-48) Monocytes (%) (Auto) 10 % (0-9) Eosinophils (%) (Auto) 1 % (0-3) Basophils (%) (Auto) 0 % (0-3) Neutrophils # (Auto) 4.8 x10^3/uL (1.8-7.7) Lymphocytes # (Auto) 2.2 x10^3/uL (1.0-4.8) Monocytes # (Auto) 0.8 x10^3/uL (0.0-1.1) Eosinophils # (Auto) 0.1 x10^3/uL (0.0-0.7) Basophils # (Auto) 0.0 x10^3/uL (0.0-0.2) Prothrombin Time 14.6 SEC (11.7-14.0) Prothromb Time International Ratio 1.2 (0.8-1.1) Sodium Level 140 mmol/L (136-145) Potassium Level 4.0 mmol/L (3.5-5.1) Chloride Level 105 mmol/L (98-107) Carbon Dioxide Level 28 mmol/L (21-32) Anion Gap 7 (6-14) Blood Urea Nitrogen 5 mg/dL (7-20) Creatinine 0.6 mg/dL (0.6-1.0) Estimated GFR (Cockcroft-Gault) 100.0 BUN/Creatinine Ratio 8 (6-20) Glucose Level 112 mg/dL (70-99) Calcium Level 9.1 mg/dL (8.5-10.1) Iron Level 49 ug/dL (50-170) Total Iron Binding Capacity 141 ug/dL (250-450) Iron Saturation 35 % (15-34) Total Bilirubin 0.7 mg/dL (0.2-1.0) 0.6 mg/dL (0.2-1.0) Aspartate Amino Transf (AST/SGOT) 53 U/L (15-37) 45 U/L (15-37) Alanine Aminotransferase (ALT/SGPT) 36 U/L (14-59) 32 U/L (14-59) Alkaline Phosphatase 154 U/L (46-116) 139 U/L (46-116) TY-Qao-I-Type Natriuretic Peptide 2117 pg/mL (0-124) Total Protein 7.0 g/dL (6.4-8.2) 6.6 g/dL (6.4-8.2) Albumin 2.9 g/dL (3.4-5.0) 2.8 g/dL (3.4-5.0) Albumin/Globulin Ratio 0.7 (1.0-1.7) Lipase 74 U/L (73-393) Thyroid Stimulating Hormone (TSH) 1.958 uIU/mL (0.358-3.74) Urine Collection Type U cath Urine Color Yellow Urine Clarity Clear Urine pH 7.5 (<5.0-8.0) Urine Specific [place] 1.015 (1.000-1.030) Urine Protein Negative mg/dL (NEG-TRACE) Urine Glucose (UA) Negative mg/dL (NEG) Urine Ketones (Stick) Negative mg/dL (NEG) Urine Blood Trace (NEG) Urine Nitrite Positive (NEG) Urine Bilirubin Negative (NEG) Urine Urobilinogen Dipstick 1.0 mg/dL (0.2 mg/dL) Urine Leukocyte Esterase Large (NEG) Urine RBC 1-2 /HPF (0-2) Urine WBC 11-20 /HPF (0-4) Urine Squamous Epithelial Cells Mod /LPF Urine Bacteria Many /HPF (0-FEW) Urine Hyaline Casts Few /HPF Urine Mucus Slight /LPF Direct Bilirubin 0.3 mg/dL (0.0-0.2) Vitamin B12 Level 649 pg/mL (247-911) Assessment and Plan Assessmemt and Plan Problems Medical Problems: (1) Atrial fibrillation with RVR Status: Acute Comment Review of Relevant I have reviewed the following items katie (where applicable) has been applied. Labs Laboratory Tests Test 05/08/20 11:20 05/08/20 12:00 05/09/20 04:30 White Blood Count 7.8 x10^3/uL (4.0-11.0) Red Blood Count 4.44 x10^6/uL (3.50-5.40) Hemoglobin 15.1 g/dL (12.0-15.5) Hematocrit 45.4 % (36.0-47.0) Mean Corpuscular Volume 102 fL (79-100) Mean Corpuscular Hemoglobin 34 pg (25-35) Mean Corpuscular Hemoglobin Concent 33 g/dL (31-37) Red Cell Distribution Width 14.9 % (11.5-14.5) Platelet Count 227 x10^3/uL (140-400) Neutrophils (%) (Auto) 62 % (31-73) Lymphocytes (%) (Auto) 28 % (24-48) Monocytes (%) (Auto) 10 % (0-9) Eosinophils (%) (Auto) 1 % (0-3) Basophils (%) (Auto) 0 % (0-3) Neutrophils # (Auto) 4.8 x10^3/uL (1.8-7.7) Lymphocytes # (Auto) 2.2 x10^3/uL (1.0-4.8) Monocytes # (Auto) 0.8 x10^3/uL (0.0-1.1) Eosinophils # (Auto) 0.1 x10^3/uL (0.0-0.7) Basophils # (Auto) 0.0 x10^3/uL (0.0-0.2) Prothrombin Time 14.6 SEC (11.7-14.0) Prothromb Time International Ratio 1.2 (0.8-1.1) Sodium Level 140 mmol/L (136-145) Potassium Level 4.0 mmol/L (3.5-5.1) Chloride Level 105 mmol/L (98-107) Carbon Dioxide Level 28 mmol/L (21-32) Anion Gap 7 (6-14) Blood Urea Nitrogen 5 mg/dL (7-20) Creatinine 0.6 mg/dL (0.6-1.0) Estimated GFR (Cockcroft-Gault) 100.0 BUN/Creatinine Ratio 8 (6-20) Glucose Level 112 mg/dL (70-99) Calcium Level 9.1 mg/dL (8.5-10.1) Iron Level 49 ug/dL (50-170) Total Iron Binding Capacity 141 ug/dL (250-450) Iron Saturation 35 % (15-34) Total Bilirubin 0.7 mg/dL (0.2-1.0) 0.6 mg/dL (0.2-1.0) Aspartate Amino Transf (AST/SGOT) 53 U/L (15-37) 45 U/L (15-37) Alanine Aminotransferase (ALT/SGPT) 36 U/L (14-59) 32 U/L (14-59) Alkaline Phosphatase 154 U/L (46-116) 139 U/L (46-116) OS-Lje-O-Type Natriuretic Peptide 2117 pg/mL (0-124) Total Protein 7.0 g/dL (6.4-8.2) 6.6 g/dL (6.4-8.2) Albumin 2.9 g/dL (3.4-5.0) 2.8 g/dL (3.4-5.0) Albumin/Globulin Ratio 0.7 (1.0-1.7) Lipase 74 U/L (73-393) Thyroid Stimulating Hormone (TSH) 1.958 uIU/mL (0.358-3.74) Urine Collection Type U cath Urine Color Yellow Urine Clarity Clear Urine pH 7.5 (<5.0-8.0) Urine Specific [place] 1.015 (1.000-1.030) Urine Protein Negative mg/dL (NEG-TRACE) Urine Glucose (UA) Negative mg/dL (NEG) Urine Ketones (Stick) Negative mg/dL (NEG) Urine Blood Trace (NEG) Urine Nitrite Positive (NEG) Urine Bilirubin Negative (NEG) Urine Urobilinogen Dipstick 1.0 mg/dL (0.2 mg/dL) Urine Leukocyte Esterase Large (NEG) Urine RBC 1-2 /HPF (0-2) Urine WBC 11-20 /HPF (0-4) Urine Squamous Epithelial Cells Mod /LPF Urine Bacteria Many /HPF (0-FEW) Urine Hyaline Casts Few /HPF Urine Mucus Slight /LPF Direct Bilirubin 0.3 mg/dL (0.0-0.2) Vitamin B12 Level 649 pg/mL (247-911) Laboratory Tests Test 05/08/20 11:20 05/08/20 12:00 05/09/20 04:30 White Blood Count 7.8 x10^3/uL (4.0-11.0) Red Blood Count 4.44 x10^6/uL (3.50-5.40) Hemoglobin 15.1 g/dL (12.0-15.5) Hematocrit 45.4 % (36.0-47.0) Mean Corpuscular Volume 102 fL (79-100) Mean Corpuscular Hemoglobin 34 pg (25-35) Mean Corpuscular Hemoglobin Concent 33 g/dL (31-37) Red Cell Distribution Width 14.9 % (11.5-14.5) Platelet Count 227 x10^3/uL (140-400) Neutrophils (%) (Auto) 62 % (31-73) Lymphocytes (%) (Auto) 28 % (24-48) Monocytes (%) (Auto) 10 % (0-9) Eosinophils (%) (Auto) 1 % (0-3) Basophils (%) (Auto) 0 % (0-3) Neutrophils # (Auto) 4.8 x10^3/uL (1.8-7.7) Lymphocytes # (Auto) 2.2 x10^3/uL (1.0-4.8) Monocytes # (Auto) 0.8 x10^3/uL (0.0-1.1) Eosinophils # (Auto) 0.1 x10^3/uL (0.0-0.7) Basophils # (Auto) 0.0 x10^3/uL (0.0-0.2) Prothrombin Time 14.6 SEC (11.7-14.0) Prothromb Time International Ratio 1.2 (0.8-1.1) Sodium Level 140 mmol/L (136-145) Potassium Level 4.0 mmol/L (3.5-5.1) Chloride Level 105 mmol/L (98-107) Carbon Dioxide Level 28 mmol/L (21-32) Anion Gap 7 (6-14) Blood Urea Nitrogen 5 mg/dL (7-20) Creatinine 0.6 mg/dL (0.6-1.0) Estimated GFR (Cockcroft-Gault) 100.0 BUN/Creatinine Ratio 8 (6-20) Glucose Level 112 mg/dL (70-99) Calcium Level 9.1 mg/dL (8.5-10.1) Iron Level 49 ug/dL (50-170) Total Iron Binding Capacity 141 ug/dL (250-450) Iron Saturation 35 % (15-34) Total Bilirubin 0.7 mg/dL (0.2-1.0) 0.6 mg/dL (0.2-1.0) Aspartate Amino Transf (AST/SGOT) 53 U/L (15-37) 45 U/L (15-37) Alanine Aminotransferase (ALT/SGPT) 36 U/L (14-59) 32 U/L (14-59) Alkaline Phosphatase 154 U/L (46-116) 139 U/L (46-116) VX-Mlh-Q-Type Natriuretic Peptide 2117 pg/mL (0-124) Total Protein 7.0 g/dL (6.4-8.2) 6.6 g/dL (6.4-8.2) Albumin 2.9 g/dL (3.4-5.0) 2.8 g/dL (3.4-5.0) Albumin/Globulin Ratio 0.7 (1.0-1.7) Lipase 74 U/L (73-393) Thyroid Stimulating Hormone (TSH) 1.958 uIU/mL (0.358-3.74) Urine Collection Type U cath Urine Color Yellow Urine Clarity Clear Urine pH 7.5 (<5.0-8.0) Urine Specific [place] 1.015 (1.000-1.030) Urine Protein Negative mg/dL (NEG-TRACE) Urine Glucose (UA) Negative mg/dL (NEG) Urine Ketones (Stick) Negative mg/dL (NEG) Urine Blood Trace (NEG) Urine Nitrite Positive (NEG) Urine Bilirubin Negative (NEG) Urine Urobilinogen Dipstick 1.0 mg/dL (0.2 mg/dL) Urine Leukocyte Esterase Large (NEG) Urine RBC 1-2 /HPF (0-2) Urine WBC 11-20 /HPF (0-4) Urine Squamous Epithelial Cells Mod /LPF Urine Bacteria Many /HPF (0-FEW) Urine Hyaline Casts Few /HPF Urine Mucus Slight /LPF Direct Bilirubin 0.3 mg/dL (0.0-0.2) Vitamin B12 Level 649 pg/mL (247-911) Medications Current Medications Sodium Chloride 1,000 ml @ 1,000 mls/hr 1X ONCE IV Last administered on 05/08/20at 10:17; Start 05/08/20 at 10:00; Stop 05/08/20 at 10:59; Status DC Ondansetron HCl (Zofran Odt) 4 mg STK-MED ONCE .ROUTE ; Start 05/08/20 at 10:11; Stop 05/08/20 at 10:12; Status DC Ondansetron HCl (Zofran Odt) 4 mg 1X ONCE PO Last administered on 05/08/20at 10:17; Start 05/08/20 at 10:45; Stop 05/08/20 at 10:46; Status DC Diltiazem HCl (Cardizem 24hr Cd) 120 mg 1X ONCE PO Last administered on 05/08/20at 11:57; Start 05/08/20 at 12:00; Stop 05/08/20 at 12:01; Status DC Iohexol (Omnipaque 240 Mg/ml) 30 ml 1X ONCE PO Last administered on 05/08/20at 1 1:45; Start 05/08/20 at 11:45; Stop 05/08/20 at 11:46; Status DC Iohexol (Omnipaque 300 Mg/ml) 75 ml 1X ONCE IV Last administered on 05/08/20at 11:45; Start 05/08/20 at 11:45; Stop 05/08/20 at 11:46; Status DC Info (CONTRAST GIVEN -- Rx MONITORING) 1 each PRN DAILY PRN MC SEE COMMENTS; Start 05/08/20 at 11:45; Stop 05/10/20 at 11:44 Diltiazem HCl (Cardizem Iv Push) 20 mg 1X ONCE IVP Last administered on 05/08/20at 12:36; Start 05/08/20 at 12:45; Stop 05/08/20 at 12:46; Status DC Diltiazem HCl (Cardizem Iv Push) 25 mg STK-MED ONCE .ROUTE ; Start 05/08/20 at 12:21; Stop 05/08/20 at 12:21; Status DC Diltiazem HCl 125 mg/Sodium Chloride 125 ml @ 5 mls/hr CONT PRN IV SEE I/O RECORD Last administered on 05/08/20at 13:34; Start 05/08/20 at 13:15; Stop 05/09/20 at 08:53; Status DC Apixaban (Eliquis) 5 mg BID PO Last administered on 05/09/20at 08:36; Start 05/08/20 at 21:00 Atorvastatin Calcium (Lipitor) 10 mg QHS PO Last administered on 05/08/20at 22:13; Start 05/08/20 at 21:00 Metoprolol Tartrate (Lopressor) 25 mg BID PO Last administered on 05/09/20at 08:36; Start 05/08/20 at 21:00 Sodium Chloride (Normal Saline Flush) 3 ml QSHIFT PRN IV AFTER MEDS AND BLOOD DRAWS; Start 05/08/20 at 13:45 Sodium Chloride 1,000 ml @ 100 mls/hr Q10H IV Last administered on 05/08/20at 22:17; Start 05/08/20 at 13:35 Ondansetron HCl (Zofran) 4 mg PRN Q4HRS PRN IV NAUSEA/VOMITING; Start 05/08/20 at 13:45 Acetaminophen (Tylenol) 650 mg PRN Q4HRS PRN PO TEMP OVER 100.4F OR MILD PAIN; Start 05/08/20 at 13:45 Acetaminophen (Tylenol Supp) 650 mg PRN Q4HRS PRN [place] TEMP OVER 100.4F OR MILD PAIN; Start 05/08/20 at 13:45 Sodium Monofluorophosphate (Fleet Adult) 133 ml PRN DAILY PRN [place] CONSTIPATION; Start 05/08/20 at 13:45 Docusate Sodium (Colace) 100 mg PRN BID PRN PO HARD STOOLS; Start 05/08/20 at 13:45 Albuterol/ Ipratropium (Duoneb) 3 ml Q4HRS NEB ; Start 05/08/20 at 16:00 Guaifenesin (Robitussin) 200 mg PRN Q4HRS PRN PO COUGH; Start 05/08/20 at 13:45 Ceftriaxone Sodium (Rocephin) 1 gm DAILY07 IVP Last administered on 05/09/20at 06:58; Start 05/08/20 at 15:00 Pantoprazole Sodium (PROTONIX VIAL for IV PUSH) 40 mg DAILYAC IVP Last administered on 05/09/20at 06:58; Start 05/08/20 at 17:00 Hydralazine HCl (Apresoline Inj) 10 mg PRN Q4HRS PRN IVP ELEVATED BP, SEE COMMENTS; Start 05/08/20 at 18:45 Diltiazem HCl (Cardizem 24hr Cd) 240 mg DAILY PO ; Start 05/09/20 at 09:00 Active Scripts Active Diltiazem 24Hr Cd (Diltiazem HCl) 240 Mg Cap.er.24h 240 Mg PO DAILY 30 Days Metoprolol Tartrate 25 Mg Tablet 25 Mg PO BID 30 Days Atorvastatin Calcium 10 Mg Tablet 10 Mg PO QHS 30 Days Eliquis (Apixaban) 5 Mg Tablet 5 Mg PO BID 30 Days Clonazepam 1 Mg Tablet 1 Tab PO BID 30 Days Ambien (Zolpidem Tartrate) 5 Mg Tablet 1 Tab PO QHS do NOT take within 3 hours of Clonazepam/Klonopin Zoloft (Sertraline Hcl) 100 Mg Tablet 1.5 Tab PO DAILY Gabapentin (Gabapentin) 300 Mg Capsule 300 Mg PO BID 30 Days Vitals/I & O Vital Sign - Last 24 Hours 05/08/20 05/08/20 05/08/20 05/08/20 10:13 10:43 11:14 11:54 Pulse 145 116 155 140 B/P (MAP) 149/83 (105) 144/97 (113) 120/67 (84) 133/98 (110) Pulse Ox 97 97 97 96 O2 Delivery Room Air Room Air Room Air Room Air 05/08/20 05/08/20 05/08/20 05/08/20 11:57 12:34 12:36 12:54 Pulse 154 126 162 134 B/P (MAP) 133/98 120/91 (101) 120/91 138/105 (116) Pulse Ox 95 95 O2 Delivery Room Air Room Air 05/08/20 05/08/20 05/08/20 05/08/20 13:24 13:36 13:41 13:46 Pulse 144 148 118 136 B/P (MAP) 134/96 (109) 146/93 (110) 138/67 (90) 150/104 (119) Pulse Ox 96 98 97 95 O2 Delivery Room Air Room Air Room Air Room Air 05/08/20 05/08/20 05/08/20 05/08/20 13:51 13:56 14:01 14:06 Pulse 144 150 134 138 B/P (MAP) 171/106 (127) 169/97 (121) 148/72 (97) 167/95 (119) Pulse Ox 96 95 95 96 O2 Delivery Room Air Room Air Room Air Room Air 05/08/20 05/08/20 05/08/20 05/08/20 14:11 14:16 14:21 14:26 Pulse 117 136 132 134 B/P (MAP) 134/88 (103) 153/102 (119) 152/78 (102) 129/93 (105) Pulse Ox 96 96 94 95 O2 Delivery Room Air Room Air Room Air Room Air 05/08/20 05/08/20 05/08/20 05/08/20 14:31 14:36 14:41 14:46 Pulse 126 134 128 136 B/P (MAP) 149/85 (106) 130/84 (99) 116/89 (98) 122/100 (107) Pulse Ox 94 96 95 95 O2 Delivery Room Air Room Air Room Air Room Air 05/08/20 05/08/20 05/08/20 05/08/20 14:51 14:56 15:01 15:06 Pulse 122 128 134 124 B/P (MAP) 116/99 (105) 177/76 (109) 116/65 (82) 119/70 (86) Pulse Ox 96 95 96 95 O2 Delivery Room Air Room Air Room Air Room Air 05/08/20 05/08/20 05/08/20 05/08/20 15:45 15:55 16:00 17:00 Temp 98.6 98.6 Pulse 120 Resp 20 18 22 B/P (MAP) 124/58 (80) 151/104 (120) 161/93 (115) Pulse Ox 96 O2 Delivery Room Air Room Air Room Air Room Air 05/08/20 05/08/20 05/08/20 05/08/20 19:00 19:45 20:00 20:45 Temp 98.1 98.1 Pulse 112 104 108 Resp 19 B/P (MAP) 114/62 (79) 125/86 (99) 123/92 (102) Pulse Ox 97 O2 Delivery Room Air Room Air 05/08/20 05/08/20 05/08/20 05/09/20 21:45 22:13 22:45 00:44 Pulse 100 112 94 84 B/P (MAP) 121/56 (77) 114/62 109/77 (88) 110/59 (76) 05/09/20 05/09/20 05/09/20 05/09/20 01:44 02:53 03:44 05:44 Temp 97.9 97.9 Pulse 90 90 83 81 Resp 19 B/P (MAP) 111/63 (79) 103/71 (82) 117/73 (88) 139/74 (95) O2 Delivery Room Air 05/09/20 05/09/20 07:00 08:36 Temp 98.1 98.1 Pulse 96 96 Resp 20 B/P (MAP) 130/76 (94) 130/76 Pulse Ox 96 O2 Delivery Room Air Intake and Output 05/08/20 05/08/20 05/09/20 15:00 23:00 07:00 Intake Total 1000 ml 1100 ml 200 ml Output Total 0 ml Balance 1000 ml 1100 ml 200 ml Justicifation of Admission Dx: Justifications for Admission: Justification of Admission Dx: Yes VIR[place]IA NEFF MD May 09, 2020 09:40
[2020-05-09 10:36] LABS: BARBITURATES NEG (NEG); BENZODIAZEPINES NEG (NEG); CANNABINOIDS POS (NEG); COCAINE NEG (NEG); METHADONE NEG (NEG); OPIATES NEG (NEG); PHENCYCLIDINE NEG (NEG)
[2020-05-09 10:37] LABS: AMPHETAMINE/METHAMPHETAMINE NEG (NEG)
--- NOTE | 2020-05-09 10:54 | PDOC ---
MELANIA [employer] 05/09/20 1054: CARDIO Progress Notes Date and Time Date of Service 05/09/2020 Time of Evaluation 1000 Subjective Subjective: No Chest Pain, No shortness of breath, No Palpitations Vitals Vitals Vital Signs Date Time Temp Pulse Resp B/P (MAP) Pulse Ox O2 Delivery O2 Flow Rate FiO2 05/09/20 10:45 91 133/84 05/09/20 07:40 Room Air 05/09/20 07:00 98.1 20 96 98.1 Weight Weight [ ] Input and Output Intake and Output Intake and Output 05/09/20 07:00 Intake Total 2300 ml Output Total 0 ml Balance 2300 ml Intake Oral 300 ml IV Total 2000 ml Output Emesis 0 ml # Voids 4 Laboratory Labs Laboratory Tests Test 05/08/20 11:20 05/08/20 12:00 05/09/20 04:30 05/09/20 10:00 White Blood Count 7.8 x10^3/uL (4.0-11.0) Red Blood Count 4.44 x10^6/uL (3.50-5.40) Hemoglobin 15.1 g/dL (12.0-15.5) Hematocrit 45.4 % (36.0-47.0) Mean Corpuscular Volume 102 fL (79-100) Mean Corpuscular Hemoglobin 34 pg (25-35) Mean Corpuscular Hemoglobin Concent 33 g/dL (31-37) Red Cell Distribution Width 14.9 % (11.5-14.5) Platelet Count 227 x10^3/uL (140-400) Neutrophils (%) (Auto) 62 % (31-73) Lymphocytes (%) (Auto) 28 % (24-48) Monocytes (%) (Auto) 10 % (0-9) Eosinophils (%) (Auto) 1 % (0-3) Basophils (%) (Auto) 0 % (0-3) Neutrophils # (Auto) 4.8 x10^3/uL (1.8-7.7) Lymphocytes # (Auto) 2.2 x10^3/uL (1.0-4.8) Monocytes # (Auto) 0.8 x10^3/uL (0.0-1.1) Eosinophils # (Auto) 0.1 x10^3/uL (0.0-0.7) Basophils # (Auto) 0.0 x10^3/uL (0.0-0.2) Prothrombin Time 14.6 SEC (11.7-14.0) Prothromb Time International Ratio 1.2 (0.8-1.1) Sodium Level 140 mmol/L (136-145) Potassium Level 4.0 mmol/L (3.5-5.1) Chloride Level 105 mmol/L (98-107) Carbon Dioxide Level 28 mmol/L (21-32) Anion Gap 7 (6-14) Blood Urea Nitrogen 5 mg/dL (7-20) Creatinine 0.6 mg/dL (0.6-1.0) Estimated GFR (Cockcroft-Gault) 100.0 BUN/Creatinine Ratio 8 (6-20) Glucose Level 112 mg/dL (70-99) Calcium Level 9.1 mg/dL (8.5-10.1) Iron Level 49 ug/dL (50-170) Total Iron Binding Capacity 141 ug/dL (250-450) Iron Saturation 35 % (15-34) Total Bilirubin 0.7 mg/dL (0.2-1.0) 0.6 mg/dL (0.2-1.0) Aspartate Amino Transf (AST/SGOT) 53 U/L (15-37) 45 U/L (15-37) Alanine Aminotransferase (ALT/SGPT) 36 U/L (14-59) 32 U/L (14-59) Alkaline Phosphatase 154 U/L (46-116) 139 U/L (46-116) UK-Htm-R-Type Natriuretic Peptide 2117 pg/mL (0-124) Total Protein 7.0 g/dL (6.4-8.2) 6.6 g/dL (6.4-8.2) Albumin 2.9 g/dL (3.4-5.0) 2.8 g/dL (3.4-5.0) Albumin/Globulin Ratio 0.7 (1.0-1.7) Lipase 74 U/L (73-393) Thyroid Stimulating Hormone (TSH) 1.958 uIU/mL (0.358-3.74) Urine Collection Type U cath Urine Color Yellow Urine Clarity Clear Urine pH 7.5 (<5.0-8.0) Urine Specific [place] 1.015 (1.000-1.030) Urine Protein Negative mg/dL (NEG-TRACE) Urine Glucose (UA) Negative mg/dL (NEG) Urine Ketones (Stick) Negative mg/dL (NEG) Urine Blood Trace (NEG) Urine Nitrite Positive (NEG) Urine Bilirubin Negative (NEG) Urine Urobilinogen Dipstick 1.0 mg/dL (0.2 mg/dL) Urine Leukocyte Esterase Large (NEG) Urine RBC 1-2 /HPF (0-2) Urine WBC 11-20 /HPF (0-4) Urine Squamous Epithelial Cells Mod /LPF Urine Bacteria Many /HPF (0-FEW) Urine Hyaline Casts Few /HPF Urine Mucus Slight /LPF Direct Bilirubin 0.3 mg/dL (0.0-0.2) Vitamin B12 Level 649 pg/mL (247-911) Urine Opiates Screen Neg (NEG) Urine Methadone Screen Neg (NEG) Urine Barbiturates Neg (NEG) Urine Phencyclidine Screen Neg (NEG) Urine Amphetamine/Methamphetamine Neg (NEG) Urine Benzodiazepines Screen Neg (NEG) Urine Cocaine Screen Neg (NEG) Urine Cannabinoids Screen Pos (NEG) Urine Ethyl Alcohol Neg (NEG) Physical Exam HEENT: Neck Supple W Full Motion Chest: Symmetric LUNGS: Other (diminished) Heart: irregularly irregular (AFIB) Abdomen: Other (obese) Extremities: No Edema Neurology: alert, oriented, follow commands Assessment Assessment 1. AFIB RVR: persistent,due to missed meds now rate controlled after resuming meds 2. Abdominal pain/vomiting/diarrhea: imaging noted with GB sludge. GI consulted 3. COPD with tobaccoism: stable 4. Morbid obesity with suspected AYAN 5. Marijuana use 6. Valvular insufficiency: mod AI, mild to mod MR 7. HLP 8. UTI: per PCP 9. Recent traumatic mechanical fall: syncope vs rolled out of bed. on 04/17/2020 and sustained a closed acute nondisplaced transverse fracture of the left humeral neck and acute mildly comminuted fracture of the greater tuberosity without significant displacement, no surgery warranted seen at [facility] evaluated by ortho 04/17/2020 and placed on immobilizer. And and again in ED [facility] on 05/03/2020 due to pain and intolerance to immobilizer. Will defer to PCP 10. HTN urgency: better 11. PUI: now positive for ageusia and GI symptoms and staying in hotel Recommendations 1. Test for covid. DC cardizem drip and start on home cardizem CD. Continue PO metoprolol. Eliquis for stroke prevention 2. 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 Hold TTE for now until Covid is ruled out. 3. Will need outpt AYAN 4. Reinforced smoking cessation and marijuana cessation 5. Will consider for outpt stress test for further risk stratification if none 6. Discussed compliance. SS consult Justicifation of Admission Dx: Justifications for Admission: Justification of Admission Dx: Yes YOLIS INIGUEZ MD 05/09/20 1548: CARDIO Progress Notes Assessment Assessment Patient seen and examined. Agree with MANA[employer]'s assessment and plan. Atrial fibrillation rate much better controlled. Continue current medications including Eliquis for stroke prophylaxis. Continue management of N/V/diarrhea/abdominal pain per GI team MELANIA MOORE APRN May 09, 2020 10:54 YOLIS INIGUEZ MD May 09, 2020 15:48
--- NOTE | 2020-05-09 10:59 | PDOC ---
Date of Service: DATE: 05/09/20 TIME: 10:52 Subjective: Subjective: Ate a little. No abd pain. Objective: Objective: D/w nurse - no n/v, no abd pain - pt reports unable to taste food - wondering about checking for COVID-19. Vital Signs: Vital Signs Date Time Temp Pulse Resp B/P (MAP) Pulse Ox O2 Delivery O2 Flow Rate FiO2 05/09/20 10:45 91 133/84 05/09/20 07:40 Room Air 05/09/20 07:00 98.1 20 96 98.1 Labs: Laboratory Tests Test 05/08/20 11:20 05/08/20 12:00 05/09/20 04:30 05/09/20 10:00 White Blood Count 7.8 x10^3/uL Red Blood Count 4.44 x10^6/uL Hemoglobin 15.1 g/dL Hematocrit 45.4 % Mean Corpuscular Volume 102 fL Mean Corpuscular Hemoglobin 34 pg Mean Corpuscular Hemoglobin Concent 33 g/dL Red Cell Distribution Width 14.9 % Platelet Count 227 x10^3/uL Neutrophils (%) (Auto) 62 % Lymphocytes (%) (Auto) 28 % Monocytes (%) (Auto) 10 % Eosinophils (%) (Auto) 1 % Basophils (%) (Auto) 0 % Neutrophils # (Auto) 4.8 x10^3/uL Lymphocytes # (Auto) 2.2 x10^3/uL Monocytes # (Auto) 0.8 x10^3/uL Eosinophils # (Auto) 0.1 x10^3/uL Basophils # (Auto) 0.0 x10^3/uL Prothrombin Time 14.6 SEC Prothromb Time International Ratio 1.2 Sodium Level 140 mmol/L Potassium Level 4.0 mmol/L Chloride Level 105 mmol/L Carbon Dioxide Level 28 mmol/L Anion Gap 7 Blood Urea Nitrogen 5 mg/dL Creatinine 0.6 mg/dL Estimated GFR (Cockcroft-Gault) 100.0 BUN/Creatinine Ratio 8 Glucose Level 112 mg/dL Calcium Level 9.1 mg/dL Iron Level 49 ug/dL Total Iron Binding Capacity 141 ug/dL Iron Saturation 35 % Total Bilirubin 0.7 mg/dL 0.6 mg/dL Aspartate Amino Transf (AST/SGOT) 53 U/L 45 U/L Alanine Aminotransferase (ALT/SGPT) 36 U/L 32 U/L Alkaline Phosphatase 154 U/L 139 U/L [id number]-Type Natriuretic Peptide 2117 pg/mL Total Protein 7.0 g/dL 6.6 g/dL Albumin 2.9 g/dL 2.8 g/dL Albumin/Globulin Ratio 0.7 Lipase 74 U/L Thyroid Stimulating Hormone (TSH) 1.958 uIU/mL Urine Collection Type U cath Urine Color Yellow Urine Clarity Clear Urine pH 7.5 Urine Specific [place] 1.015 Urine Protein Negative mg/dL Urine Glucose (UA) Negative mg/dL Urine Ketones (Stick) Negative mg/dL Urine Blood Trace Urine Nitrite Positive Urine Bilirubin Negative Urine Urobilinogen Dipstick 1.0 mg/dL Urine Leukocyte Esterase Large Urine RBC 1-2 /HPF Urine WBC 11-20 /HPF Urine Squamous Epithelial Cells Mod /LPF Urine Bacteria Many /HPF Urine Hyaline Casts Few /HPF Urine Mucus Slight /LPF Direct Bilirubin 0.3 mg/dL Vitamin B12 Level 649 pg/mL Urine Opiates Screen Neg Urine Methadone Screen Neg Urine Barbiturates Neg Urine Phencyclidine Screen Neg Urine Amphetamine/Methamphetamine Neg Urine Benzodiazepines Screen Neg Urine Cocaine Screen Neg Urine Cannabinoids Screen Pos Urine Ethyl Alcohol Neg PE: GEN: appears chronically ill LUNGS: diminished HEART: irregular ABD: soft, non-tender NEURO/PSYCH: A & O 3 A/P: A Fib, ?UTI, recent falls N/v, decreased appetite, weight loss Macrocytosis - B12 normal Elevated AST and Alk Phos - better GERD - on PPI +cannabinoids R/o COVID-19 -- Await COVID testing w/ lack of taste. PO PPI since eating some. Eventually needs EGD and colonoscopy (can do outpt). Justicifation of Admission Dx: Justifications for Admission: Justification of Admission Dx: Yes [place] May 09, 2020 10:59
[2020-05-09] MEDS ORDERED: ALBUTEROL SULFATE 2.5 MG/3 ML NEBU. NEB PRN (11:00)
--- NOTE | 2020-05-09 11:35 | NUR ---
Pt transferred up from [facility] due to PUI status. COVID swab sent from [facility]. Admitted to room 664.
--- NOTE | 2020-05-09 11:50 | NUR ---
reviewed charting completed by orienting RNLatrice willis with assessment. Patient now transferred from 2nd floor to 6th floor as a PUI
--- NOTE | 2020-05-09 13:05 | NUR ---
SS following for discharge planning. SS reviewed pt chart and discussed with pt RN. Pt currently living in hotel. Pt was evicted from home. Pt currently on room air but reports having vomiting, nausea, and cannot taste anything. Pt has had syncope episodes. COVID19 test pending. SS will continue to follow for discharge planning.
[2020-05-09] MEDS: HYDROcodone/APAP 5/325MG 1 TAB TABLET PO PRN (17:51)
[2020-05-09] MEDS: ATORVASTATIN CALCIUM 10 MG TABLET. PO SCH (21:31)
[2020-05-10 03:17] VITALS: BP 151/85
[2020-05-10 07:00] VITALS: BP 168/91
[2020-05-10] MEDS: APIXABAN 5 MG TABLET. PO SCH ×2 (07:42→21:04)
[2020-05-10] MEDS: IV NORMAL SALINE 1000ML BAG 1,000 ML IV SCH ×2 (07:42→15:35)
[2020-05-10] MEDS: METOPROLOL TART IMMED RELEASE 25 MG TABLET. PO SCH ×2 (07:42→21:05)
[2020-05-10] MEDS: PANTOPRAZOLE 40 MG TABLET.DR. PO SCH (07:42)
[2020-05-10] MEDS: cefTRIAXone IV Push 1 GM VIAL. IVP SCH (09:03)
--- NOTE | 2020-05-10 10:19 | PDOC ---
PROGRESS NOTES Date of Service: DATE: 05/10/20 TIME: 10:16 Subjective Subjective Patient complained of loss of taste yesterday. COVID test pending. Objective Objective Vital Signs Date Time Temp Pulse Resp B/P (MAP) Pulse Ox O2 Delivery O2 Flow Rate FiO2 05/10/20 07:43 80 151/85 05/10/20 07:00 98.2 22 96 Room Air 98.2 Intake and Output 05/10/20 07:00 Intake Total 820 ml Balance 820 ml Intake Oral 820 ml # Voids 1 Physical Exam Abdomen: Soft, Other (obese) Heart: Other (AFIB RVR) Extremities: No cyanosis, No edema General: Alert, Oriented X3, Cooperative, No acute distress HEENT: Atraumatic, Mucous membr. moist/pink Lungs: Clear to auscultation, Normal air movement MUSCULOSKELETAL: Osteoarthritic changes both hands Neuro: Normal speech, Sensation intact Psych/Mental Status: Mental status NL, Mood NL Skin: Other (periorbital ecchymoses) Assessment Assessment 1. AFIB RVR: persistent,due to missed meds now rate controlled after resuming me ds. Continue Eliquis for stroke prophylaxis. Check 2D echo if her COVID test comes back negative. 2. Abdominal pain/vomiting/diarrhea: imaging noted with GB sludge. GI following 3. COPD with tobaccoism: stable 4. Morbid obesity with suspected AYAN 5. Marijuana use 6. Valvular insufficiency: mod AI, mild to mod MR 7. HLP, continue statins 8. UTI: per PCP 9. Accelerated hypertension. Better controlled. Continue current medical regimen. 10. PUI: now positive for ageusia and GI symptoms and staying in hotel. COVID test pending. Plan Plan of Care Problems Medical Problems: (1) Atrial fibrillation with RVR Status: Acute Comment Review of Relevant I have reviewed the following items katie (where applicable) has been applied. Labs Microbiology 05/08/20 Blood Culture - Preliminary, Resulted NO GROWTH AFTER 1 DAY Medications Current Medications Acetaminophen/ Hydrocodone Bitart (Lortab 5/325) 1 tab PRN Q4HRS PRN PO MODERATE TO SEVERE PAIN Last administered on 05/09/20at 17:51; Start 05/09/20 at 17:45 Albuterol Sulfate (Ventolin Neb Soln) 2.5 mg PRN Q4HRS PRN NEB WHEEZING; Start 05/09/20 at 11:00 Pantoprazole Sodium (Protonix) 40 mg DAILYAC PO Last administered on 05/10/20at 07:42; Start 05/10/20 at 07:30 Vitals/I & O Vital Sign - Last 24 Hours 05/09/20 05/09/20 05/09/20 05/09/20 10:45 11:00 15:00 17:51 Temp 98.6 98.2 98.6 98.2 Pulse 91 91 95 Resp 20 18 18 B/P (MAP) 133/84 133/84 (100) 134/76 (95) Pulse Ox 96 95 O2 Delivery Room Air Room Air Room Air 05/09/20 05/09/20 05/09/20 05/09/20 19:00 19:00 20:00 20:18 Temp 98.4 98.4 Pulse 81 88 Resp 22 B/P (MAP) 153/81 (105) O2 Delivery Room Air Room Air Room Air 05/09/20 05/09/20 05/10/20 05/10/20 21:31 23:11 03:17 07:00 Temp 98.2 97.7 98.2 98.2 97.7 98.2 Pulse 88 79 80 87 Resp 16 20 22 B/P (MAP) 153/81 148/80 (102) 151/85 (107) 168/91 (116) Pulse Ox 94 96 96 O2 Delivery Room Air Room Air Room Air 05/10/20 05/10/20 07:42 07:43 Pulse 80 80 B/P (MAP) 151/85 151/85 Intake and Output 0 05/09/20 05/09/20 05/10/20 15:00 23:00 07:00 Intake Total 200 ml 100 ml 520 ml Balance 200 ml 100 ml 520 ml YOLIS INIGUEZ MD May 10, 2020 10:19
[2020-05-10 11:00] VITALS: BP 144/77
--- NOTE | 2020-05-10 11:26 | PDOC ---
[employer] PROGRESS NOTE Date of Service DOS: DATE: 05/10/20 TIME: 11:26 Chief Complaint Chief Complaint A/P: AFIB RVR COPD/moderate pulmonary HTN with continued tobaccoism: ECHO 2018 , Mild to moderate mitral regurgitation. Trace tricuspid regurgitation.moderate pulmonary hypertension. PA pressure was estimated at 56 mmHg. Chronic diastolic CHF: AYAN - needs outpt sleep study Macrocytosis: outpt f/u with pcp - B12 ok Morbid obesity Marijuana use Valvular insufficiency: mod AI, mild to mod MR Subclinical hypothyroidism HLD UTI Complicated social stressors - HX NONCOMPLIANCE SEC FINANCIAL issues nausea and vomiting Gallbladder appears slightly distended without obvious intraluminal abnormality by CT, Fall with head injury and memory issues - will CT head to r/o subdural hematoma PLAN Consult cardiology IV CARDIZEM DRIP ECHO iv zofran restart eliquis iv rocephin ABD SONO stop thc use 37 MIN pt exam, chart review, > 50% of time spent with exam, chart review, pt care coordination History of Present Illness History of Present Illness Ms Lee is a 64 yo female w/ PMHx AFIB, CHF, valvular insufficiency mod AI, MR, pulmonary HTN, COPD, anxiety with depression, OA, fibromyalgia who was admitted for complains of weakness, and GI symptoms. Reports that she has been having nausea and vomiting spells in the last 3 weeks. Sometimes the color is greenish. No fever or chills. Her appetite has been off and started having watery stools about 2 days ago. Also with generalized abdominal discomfort. Her stool is not bloody and no hematemesis. She does not suspect any food poisoning and no recent travels. She took some prilosec but her GI symptoms stayed. She finally came to the hospital due to increasing weakness. She has not taken her medications since Tuesday due to her GI symptoms. No recent falls or injury. Denies any SOA or chest pain. She lives with her sister and her sister does not have any GI symptoms. She has AFIB hx and currently has AFIB RVR. 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 recently. Her cousin also mentioned to RN that she may not have been taking her meds longer that just last Tuesday. She also notes that due to her short stature she was attempting to climb into the hotel bed she has been living in and fell and struck her head on a chair recently did not lose consciousness. Vitals/I&O Vitals/I&O: Vital Signs Date Time Temp Pulse Resp B/P (MAP) Pulse Ox O2 Delivery O2 Flow Rate FiO2 05/10/20 07:43 80 151/85 05/10/20 07:00 98.2 22 96 Room Air 98.2 I & O 05/09/20 05/09/20 05/10/20 15:00 23:00 07:00 Intake Total 200 ml 100 ml 520 ml Balance 200 ml 100 ml 520 ml Physical Exam General: Alert, Oriented X3, Cooperative, No acute distress Heart: Other (AFIB RVR) Lungs: Clear, Other Abdomen: Soft, Other (obese) Extremities: No cyanosis, No edema Skin: Other (periorbital ecchymoses) Assessment and Plan Assessmemt and Plan Problems Medical Problems: (1) Atrial fibrillation with RVR Status: Acute Comment Review of Relevant I have reviewed the following items katie (where applicable) has been applied. Medications: Current Medications Medications (Trade) Dose Ordered Sig/Steffen Route PRN Reason Start Time Stop Time Status Last Admin Dose Admin Pantoprazole Sodium (Protonix) 40 mg DAILYAC PO 05/10/20 07:30 05/10/20 07:42 Acetaminophen/ Hydrocodone Bitart (Lortab 5/325) 1 tab PRN Q4HRS PRN PO MODERATE TO SEVERE PAIN 05/09/20 17:45 05/09/20 17:51 Justicifation of Admission Dx: Justifications for Admission: Justification of Admission Dx: Yes LORE CORTEZ MD May 10, 2020 11:26
[2020-05-10 13:38] LABS: ALBUMIN/GLOBULIN RATIO 0.8 (1.0-1.7); CALCIUM 8.8 mg/dL (8.5-10.1); CREATININE 0.5 mg/dL (0.6-1.0); GFR 123.4; MAGNESIUM 1.5 mg/dL (1.8-2.4); POTASSIUM 3.1 mmol/L (3.5-5.1); TOTAL BILIRUBIN 0.6 mg/dL (0.2-1.0)
[2020-05-10] MEDS: ANTI-COAG MONITOR BY PHARMACY. MC PRN (14:41)
[2020-05-10 15:00] VITALS: BP 137/77
[2020-05-10] MEDS ORDERED: POTASSIUM CHLORIDE 20 MEQ TABLET.ER. PO ONE (15:45)
[2020-05-10] MEDS ORDERED: MAGNESIUM SULFATE 4GM 100 ML IV ONE (15:45)
[2020-05-10 19:00] VITALS: BP 122/97
[2020-05-10] MEDS ORDERED: ATOR20TA58 PO (19:24)
[2020-05-10] MEDS ORDERED: DILT120T3 PO (19:24)
[2020-05-10] MEDS ORDERED: SERT100T8 PO (19:24)
[2020-05-10] MEDS ORDERED: GABA300C9 PO (19:24)
[2020-05-10] MEDS ORDERED: ZOLP5TAB5 PO (19:24)
[2020-05-10] MEDS ORDERED: CLON1TAB12 PO (19:24)
[2020-05-10] MEDS ORDERED: ZOLPIDEM 5 MG TABLET. PO PRN (19:30)
[2020-05-10] MEDS: GABAPENTIN 300 MG CAPSULE. PO SCH ×2 (21:00→21:04)
[2020-05-10] MEDS: ATORVASTATIN CALCIUM 10 MG TABLET. PO SCH (21:04)
[2020-05-10 23:06] VITALS: BP 109/74
[2020-05-11 03:50] VITALS: BP 124/58
[2020-05-11 04:17] LABS: CALCIUM 8.8 mg/dL (8.5-10.1); CREATININE 0.5 mg/dL (0.6-1.0); GFR 123.4; MAGNESIUM 2.2 mg/dL (1.8-2.4); POTASSIUM 3.2 mmol/L (3.5-5.1)
[2020-05-11 07:00] VITALS: BP 168/107
[2020-05-11] MEDS: APIXABAN 5 MG TABLET. PO SCH (07:54)
[2020-05-11] MEDS: GABAPENTIN 300 MG CAPSULE. PO SCH (07:55)
[2020-05-11] MEDS: PANTOPRAZOLE 40 MG TABLET.DR. PO SCH (07:55)
[2020-05-11] MEDS: METOPROLOL TART IMMED RELEASE 25 MG TABLET. PO SCH (07:56)
--- NOTE | 2020-05-11 08:50 | RAD ---
CT HEAD WO CONTRAST History: Reason: Word finding difficulty. Fall with head injury prior to admission / Spl. Instructions: / History: Comparison: None. Technique: Noncontrast CT imaging was performed of the head. Exposure: One or more of the following individualized dose reduction techniques were utilized for this examination: 1. Automated exposure control 2. Adjustment of the mA and/or kV according to patient size 3. Use of iterative reconstruction technique. Findings: No intracranial hemorrhage. No mass effect. No hydrocephalus. Chronic right frontal cortical and subcortical infarct. Mild brain parenchymal volume loss. Moderate additional foci of decreased attenuation within them stick white matter, most often due to chronic microvascular ischemia. Intracranial atheromatous calcifications. Imaged orbits are unremarkable. Imaged paranasal sinuses and mastoid air cells are clear. No acute calvarial fracture. Impression: 1. No acute intracranial abnormality. 2. Chronic right frontal infarct. Electronically signed by: Madan Jauregui DO (05/11/2020 8:47 AM) [facility]
[2020-05-11] MEDS ORDERED: SERTRALINE 50 MG TABLET. PO SCH (09:00)
[2020-05-11] MEDS ORDERED: cefTRIAXone IV Push 1 GM VIAL. IVP SCH (09:00)
[2020-05-11 11:00] VITALS: BP 120/56
[2020-05-11] MEDS: ANTI-COAG MONITOR BY PHARMACY. MC PRN (12:32)
[2020-05-11] MEDS ORDERED: POTASSIUM CHLORIDE 20 MEQ TABLET.ER. PO ONE (12:45)
[2020-05-11] MEDS: POTASSIUM CHLORIDE 10MEQ 100 ML IV SCH ×2 (13:07→14:34)
--- NOTE | 2020-05-11 13:22 | PDOC ---
[employer] PROGRESS NOTE Date of Service DOS: DATE: 05/11/20 TIME: 12:46 Chief Complaint Chief Complaint A/P: AFIB RVR COPD/moderate pulmonary HTN with continued tobaccoism: ECHO 2018 , Mild to moderate mitral regurgitation. Trace tricuspid regurgitation.moderate pulmonary hypertension. PA pressure was estimated at 56 mmHg. Chronic diastolic CHF: AYAN - needs outpt sleep study Macrocytosis: outpt f/u with pcp - B12 ok Morbid obesity Marijuana use Valvular insufficiency: mod AI, mild to mod MR Subclinical hypothyroidism HLD UTI Complicated social stressors - HX NONCOMPLIANCE SEC FINANCIAL issues nausea and vomiting Gallbladder appears slightly distended without obvious intraluminal abnormality by CT, Fall with head injury and memory issues - will CT head to r/o subdural hematoma PLAN Consult cardiology IV CARDIZEM DRIP ECHO iv zofran restart eliquis iv rocephin ABD SONO stop thc use 37 MIN pt exam, chart review, > 50% of time spent with exam, chart review, pt care coordination History of Present Illness History of Present Illness Ms Lee is a 64 yo female w/ PMHx AFIB, CHF, valvular insufficiency mod AI, MR, pulmonary HTN, COPD, anxiety with depression, OA, fibromyalgia who was admitted for complains of weakness, and GI symptoms. Reports that she has been having nausea and vomiting spells in the last 3 weeks. Sometimes the color is greenish. No fever or chills. Her appetite has been off and started having watery stools about 2 days ago. Also with generalized abdominal discomfort. Her stool is not bloody and no hematemesis. She does not suspect any food poisoning and no recent travels. She took some prilosec but her GI symptoms stayed. She finally came to the hospital due to increasing weakness. She has not taken her medications since Tuesday due to her GI symptoms. No recent falls or injury. Denies any SOA or chest pain. She lives with her sister and her sister does not have any GI symptoms. She has AFIB hx and currently has AFIB RVR. 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 Her cousin also mentioned to RN that she may not have been taking her meds longer that just last Tuesday. She also notes that due to her short stature she was attempting to climb into the hotel bed she has been living in and fell and struck her head on a chair recently did not lose consciousness. CT head showed chronic right frontal infarct. K3.2, Mag 2.4. She is breathing better today. Wishes to go home. COVID-19 testing returned negative Vitals/I&O Vitals/I&O: Vital Signs Date Time Temp Pulse Resp B/P (MAP) Pulse Ox O2 Delivery O2 Flow Rate FiO2 05/11/20 11:00 98.1 78 18 120/56 (77) 96 Room Air 98.1 I & O 05/10/20 05/10/20 05/11/20 15:00 23:00 07:00 Intake Total 100 ml 200 ml Output Total 0 ml Balance 100 ml 200 ml Physical Exam General: Alert, Oriented X3, Cooperative, No acute distress Heart: Other (AFIB RVR) Lungs: Clear, Other Abdomen: Soft, Other (obese) Extremities: No cyanosis, No edema Skin: Other (periorbital ecchymoses) Labs Labs: Laboratory Tests Test 05/11/20 03:30 Sodium Level 139 mmol/L (136-145) Potassium Level 3.2 mmol/L (3.5-5.1) Chloride Level 104 mmol/L (98-107) Carbon Dioxide Level 25 mmol/L (21-32) Anion Gap 10 (6-14) Blood Urea Nitrogen 8 mg/dL (7-20) Creatinine 0.5 mg/dL (0.6-1.0) Estimated GFR (Cockcroft-Gault) 123.4 Glucose Level 87 mg/dL (70-99) Calcium Level 8.8 mg/dL (8.5-10.1) Magnesium Level 2.2 mg/dL (1.8-2.4) Assessment and Plan Assessmemt and Plan Problems Medical Problems: (1) Atrial fibrillation with RVR Status: Acute Comment Review of Relevant I have reviewed the following items katie (where applicable) has been applied. Medications: Current Medications Medications (Trade) Dose Ordered Sig/Steffen Route PRN Reason Start Time Stop Time Status Last Admin Dose Admin Potassium Chloride (Klor-Con) 40 meq 1X ONCE PO 05/10/20 15:45 05/10/20 15:46 DC 05/10/20 16:07 Magnesium Sulfate 100 ml @ 25 mls/hr 1X ONCE IV 05/10/20 15:45 05/10/20 19:44 DC 05/10/20 16:07 Gabapentin (Neurontin) 300 mg BID PO 05/10/20 21:00 05/11/20 07:55 Zolpidem Tartrate (Ambien) 5 mg PRN QHS PRN PO INSOMNIA 05/10/20 19:30 05/10/20 21:05 Sertraline HCl (Zoloft) 150 mg DAILY PO 05/11/20 09:00 05/11/20 07:55 Ceftriaxone Sodium (Rocephin) 1 gm DAILY IVP 05/11/20 09:00 05/11/20 07:54 Justicifation of Admission Dx: Justifications for Admission: Justification of Admission Dx: Yes LORE CORTEZ MD May 11, 2020 13:22
--- NOTE | 2020-05-11 13:27 | PDOC3 ---
Discharge Summary Visit Information Date of Admission: May 08, 2020 Date of Discharge: May 11, 2020 Admitting Diagnosis: Afib with RVR Final Diagnosis Problems Medical Problems: (1) Atrial fibrillation with RVR Status: Acute Brief Hospital Course Allergies Allergies Coded Allergies Type Severity Reaction Last Updated Verified No Known Drug Allergies 01/24/18 No Vital Signs Vital Signs Date Time Temp Pulse Resp B/P (MAP) Pulse Ox O2 Delivery O2 Flow Rate FiO2 05/11/20 11:00 98.1 78 18 120/56 (77) 96 Room Air 98.1 Lab Results Laboratory Tests Test 05/10/20 12:30 05/11/20 03:30 Sodium Level 137 mmol/L (136-145) 139 mmol/L (136-145) Potassium Level 3.1 mmol/L (3.5-5.1) 3.2 mmol/L (3.5-5.1) Chloride Level 102 mmol/L (98-107) 104 mmol/L (98-107) Carbon Dioxide Level 24 mmol/L (21-32) 25 mmol/L (21-32) Anion Gap 11 (6-14) 10 (6-14) Blood Urea Nitrogen 8 mg/dL (7-20) 8 mg/dL (7-20) Creatinine 0.5 mg/dL (0.6-1.0) 0.5 mg/dL (0.6-1.0) Estimated GFR (Cockcroft-Gault) 123.4 123.4 BUN/Creatinine Ratio 16 (6-20) Glucose Level 99 mg/dL (70-99) 87 mg/dL (70-99) Calcium Level 8.8 mg/dL (8.5-10.1) 8.8 mg/dL (8.5-10.1) Magnesium Level 1.5 mg/dL (1.8-2.4) 2.2 mg/dL (1.8-2.4) Total Bilirubin 0.6 mg/dL (0.2-1.0) Aspartate Amino Transf (AST/SGOT) 44 U/L (15-37) Alanine Aminotransferase (ALT/SGPT) 28 U/L (14-59) Alkaline Phosphatase 143 U/L (46-116) Total Protein 7.0 g/dL (6.4-8.2) Albumin 3.0 g/dL (3.4-5.0) Albumin/Globulin Ratio 0.8 (1.0-1.7) Laboratory Tests Test 05/11/20 03:30 Sodium Level 139 mmol/L (136-145) Potassium Level 3.2 mmol/L (3.5-5.1) Chloride Level 104 mmol/L (98-107) Carbon Dioxide Level 25 mmol/L (21-32) Anion Gap 10 (6-14) Blood Urea Nitrogen 8 mg/dL (7-20) Creatinine 0.5 mg/dL (0.6-1.0) Estimated GFR (Cockcroft-Gault) 123.4 Glucose Level 87 mg/dL (70-99) Calcium Level 8.8 mg/dL (8.5-10.1) Magnesium Level 2.2 mg/dL (1.8-2.4) Brief Hospital Course Ms Lee is a 64 yo female w/ PMHx AFIB, CHF, valvular insufficiency mod AI, MR, pulmonary HTN, COPD, anxiety with depression, OA, fibromyalgia who was admitted for complains of weakness, and GI symptoms. Reports that she has been having nausea and vomiting spells in the last 3 weeks. Sometimes the color is greenish. No fever or chills. Her appetite has been off and started having watery stools about 2 days ago. Also with generalized abdominal discomfort. Her stool is not bloody and no hematemesis. She does not suspect any food poisoning and no recent travels. She took some prilosec but her GI symptoms stayed. She finally came to the hospital due to increasing weakness. She has not taken her medications since Tuesday due to her GI symptoms. No recent falls or injury. Denies any SOA or chest pain. She lives with her sister and her sister does not have any GI symptoms. She has AFIB hx and currently has AFIB RVR. 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 Her cousin also mentioned to RN that she may not have been taking her meds longer that just last Tuesday. She also notes that due to her short stature she was attempting to climb into the hotel bed she has been living in and fell and struck her head on a chair recently did not lose consciousness. CT head showed chronic right frontal infarct. K3.2, Mag 2.4. She is breathing better today. Wishes to go home. COVID-19 testing returned negative Consults: Cardiology and GI Problem list: AFIB RVR COPD/moderate pulmonary HTN with continued tobaccoism: ECHO 2018 , Mild to moderate mitral regurgitation. Trace tricuspid regurgitation.moderate pulmonary hypertension. PA pressure was estimated at 56 mmHg. Chronic diastolic CHF: AYAN - needs outpt sleep study Macrocytosis: outpt f/u with pcp - B12 ok Morbid obesity Marijuana use Valvular insufficiency: mod AI, mild to mod MR Subclinical hypothyroidism HLD UTI Complicated social stressors - HX NONCOMPLIANCE [employer] issues nausea and vomiting Gallbladder appears slightly distended without obvious intraluminal abnormality by CT, Fall with head injury and memory issues - CT head r/o subdural hematoma H/o Right frontal CVA - needs outpatient therapy. PLAN CARDIZEM ECHO iv zofran restart eliquis stop thc use 37 MIN pt exam, chart review, > 50% of time spent with exam, chart review, pt care coordination. D/c home with home health Discharge Information Condition at Discharge: Improved Follow Up: Weeks (1) Disposition/Orders: D/C to Home w/ HH Scheduled Apixaban (Eliquis) 5 Mg Tablet, 5 MG PO BID for 30 Days, #60 Ref 1 Prescribed by: SHASHANK CAPONE MD on 03/05/181301 Last Action: Continued on 05/08/201333 by VIRGINIA NEFF MD Atorvastatin Calcium (Atorvastatin Calcium) 10 Mg Tablet, 10 MG PO QHS for 30 Days, #30 Ref 1 Prescribed by: SHASHANK CAPONE MD on 03/05/18 1302 Last Action: Continued on 05/08/201333 by VIRGINIA NEFF MD Atorvastatin Calcium (Atorvastatin Calcium) 20 Mg Tablet, 20 MG PO QHS for HLD for 90 Days, #90 (Reported) Entered as Reported by: LORE CORTEZ MD on 05/10/201923 Last Action: New Order on 05/10/201923 by LORE CORTEZ MD Clonazepam (Clonazepam) 1 Mg Tablet, 1 TAB PO BID for 30 Days, #60 Ref 0 Prescribed by: SHASHANK CAPONE MD on 6/3/18 1302 Last Action: HELD on 05/08/201333 by VIRGINIA NEFF MD Diltiazem HCl (Diltiazem 24Hr Cd) 240 Mg Cap.er.24h, 240 MG PO DAILY for 30 Days, #30 Ref 1 Prescribed by: SHASHANK CAPONE MD on 03/05/181301 Last Action: Continued on 05/09/20851 by Diamante Quiles Diltiazem Hcl (Diltiazem Hcl Tablet) 120 Mg Tablet, 120 MG PO BID for Afib for 90 Days, #180 (Reported) Entered as Reported by: LORE CORTEZ MD on 05/10/201923 Last Action: New Order on 05/10/201923 by LORE CORTEZ MD Gabapentin (Gabapentin ) 300 Mg Capsule, 300 MG PO BID for 30 Days, #60 Ref 0 Prescribed by: SHASHANK CAPONE MD on 03/05/181301 Last Action: Continued on 05/10/201925 by LORE CORTEZ MD Gabapentin (Gabapentin) 300 Mg Capsule, 300 MG PO TID for neuropathic pain for 90 Days, #270 (Reported) Entered as Reported by: LORE CORTEZ MD on 05/10/201923 Last Action: New Order on 05/10/201923 by LORE CORTEZ MD Metoprolol Tartrate (Metoprolol Tartrate) 25 Mg Tablet, 25 MG PO BID for 30 Days, #60 Ref 1 Prescribed by: SHASHANK CAPONE MD on 03/05/181301 Last Action: Continued on 05/08/201333 by VIRGINIA NEFF MD Sertraline Hcl (Zoloft) 100 Mg Tablet, 1.5 TAB PO DAILY, #30 Ref 0 Prescribed by: SHASHANK CAPONE MD on 03/05/181301 Last Action: HELD on 05/08/201333 by VIRGINIA NEFF MD Sertraline Hcl (Sertraline Hcl) 100 Mg Tablet, 150 MG PO DAILY for Depression/Anxiety for 90 Days, #135 (Reported) Entered as Reported by: LORE CORTEZ MD on 05/10/201923 Last Action: Converted on 05/10/201925 by LORE CORTEZ MD Zolpidem Tartrate (Ambien) 5 Mg Tablet, 1 TAB PO QHS for INSOMNIA, #14 Ref 0 do NOT take within 3 hours of Clonazepam/Klonopin Prescribed by: SHASHANK CAPONE MD on 03/05/18 1302 Last Action: HELD on 05/08/201333 by VIRGINIA NEFF MD Scheduled PRN Clonazepam (Clonazepam) 1 Mg Tablet, 1 MG PO PRN BID PRN for ANXIETY / AGITATION for 30 Days, #60 (Reported) Entered as Reported by: LORE CORTEZ MD on 05/10/201923 Last Action: New Order on 05/10/201923 by LORE CORTEZ MD Zolpidem Tartrate (Zolpidem Tartrate) 5 Mg Tablet, 5 MG PO PRN QHS PRN for INSOMNIA for 30 Days, #30 (Reported) Entered as Reported by: LORE CORTEZ MD on 05/10/201923 Last Action: Continued on 05/10/201925 by LORE CORTEZ MD Justicifation of Admission Dx: Justifications for Admission: Justification of Admission Dx: Yes LORE CORTEZ MD May 11, 2020 13:27
--- NOTE | 2020-05-11 13:40 | PDOC ---
PROGRESS NOTES Date of Service: DATE: 05/11/20 TIME: 13:40 Subjective Subjective Denied any chest pain or dyspnea Objective Objective Vital Signs Date Time Temp Pulse Resp B/P (MAP) Pulse Ox O2 Delivery O2 Flow Rate FiO2 05/11/20 11:00 98.1 78 18 120/56 (77) 96 Room Air 98.1 Intake and Output 05/11/20 07:00 Intake Total 300 ml Output Total 0 ml Balance 300 ml Intake Oral 200 ml IV Total 100 ml Output Urine Total 0 ml # Voids 3 Physical Exam Abdomen: Soft, Other (obese) Heart: Other (AFIB RVR) Extremities: No cyanosis, No edema General: Alert, Oriented X3, Cooperative, No acute distress HEENT: Atraumatic, Mucous membr. moist/pink Lungs: Clear to auscultation, Normal air movement MUSCULOSKELETAL: Osteoarthritic changes both hands Neuro: Normal speech, Sensation intact Psych/Mental Status: Mental status NL, Mood NL Skin: Other (periorbital ecchymoses) Assessment Assessment 1. AFIB RVR: persistent,due to missed meds now rate controlled after resuming meds. Continue Eliquis for stroke prophylaxis. Plan 2D echo as an outpatient. 2. Abdominal pain/vomiting/diarrhea: imaging noted with GB sludge. GI following 3. COPD with tobaccoism: stable 4. Morbid obesity with suspected AYAN 5. Marijuana use 6. Valvular insufficiency: mod AI, mild to mod MR 7. HLP, continue statins 8. UTI: per PCP 9. Accelerated hypertension. Better controlled. Continue current medical regimen. 10. PUI: COVID test negative. Follow-up with our office in 1 month. Plan Plan of Care Problems Medical Problems: (1) Atrial fibrillation with RVR Status: Acute Comment Review of Relevant I have reviewed the following items katie (where applicable) has been applied. Labs Laboratory Tests Test 05/11/20 03:30 Sodium Level 139 mmol/L (136-145) Potassium Level 3.2 mmol/L (3.5-5.1) Chloride Level 104 mmol/L (98-107) Carbon Dioxide Level 25 mmol/L (21-32) Anion Gap 10 (6-14) Blood Urea Nitrogen 8 mg/dL (7-20) Creatinine 0.5 mg/dL (0.6-1.0) Estimated GFR (Cockcroft-Gault) 123.4 Glucose Level 87 mg/dL (70-99) Calcium Level 8.8 mg/dL (8.5-10.1) Magnesium Level 2.2 mg/dL (1.8-2.4) Microbiology 05/08/20 Blood Culture - Preliminary, Resulted NO GROWTH AFTER 2 DAYS Medications Current Medications Ceftriaxone Sodium (Rocephin) 1 gm DAILY IVP Last administered on 05/11/20 07:54; Start 05/11/20 at 09:00 Gabapentin (Neurontin) 300 mg BID PO Last administered on 05/11/20at 07:55; Start 05/10/20 at 21:00 Lactobacillus Rhamnosus (Culturelle) 1 cap BID PO ; Start 05/11/20 at 21:00 Magnesium Sulfate 100 ml @ 25 mls/hr 1X ONCE IV Last administered on 05/10/20at 16:07; Start 05/10/20 at 15:45; Stop 05/10/20 at 19:44; Status DC Potassium Chloride/Water 100 ml @ 100 mls/hr Q1H IV Last administered on 05/11/20at 13:07; Start 05/11/20 at 13:00; Stop 05/11/20 at 14:59 Potassium Chloride (Klor-Con) 40 meq 1X ONCE PO Last administered on 05/10/20at 16:07; Start 05/10/20 at 15:45; Stop 05/10/20 at 15:46; Status DC Potassium Chloride (Klor-Con) 40 meq 1X ONCE PO Last administered on 05/11/20at 12:58; Start 05/11/20 at 12:45; Stop 05/11/20 at 12:49; Status DC Sertraline HCl (Zoloft) 150 mg DAILY PO Last administered on 05/11/20at 07:55; Start 05/11/20 at 09:00 Zolpidem Tartrate (Ambien) 5 mg PRN QHS PRN PO INSOMNIA Last administered on 05/10/20at 21:05; Start 05/10/20 at 19:30 Vitals/I & O Vital Sign - Last 24 Hours 05/10/20 05/10/20 05/10/20 05/10/20 15:00 19:00 20:20 21:05 Temp 97.8 97.4 97.8 97.4 Pulse 94 87 87 Resp 20 18 B/P (MAP) 137/77 (97) 122/97 (105) 122/97 Pulse Ox 96 94 O2 Delivery Room Air Room Air Room Air 05/10/20 05/11/20 05/11/20 05/11/20 23:06 03:50 07:00 07:55 Temp 96.8 98.2 98.0 96.8 98.2 98.0 Pulse 88 76 87 76 Resp 18 18 18 B/P (MAP) 109/74 (86) 124/58 (80) 168/107 (127) 124/58 Pulse Ox 98 94 97 O2 Delivery Room Air Room Air Room Air 05/11/20 05/11/20 05/11/20 07:56 08:00 11:00 Temp 98.1 98.1 Pulse 86 78 Resp 18 B/P (MAP) 124/58 120/56 (77) Pulse Ox 96 O2 Delivery Room Air Room Air Intake and Output 05/10/20 05/10/20 05/11/20 15:00 23:00 07:00 Intake Total 100 ml 200 ml Output Total 0 ml Balance 100 ml 200 ml YOLIS INIGUEZ MD May 11, 2020 13:40
[2020-05-11] MEDS ORDERED: CLON1TAB12 PO (14:06)
[2020-05-11] MEDS ORDERED: APIX5TAB PO (14:06)
[2020-05-11] MEDS ORDERED: DILT240C33 PO (14:06)
[2020-05-11] MEDS ORDERED: POTA20TA4 PO (14:06)
[2020-05-11] MEDS ORDERED: CIME400T PO (14:06)
[2020-05-11] MEDS ORDERED: ATOR10TA60 PO (14:06)
[2020-05-11] MEDS ORDERED: SERT100T8 PO (14:06)
[2020-05-11] MEDS ORDERED: METO25TA4 PO (14:06)
[2020-05-11] MEDS ORDERED: GABA300C18 PO (14:06)
[2020-05-11 15:00] VITALS: BP 103/83
[2020-05-11] MEDS: HYDROcodone/APAP 5/325MG 1 TAB TABLET PO PRN (17:10)
--- NOTE | 2020-05-11 17:38 | NUR ---
Pt was escorted to personal vehicle, all belongings with patient and education. Pt IV discontinued by this RN. Tolerated well.
[2020-05-11] MEDS ORDERED: LACTOBACILLUS RHAMNOSUS GG 1 CAPSULE. PO SCH (21:00)
--- NOTE | 2020-05-12 07:43 | CARD ---
MR#: [id number] Date of Study: 05/11/2020 Ordering Physician: VIRGINIA NEFF, Referring Physician: VIRGINIA NEFF, Tech: Lisa Rangel APPROVED REPORT EXAM: Two-dimensional and M-mode echocardiogram with Doppler and color Doppler. Other Information Quality : AverageHR: 53bpm INDICATION COPD Atrial Fibrillation RISK FACTORS Hypertension Hyperlipidemia Smoking 2D DIMENSIONS Left Atrium(2D)3.8 (1.6-4.0cm)IVSd0.8 (0.7-1.1cm) Aortic Root(2D)2.9 (2.0-3.7cm)LVDd4.3 (3.9-5.9cm) LVOT Diameter1.9 (1.8-2.4cm)PWd1.0 (0.7-1.1cm) LVDs2.5 (2.5-4.0cm)FS (%) 41.3 % SV59.5 mlLVEF(%)72.5 (>50%) Aortic Valve AoV Peak Anders.121.6cm/sAoV VTI25.1cm AO Peak GR.5.9mmHgLVOT VTI 16.80cm AO Mean GR.4mmHgAI P 1/2 [id number] Mitral Valve MV E Trkgyduf20.2cm/sMV E Peak Gr.9mmHg MV DECEL [id number] A Odwvqtbn71.7cm/s MV E Mean Gr.3mmHgE/A Ratio2.1 TDI Lateral E' P. V7.79cm/sMedial E' P. V5.86cm/s E/Lateral E'11.6E/Medial E'15.4 Tricuspid Valve TR P. Iuzqwyae151ve/sRAP [id number] TR Peak Gr.01owWcVSGL71elHm LEFT VENTRICLE The left ventricle is normal size. There is normal left ventricular wall thickness. The left ventricu lar systolic function is normal. The Ejection Fraction is 55%. There is normal LV segmental wall marilu on. Tissue Doppler imaging reveals moderate left ventricular diastolic dysfunction. RIGHT VENTRICLE The right ventricle is normal size. There is normal right ventricular wall thickness. The right ventr icular systolic function is normal. ATRIA The left atrium is borderline dilated. The right atrium size is normal. The interatrial septum is int act with no evidence for an atrial septal defect or patent foramen ovale as noted on 2-D or Doppler i maging. AORTIC VALVE The aortic valve is normal in structure and function. Doppler and Color Flow revealed trace aortic re gurgitation. Calculated aortic valve area is 2.10 cm2 with maximum pressure gradient of 6 mmHg and me an pressure gradient of 4 mmHg. There is no significant aortic valvular stenosis. MITRAL VALVE The mitral valve is mildly thickened. There is no evidence of mitral valve prolapse. There is no mitr al valve stenosis and a mean gradient of 2.97 mmHg. Doppler and Color-flow revealed trace mitral regu rgitation. TRICUSPID VALVE The tricuspid valve is not well visualized. Doppler and Color Flow revealed trace tricuspid regurgita tion with an estimated PAP of 35 mmHg. There is no tricuspid valve stenosis. PULMONIC VALVE The pulmonic valve is not well visualized. Doppler and Color Flow revealed no pulmonic valvular regur gitation. GREAT VESSELS The aortic root is normal in size. The IVC is normal in size and collapses >50% with inspiration. PERICARDIAL EFFUSION There is no evidence of significant pericardial effusion. Critical Notification Critical Value: No <Conclusion> The left ventricular systolic function is normal. The Ejection Fraction is 55%. There is normal LV segmental wall motion. Trace tricuspid regurgitation with an estimated PAP of 35 mmHg. There is no evidence of significant pericardial effusion. Signed by : Bebeto Christopher, Electronically Approved : 05/12/2020 07:43:09
== END 2020-05-11 17:28 | disposition home health service (06) | DRG 309 ==
LOC: ER 09:21 → 2 SOUTH 13:21 → 6 SOUTH 05-09 11:27
PROVIDERS: ADMIT Family Medicine; ATTEND Family Medicine
DX: I48.19 Other persistent atrial fibrillation (principal); I50.32 Chronic diastolic (congestive) heart failure; N39.0 Urinary tract infection, site not specified; Z68.41 Body mass index [BMI] 40.0-44.9, adult; D75.89 Other specified diseases of blood and blood-forming organs; E03.9 Hypothyroidism, unspecified; E66.01 Morbid (severe) obesity due to excess calories; E78.00 Pure hypercholesterolemia, unspecified; E78.5 Hyperlipidemia, unspecified; I11.0 Hypertensive heart disease with heart failure; I16.0 Hypertensive urgency; I27.20 Pulmonary hypertension, unspecified; J44.9 Chronic obstructive pulmonary disease, unspecified; K21.9 Gastro-esophageal reflux disease without esophagitis; K76.89 Other specified diseases of liver; K83.8 Other specified diseases of biliary tract; M79.7 Fibromyalgia; R32 Unspecified urinary incontinence; G89.29 Other chronic pain; M19.90 Unspecified osteoarthritis, unspecified site; I08.3 Combined rheumatic disorders of mitral, aortic and tricuspid valves; G47.33 Obstructive sleep apnea (adult) (pediatric); K82.8 Other specified diseases of gallbladder; R29.6 Repeated falls; R43.2 Parageusia; F12.90 Cannabis use, unspecified, uncomplicated; F17.210 Nicotine dependence, cigarettes, uncomplicated; F32.9 Major depressive disorder, single episode, unspecified; F41.9 Anxiety disorder, unspecified; F41.8 Other specified anxiety disorders; W18.30XA Fall on same level, unspecified, initial encounter; Z20.828 Contact with and (suspected) exposure to other viral communicable diseases; Z82.49 Family history of ischemic heart disease and other diseases of the circulatory system; Z86.73 Personal history of transient ischemic attack (TIA), and cerebral infarction without residual deficits; Z91.19 Patient's noncompliance with other medical treatment and regimen; Z98.51 Tubal ligation status; Z59.9 Problem related to housing and economic circumstances, unspecified; Z91.81 History of falling; Z83.49 Family history of other endocrine, nutritional and metabolic diseases
CPT/HCPCS: 36415; 70450; 74177; 76700; 80048; 80053; 80076; 80307; 81001; 82607; 83540; 83550; 83690; 83735; 83880; 84443; 85025; 85610; 87040; 93005; 93306; 96361; 96365; 96375; 99291; C9113; J0696; J2405; J3475; J3480; J3490; J7030; Q9966; Q9967; 97116-GP; 97530-GP; G0378; U0003-CS

== ENCOUNTER → 2020-06-24 | Outpatient (CLI) | payer MEDICARE ==
[~2020-06-24] MED LIST changes: +ATOR20TA58 PO; +CIME400T PO; +CLON1TAB12 PO; +DILT120T3 PO; +GABA300C9 PO; +POTA20TA4 PO; +SERT100T8 PO; +ZOLP5TAB5 PO
== END | disposition home or self-care (01) ==
LOC: LAB 14:08
PROVIDERS: ATTEND Internal Medicine Cardiovascular Disease
DX: Z20.828 Contact with and (suspected) exposure to other viral communicable diseases (principal)
CPT/HCPCS: U0003-CS

== ENCOUNTER 2021-08-04 10:16 | Emergency (ER) | payer MEDICARE ==
[~2021-08-04] VITALS: Ht 139.7 cm; Wt 86.5 kg
[~2021-08-04 10:16] MED LIST changes: +SERT-268 PO; -SERT100T8 PO
--- NOTE | 2021-08-04 10:37 | PHYS DOC ---
Past Medical History Past Medical History: A-Fib, COPD, High Cholesterol, Hypertension Additional Past Medical Histor: CHRONIC LEG PAIN Past Surgical History: Tubal ligation Smoking Status: Unknown if ever smoked Alcohol Use: Occasionally Drug Use: Marijuana General Adult EDM: Chief Complaint: NAUSEA/VOMITING/DIARRHEA HPI: HPI: Patient is a 65 year old female who presents with nausea, vomiting, diarrhea, which began last night. The diarrhea has stopped since this morning. She denies any vomiting since early this morning. She still has some nausea. She denies abdominal pain. She denies chest pain or dyspnea. She denies dizziness. She reports that she has not urinated very much since last night. She denies melena, hematochezia, or hematemesis. She denies recent sick contacts or travel history. She denies recent antibiotic use. She denies any history of bowel obstruction. No previous similar or chronic symptoms reported. Review of Systems: Review of Systems: Constitutional: Denies fever or chills. [] HENT: Denies nasal congestion or sore throat. [] Respiratory: Denies cough or shortness of breath. [] Cardiovascular: Denies chest pain or edema. [] GI: She denies abdominal pain. She does report nausea, vomiting, diarrhea. Denies melena, hematochezia or hematemesis. : Denies urinary symptoms. Musculoskeletal: Denies back pain or joint pain. [] Integument: Denies rash. [] Neurologic: Denies headache, focal weakness or sensory changes. [] Psychiatric: Denies depression or anxiety. [] Heart Score: C/O Chest Pain: No Risk Factors: Risk Factors: DM, Current or recent (<one month) smoker, HTN, HLP, family history of CAD, obesity. Risk Scores: Score 0 - 3: 2.5% MACE over next 6 weeks - Discharge Home Score 4 - 6: 20.3% MACE over next 6 weeks - Admit for Clinical Observation Score 7 - 10: 72.7% MACE over next 6 weeks - Early Invasive Strategies Allergies: Allergies: Allergies Coded Allergies Type Severity Reaction Last Updated Verified No Known Drug Allergies 06/25/20 No Physical Exam: PE: Constitutional: Well developed, well nourished, no acute distress, non-toxic appearance. [] HENT: Normocephalic, atraumatic, oropharynx is patent and clear. Mucous membranes are slightly tacky. Eyes: Clear are clear and anicteric. Neck: Normal range of motion, no tenderness, supple, trachea midline. Cardiovascular:Heart rate regular rhythm, +2 radial and posterior tibial pulses bilaterally. Lungs & Thorax: Bilateral breath sounds clear to auscultation [] Abdomen: Abdomen is obese, soft, nondistended, no tenderness to palpation. Normal bowel sounds noted. No flank or abdominal ecchymoses. No CVA tendernes s. No pulsatile mass appreciated, no audible bruit appreciated. Skin: Warm, dry, no erythema, no rash. [] Back: No tenderness, no CVA tenderness. [] Extremities: No tenderness, no cyanosis, no clubbing, ROM intact, no edema. [] Neurologic: Alert and oriented X 3, normal motor function, speech is clear and fluent, gait is steady. Psychologic: Affect normal, judgement normal, mood normal. [] EKG: EKG: [] Radiology/Procedures: Radiology/Procedures: [] Course & Med Decision Making: Course & Med Decision Making Pertinent Labs and Imaging studies reviewed. (See chart for details) IV fluids given. IV Zofran given. She denies pain. She has benign, nonsurgical abdominal exam. She is feeling much better. No vomiting or diarrhea produced here. She is not able to provide a urine specimen for some time, but ultimately returned unremarkable. She is feeling much better, she is anxiously waiting discharge. No current indication for emergent imaging or further invasive exams. I discussed the findings, differential diagnosis and plan of care with her. I discussed home care instructions, including drinking clear fluids and eating a bland diet. I told her to follow-up with her primary care physician. She will be prescribed antiemetics to use as needed. Return precautions are given. She verbalizes understanding of instructions given. Arian Disclaimer: Arian Disclaimer: This electronic medical record was generated, in whole or in part, using a voice recognition dictation system. Departure Departure Impression: Primary Impression: Nausea vomiting and diarrhea Disposition: HOME / SELF CARE / HOMELESS Condition: STABLE Referrals: LANI HANDLEY (PCP) Patient Instructions: Diarrhea, Nausea and Vomiting, Viral Gastroenteritis Additional Instructions: Drink plenty of clear fluids. Eat a bland diet. Return to the ER immediately for vomiting blood, bloody stool, severe abdominal pain, fever 100.4 or higher, severe dizziness or weakness, if you are acutely injured or for any other concerns. Use the nausea medicine as needed. Follow-up with your primary care physician. Scripts Ondansetron Hcl (ZOFRAN) 4 Mg Tablet 4 MG PO PRN TID PRN for VOMITING, #20 TAB nausea/vomiting Prov: LYNN VERA DO 08/04/21 LYNN VERA DO Aug 04, 2021 10:37
[2021-08-04] MEDS ORDERED: ONDANSETRON PF 4 MG/2 ML VIAL. IVP ONE (11:00)
[2021-08-04] MEDS ORDERED: IV NORMAL SALINE 1000ML BAG 1,000 ML IV ONE (11:00)
[2021-08-04 11:27] LABS: BASO # 0.1 x10^3/uL (0.0-0.2); BASO % 1 % (0-3); EOS # 0.2 x10^3/uL (0.0-0.7); EOS % 2 % (0-3); HEMATOCRIT 42.7 % (36.0-47.0); HEMOGLOBIN 14.3 g/dL (12.0-15.5); LYMPH # 3.3 x10^3/uL (1.0-4.8); LYMPH % 35 % (24-48); MEAN CORPUSCULAR HEMOGLOBIN 33 pg (25-35); MEAN CORPUSCULAR HGB CONC 34 g/dL (31-37); MEAN CORPUSCULAR VOLUME 99 fL (79-100); MONO # 0.8 x10^3/uL (0.0-1.1); MONO % 9 % (0-9); NEUT # 5.1 x10^3/uL (1.8-7.7); NEUT % 54 % (31-73); PLATELET COUNT 302 x10^3/uL (140-400); RED CELL DISTRIBUTION WIDTH 13.4 % (11.5-14.5); WHITE BLOOD COUNT 9.5 x10^3/uL (4.0-11.0)
[2021-08-04 12:53] VITALS: BP 130/68
[2021-08-04 12:57] LABS: CALCIUM 8.8 mg/dL (8.5-10.1); CREATININE 0.8 mg/dL (0.6-1.0); GFR 71.5; POTASSIUM 5.1 mmol/L (3.5-5.1)
[2021-08-04 13:03] LABS: ALBUMIN 3.3 g/dL (3.4-5.0); ALBUMIN/GLOBULIN RATIO 0.9 (1.0-1.7); TOTAL BILIRUBIN 0.5 mg/dL (0.2-1.0); TOTAL PROTEIN 6.9 g/dL (6.4-8.2)
[2021-08-04 14:16] LABS: BILIRUBIN,URINE NEGATIVE (NEG); CLARITY,URINE CLEAR; COLOR,URINE YELLOW; NITRITE,URINE POSITIVE (NEG); PROTEIN,URINE NEGATIVE (NEG-TRACE); UROBILINOGEN,URINE 0.2 mg/dL (0.2 mg/dL)
[2021-08-04 14:22] LABS: BACTERIA,URINE MANY /HPF (0-FEW); HYALINE CASTS, URINE FEW /HPF
[2021-08-04 14:23] LABS: RBC,URINE 0 /HPF (0-2)
[2021-08-04] MEDS ORDERED: ONDA4TAB7 PO (14:27)
== END 2021-08-04 14:34 | disposition home or self-care (01) ==
LOC: ER 10:16
DX: R11.2 Nausea with vomiting, unspecified (principal); R19.7 Diarrhea, unspecified; I48.91 Unspecified atrial fibrillation; J44.9 Chronic obstructive pulmonary disease, unspecified; E78.00 Pure hypercholesterolemia, unspecified; I10 Essential (primary) hypertension; G89.29 Other chronic pain; Z98.51 Tubal ligation status
CPT/HCPCS: 36415; 80053; 81001; 83690; 85025; 87077; 87086; 87186; 96361; 96374; 99283; J2405; J7030

== ENCOUNTER 2022-02-27 10:22 | Emergency (ER) | payer MEDICARE ==
[~2022-02-27 10:22] MED LIST changes: +ONDA4TAB7 PO
[2022-02-27] MEDS ORDERED: BACITRACIN TOPICAL OINT PACKET. TP ONE (11:00)
[2022-02-27] MEDS ORDERED: DIPHTH,PERTUSS(ACELL),TET TOX 0.5 ML DISP.SYRIN. VAX IM ONE (11:00)
[2022-02-27 11:07] LABS: BASO # 0.1 x10^3/uL (0.0-0.2); BASO % 1 % (0-3); EOS # 0.4 x10^3/uL (0.0-0.7); EOS % 6 % (0-3); HEMATOCRIT 41.1 % (36.0-47.0); HEMOGLOBIN 13.8 g/dL (12.0-15.5); LYMPH # 2.7 x10^3/uL (1.0-4.8); LYMPH % 37 % (24-48); MEAN CORPUSCULAR HEMOGLOBIN 33 pg (25-35); MEAN CORPUSCULAR HGB CONC 34 g/dL (31-37); MEAN CORPUSCULAR VOLUME 99 fL (79-100); MONO # 0.8 x10^3/uL (0.0-1.1); MONO % 11 % (0-9); NEUT # 3.2 x10^3/uL (1.8-7.7); NEUT % 45 % (31-73); PLATELET COUNT 236 x10^3/uL (140-400); RED BLOOD COUNT 4.17 x10^6/uL (3.50-5.40); RED CELL DISTRIBUTION WIDTH 14.8 % (11.5-14.5); WHITE BLOOD COUNT 7.2 x10^3/uL (4.0-11.0)
--- NOTE | 2022-02-27 11:30 | RAD ---
CT brain without contrast, CT C-spine without contrast, CT chest without contrast, CT abdomen pelvis without contrast. HISTORY: Fall, head trauma, on Eliquis, left rib and abdominal pain CT brain CT scan the brain was done without contrast. Sinuses are clear. A skull fracture is not identified. T here is no intracranial hemorrhage or subdural hematoma. There is right encephalomalacia from an old right middle cerebral artery CVA. There is no mass effect or shift of the midline. There has been no definite change compared with a study from May 2020. There is decreased density in the white matte r from chronic microvascular changes. IMPRESSION: 1. 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 2. No intracranial hemorrhage or acute finding. End impression CT cervical spine Axial CT images were obtained through the cervical spine. Sagittal and coronal reconstructed images w ere reviewed. There is no acute CT spine fracture. There is moderate carotid artery calcification on the right with mild carotid calcification on the left. There is degenerative disc disease at multiple levels with relative spurring at C2-3 and C3-4. There is spurring with foraminal narrowing bilateral ly at several levels. There is no abnormal subluxation. There is spinal stenosis at the C5-6 and C6-7 . IMPRESSION: 1. Degenerative spondylosis in the cervical spine. 2. Foraminal narrowing at several levels. 3. Mild spinal stenosis at C5-6 and C6-7. End impression CT CHEST: CT scan of the chest was done without contrast. Thyroid is homogeneous. There is no mediastinal adeno jordyn. There is no pleural effusion. There is extensive coronary artery calcification. There are calc ified granulomas. There is linear scarring or atelectasis without other infiltrates. There is no pneu mothorax or pleural effusion. There are old lateral and posterior right rib fractures. There is sligh t deformity of anterior left RIBS which could be old fractures or nondisplaced acute fractures of the left anterior fifth and sixth ribs. IMPRESSION: 1. Old right rib fractures. 2. Linear scarring or atelectasis without other infiltrates. 3. No pneumothorax or pleural effusion. 4. Slight deformity anterior fifth and sixth ribs on the left which could be old trauma or nondisplac ed acute fracture. End impression CT abdomen pelvis CT abdomen pelvis was done without contrast. There is a cyst in the left liver. There is a calcificat ion at the anterior right liver. No other liver lesion is noted. There is no calcified gallstone or g allbladder wall thickening. Spleen is unremarkable. Adrenal glands are normal. There is no mass or hy dronephrosis in the kidneys. There is no definite pancreatic lesion. There is no renal calculus or hy dronephrosis. There is atherosclerotic change in the aorta without an aneurysm. There is no bowel obs truction. There is no free air. Appendix is normal. Uterus and ovaries are unremarkable. There is no free fluid in pelvis. There is degenerative change in lumbar spine. There is no acute lumbar fracture . There is no acute pelvic fracture. There is soft tissue swelling at the right flank from the lower ribs to just above the iliac crest. There is no free fluid in the abdomen or pelvis. IMPRESSION: 1. No acute intra-abdominal injury. 2. No abnormal fluid or free air in the abdomen. 3. Soft tissue swelling right flank from the lower ribs to the top of the iliac crest the subcutaneou s tissues from injury. PQRS Compliance Statement: One or more of the following individualized dose reduction techniques were utilized for this examinat ion: 1. Automated exposure control 2. Adjustment of the mA and/or kV according to patient size 3. Use of iterative reconstruction technique Electronically signed by: Francois Christopher MD (02/27/2022 11:28 AM) [id number]
--- NOTE | 2022-02-27 11:55 | RAD ---
Bilateral shoulders 3 views each, HISTORY: Fall, bilateral shoulder pain Right shoulder 3 views were taken of the right shoulder. There are multiple old right rib fractures with healing occ luding the right third through eighth posterior ribs. There are also anterior lateral rib fractures o n the right. There is a displaced fracture of the right fifth rib which could be nonhealed old fractu re or an acute fracture. Other anterior rib fractures appear old and healed. There is no fracture or dislocation at the right shoulder. Left shoulder 3 views were taken of the left shoulder. There is an old healed proximal humerus fracture. There is s purring on the femoral head. There is mild soft tissue swelling. IMPRESSION: 1. Old healed proximal left humerus fracture. 2. Arthritis left humerus. 3. No acute left shoulder fracture. 4. No acute fracture or dislocation right shoulder. 5. Multiple old right rib fractures with healing. 6. Right fifth rib fracture an old fracture without healing or possibly an acute fracture. Electronically signed by: Francois Christopher MD (02/27/2022 11:53 AM) [id number]
[2022-02-27 12:00] LABS: PROTHROMBIN TIME PATIENT 14.3 SEC (11.7-14.0)
[2022-02-27] MEDS ORDERED: MORPHINE SULFATE 4 MG/ML INJ. IVP ONE (12:00)
[2022-02-27] MEDS ORDERED: ONDANSETRON PF 4 MG/2 ML VIAL. IVP ONE (12:00)
[2022-02-27 15:08] LABS: BACTERIA,URINE MANY /HPF (0-FEW)
[2022-02-27 15:09] LABS: RBC,URINE OCC /HPF (0-2)
[2022-02-27] MEDS ORDERED: CEFDINIR 300 MG CAPSULE PO ONE (15:15)
--- NOTE | 2022-02-27 15:20 | PHYS DOC ---
Past Medical History Past Medical History: A-Fib, COPD, High Cholesterol, Hypertension Additional Past Medical Histor: CHRONIC LEG PAIN Past Surgical History: Tubal ligation Smoking Status: Unknown if ever smoked Alcohol Use: Occasionally Drug Use: Marijuana General Adult EDM: Chief Complaint: TRAUMA ACTIVATION HPI: HPI: Patient is a 66-year-old female who presents to the emergency department complaining of slipping and falling to the carpeted floor while getting out of b ed 3 days ago. Patient reports bilateral shoulder pain, right earlobe pain, right flank pain. Patient states she has been taking her gabapentin and [id number] Tylenol for pain at home with some relief. Patient reports a current 6 out of 10 pain. Patient reports she was not intending on coming to the hospital for evaluation but her sister came to visit and he made her come to the ER by ambulance. Patient does report a history of chronic atrial fibrillation, patient does deny chest pain, chest or nasal congestion, denies abdominal pain, denies increased urinary frequency, urinary pressure, denies hematuria or other dysuria. Patient denies syncopal or near syncopal episodes, denies visual disturbances, denies dizziness. Patient states that she is very short and she has to slide off the end of the bed to reach the floor, patient reports that when she did this this time she stumbled and fell to the ground striking her head. Patient does deny a loss of consciousness. Patient denies other physical complaints or physical concerns. Patient states her last tetanus immunization was greater than 5 years ago. Review of Systems: Review of Systems: 14 body systems of review of systems have been reviewed. See HPI for pertinent positives and negative responses, otherwise all other systems are negative, nonpertinent or noncontributory. Constitutional: Negative except as outlined in HPI above. Skin: Negative except as outlined in HPI above. Eyes: Negative except as outlined in HPI above. HENT: Negative except as outlined in HPI above. Respiratory: Negative except as outlined in HPI above. Cardiovascular: Negative except as outlined in HPI above. GI: Negative except as outlined in HPI above. : Negative except as outlined in HPI above. Musculoskeletal: Negative except as outlined in HPI above. Integument: Negative except as outlined in HPI above. Neurologic: Negative except as outlined in HPI above. Endocrine: Negative except as outlined in HPI above. Lymphatic: Negative except as outlined in HPI above. Psychiatric: Negative except as outlined in HPI above. Heart Score: C/O Chest Pain: No Risk Factors: Risk Factors: DM, Current or recent (<one month) smoker, HTN, HLP, family history of CAD, obesity. Risk Scores: Score 0 - 3: 2.5% MACE over next 6 weeks - Discharge Home Score 4 - 6: 20.3% MACE over next 6 weeks - Admit for Clinical Observation Score 7 - 10: 72.7% MACE over next 6 weeks - Early Invasive Strategies Current Medications: Current Medications Medications (Trade) Dose Ordered Sig/Steffen Start Time Stop Time Status Last Admin Dose Admin Bacitracin (Bacitracin Zinc Oint Pkt) 1 pkt 1X ONCE 02/27/22 11:00 02/27/22 11:01 DC 02/27/22 12:03 1 PKT Cefdinir (Omnicef) 300 mg 1X ONCE 02/27/22 15:15 02/27/22 15:16 DC Diphtheria/ Tetanus/Acell Pertussis (Boostrix) 0.5 ml ONCE ONCE 02/27/22 11:00 02/27/22 11:01 DC 02/27/22 12:04 0.5 ML Morphine Sulfate (Morphine Sulfate) 4 mg 1X ONCE 02/27/22 12:00 02/27/22 12:01 DC 02/27/22 12:03 4 MG Ondansetron HCl (Zofran) 4 mg 1X ONCE 02/27/22 12:00 02/27/22 12:01 DC 02/27/22 12:03 4 MG Allergies: Allergies: Allergies Coded Allergies Type Severity Reaction Last Updated Verified No Known Drug Allergies 06/25/20 No Physical Exam: PE: Constitutional: Well developed, well nourished, no acute distress, non-toxic appearance. 66-year-old female in no apparent distress. HENT: Normocephalic, atraumatic. There is no raccoon eyes, no battles sign, bilateral TMs intact and within normal limits, there is an abrasion with dried blood of the right earlobe, no infectious process appreciated, no drooling, no trismus, there is no malocclusion, patient is speaking in normal sentences. Eyes: Conjunctiva normal, no discharge. Satisfactory 6 cardinal eye movements. Neck: Normal range of motion, no stridor. There is no C-spine pain or pain to the muscular structures of the neck. Cardiovascular: No cyanosis appreciated, distal cap refill less than 2 seconds. Lungs & Thorax: Patient is in no respiratory distress, no audible adventitious lung sounds appreciated. Lung sounds are clear to auscultation all lung rosado, normal work of breathing. No subcu air, equal rise and fall of chest, no crepitus appreciated per palpation of the anterior thorax. Abdomen: Nontender, no abnormalities noted. There is pain to palpation along the muscular structures of the right flank. Skin: Warm, dry, no erythema, no rash. Back: No tenderness, no deformities. Extremities: No tenderness, no cyanosis, no clubbing, ROM intact, no edema. There is contusions to bilateral anterior shoulders with dark purple bruising. Distal cap refill is less than 2 seconds all 4 extremities, +2/4 pulses. Neurologic: Alert and oriented X 3, normal motor function, normal sensory function, no focal deficits noted. Psychologic: Affect normal, judgement normal, mood normal. Current Patient Data: Labs: Laboratory Tests Test 02/27/22 10:38 02/27/22 14:55 White Blood Count 7.2 x10^3/uL (4.0-11.0) Red Blood Count 4.17 x10^6/uL (3.50-5.40) Hemoglobin 13.8 g/dL (12.0-15.5) Hematocrit 41.1 % (36.0-47.0) Mean Corpuscular Volume 99 fL (79-100) Mean Corpuscular Hemoglobin 33 pg (25-35) Mean Corpuscular Hemoglobin Concent 34 g/dL (31-37) Red Cell Distribution Width 14.8 % (11.5-14.5) H Platelet Count 236 x10^3/uL (140-400) Neutrophils (%) (Auto) 45 % (31-73) Lymphocytes (%) (Auto) 37 % (24-48) Monocytes (%) (Auto) 11 % (0-9) H Eosinophils (%) (Auto) 6 % (0-3) H Basophils (%) (Auto) 1 % (0-3) Neutrophils # (Auto) 3.2 x10^3/uL (1.8-7.7) Lymphocytes # (Auto) 2.7 x10^3/uL (1.0-4.8) Monocytes # (Auto) 0.8 x10^3/uL (0.0-1.1) Eosinophils # (Auto) 0.4 x10^3/uL (0.0-0.7) Basophils # (Auto) 0.1 x10^3/uL (0.0-0.2) Prothrombin Time 14.3 SEC (11.7-14.0) H Prothrombin Time INR 1.1 (0.8-1.1) Troponin I High Sensitivity 10 ng/L (4-50) IE-Nxw-K-Type Natriuretic Peptide 1025 pg/mL (0-124) H Urine Collection Type Unknown Urine Color (Auto) Yellow Urine Turbidity Hazy Urine pH (Auto) 6.0 (<5.0-8.0) Urine Specific [place] 1.020 (1.000-1.030) Urine Protein (Auto) Negative mg/dL (Negative) Urine Glucose (Auto)(UA) Negative mg/dL (Negative) Urine Ketones (Auto) Negative mg/dL (Negative) Urine Blood (Auto) Negative (Negative) Urine Nitrite Positive (Negative) Urine Bilirubin (Auto) Negative (Negative) Urine Urobilinogen (Auto) 2 mg/dL (Normal) Urine Leukocyte Esterase (Auto) Moderate (Negative) Urine RBC Occ /HPF (0-2) Urine WBC 5-10 /HPF (0-4) Urine Squamous Epithelial Cells Mod /LPF Urine Bacteria Many /HPF (0-FEW) Urine Mucus Slight /LPF Laboratory Tests 02/27/22 10:38 Vital Signs: Vital Signs Date Time Temp Pulse Resp B/P (MAP) Pulse Ox O2 Delivery O2 Flow Rate FiO2 02/27/22 12:03 18 EKG: EKG: EKG performed at 1035 by ED nursing staff shows an atrial fibrillation with a controlled rate at 91 bpm, QTc interval 0.457, no other ectopy is noted, no acute ischemia, no ACS, no STEMI appreciated, EKG interpreted by ED attending physician Dr. Sue. Radiology/Procedures: Radiology/Procedures: REASON: Fall, bilateral shoulder pain, RIGHT > LEFT PROCEDURE: SHOULDER BILAT 2+V Bilateral shoulders 3 views each, HISTORY: Fall, bilateral shoulder pain Right shoulder 3 views were taken of the right shoulder. There are multiple old right rib fractures with healing occluding the right third through eighth posterior ribs. There are also anterior lateral rib fractures on the right. There is a displaced fracture of the right fifth rib which could be nonhealed old fracture or an acute fracture. Other anterior rib fractures appear old and healed. There is no fracture or dislocation at the right shoulder. Left shoulder 3 views were taken of the left shoulder. There is an old healed proximal humerus fracture. There is spurring on the femoral head. There is mild soft tissue swelling. IMPRESSION: 1. Old healed proximal left humerus fracture. 2. Arthritis left humerus. 3. No acute left shoulder fracture. 4. No acute fracture or dislocation right shoulder. 5. Multiple old right rib fractures with healing. 6. Right fifth rib fracture an old fracture without healing or possibly an acute fracture. Electronically signed by: Francois Christopher MD (02/27/2022 11:53 AM) [id number] REASON: Fall, struck head, on Eliquis PROCEDURE: CT HEAD AND CERVICAL SPINE WO CT brain without contrast, CT C-spine without contrast, CT chest without contrast, CT abdomen pelvis without contrast. HISTORY: Fall, head trauma, on Eliquis, left rib and abdominal pain CT brain CT scan the brain was done without contrast. Sinuses are clear. A skull fracture is not identified. There is no intracranial hemorrhage or subdural hematoma. There is right encephalomalacia from an old right middle cerebral artery CVA. There is no mass effect or shift of the midline. There has been no definite change compared with a study from May 2020. There is decreased density in the white matter from chronic microvascular changes. IMPRESSION: 1. 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 2. No intracranial hemorrhage or acute finding. End impression CT cervical spine Axial CT images were obtained through the cervical spine. Sagittal and coronal reconstructed images were reviewed. There is no acute CT spine fracture. There is moderate carotid artery calcification on the right with mild carotid calcification on the left. There is degenerative disc disease at multiple levels with relative spurring at C2-3 and C3-4. There is spurring with foraminal narrowing bilaterally at several levels. There is no abnormal subluxation. There is spinal stenosis at the C5-6 and C6-7. IMPRESSION: 1. Degenerative spondylosis in the cervical spine. 2. Foraminal narrowing at several levels. 3. Mild spinal stenosis at C5-6 and C6-7. End impression CT CHEST: CT scan of the chest was done without contrast. Thyroid is homogeneous. There is no mediastinal adenopathy. There is no pleural effusion. There is extensive coronary artery calcification. There are calcified granulomas. There is linear scarring or atelectasis without other infiltrates. There is no pneumothorax or pleural effusion. There are old lateral and posterior right rib fractures. There is slight deformity of anterior left RIBS which could be old fractures or nondisplaced acute fractures of the left anterior fifth and sixth ribs. IMPRESSION: 1. Old right rib fractures. 2. Linear scarring or atelectasis without other infiltrates. 3. No pneumothorax or pleural effusion. 4. Slight deformity anterior fifth and sixth ribs on the left which could be old trauma or nondisplaced acute fracture. End impression CT abdomen pelvis CT abdomen pelvis was done without contrast. There is a cyst in the left liver. There is a calcification at the anterior right liver. No other liver lesion is noted. There is no calcified gallstone or gallbladder wall thickening. Spleen is unremarkable. Adrenal glands are normal. There is no mass or hydronephrosis in the kidneys. There is no definite pancreatic lesion. There is no renal calculus or hydronephrosis. There is atherosclerotic change in the aorta without an aneurysm. There is no bowel obstruction. There is no free air. Appendix is normal. Uterus and ovaries are unremarkable. There is no free fluid in pelvis. There is degenerative change in lumbar spine. There is no acute lumbar fracture. There is no acute pelvic fracture. There is soft tissue swelling at the right flank from the lower ribs to just above the iliac crest. There is no free fluid in the abdomen or pelvis. IMPRESSION: 1. No acute intra-abdominal injury. 2. No abnormal fluid or free air in the abdomen. 3. Soft tissue swelling right flank from the lower ribs to the top of the iliac crest the subcutaneous tissues from injury. PQRS Compliance Statement: One or more of the following individualized dose reduction techniques were utilized for this examination: 1. Automated exposure control 2. Adjustment of the mA and/or kV according to patient size 3. Use of iterative reconstruction technique Electronically signed by: Francois Christopher MD (02/27/2022 11:28 AM) [id number] Course & Med Decision Making: Course & Med Decision Making Pertinent Labs and Imaging studies reviewed. (See chart for details) 66-year-old female, vital signs reviewed, presents to the emergency department concerning a slip and fall at home 3 days ago. Physical examination is consistent with patient's explanation of events, ED nursing staff activated a trauma alert, trauma physician Dr. Encinas called back for consult, discussed with Dr. Encinas patient case in which it was determined he was not immediately needed for interventions, will call Dr. Encinas if warranted. Will order twelve- lead EKG, CT head and C-spine, CT chest abdomen pelvis without contrast, bilateral shoulder x-rays, saline lock, cardiac monitoring, CBC, CMP, lipase, magnesium, NT proBNP, high-sensitivity troponin I, urinalysis assay, will bring tetanus immunization up-to-date with Tdap, cleanse and dress abrasions, PT/INR. The patient's labs are nonconcerning, CT and x-ray imaging are nonconcerning for acute process, there was findings of old rib fractures, upon reevaluation of the patient, patient reports she has fallen in the past and is aware of rib fractures of both the right and the left side, patient's urine is infected, discussed with patient will start on cefdinir regimen, patient is amenable to antibiotic. Discussed with patient strict follow-up with primary care, patient reports a 2 out of 10 pain after pain medication given in the emergency department. Discussed with patient return to ER precautions and concerns, discussed home safety to prevent further falls at home such as having a stepstool near the bed so she does not need to slide off the bed to meet the floor, patient gave verbal understanding of and is amenable to ED discharge planning. Discussed with the patient all findings and diagnostic testing as well as the need to follow-up with their primary care provider for further evaluation and treatment or return to the ED if any new or worsening symptoms. Strict return precautions were also discussed at length, the patient voiced understanding and agreement with the discharge planning. The patient was nontoxic in appearance, in no apparent distress, and hemodynamically stable at the time of disposition. Arian Disclaimer: Arian Disclaimer: This electronic medical record was generated, in whole or in part, using a voice recognition dictation system. Departure Departure Impression: Primary Impression: Fall Qualified Codes: W19.XXXA - Unspecified fall, initial encounter Additional Impressions: Contusion of shoulder, left Qualified Codes: S40.012A - Contusion of left shoulder, initial encounter Contusion of shoulder, right Qualified Codes: S40.011A - Contusion of right shoulder, initial encounter Contusion of flank Qualified Codes: S30.1XXA - Contusion of abdominal wall, initial encounter Abrasion Need for Tdap vaccination Urinary tract infection Qualified Codes: N39.0 - Urinary tract infection, site not specified; R31.9 - Hematuria, unspecified Disposition: 01 HOME / SELF CARE / HOMELESS Condition: GOOD Referrals: YANDEL VALLES JR, MD (PCP) Patient Instructions: Abrasions, Contusion, Fall Prevention and Home Safety, Urinary Tract Infection Additional Instructions: You were seen today in the emergency department after a slip and fall at home 3 days ago. You were given pain medication for your aches and pains today in the emergency department. A urinalysis assay was obtained and found that you have a urinary tract infection, your first antibiotic dose was started today called cefdinir, you will take this twice a day for the next 7 days, please take as directed until complete. I am prescribing you pain medications for home, please do not drive or operate heavy machinery or perform dangerous activities while taking a narcotic pain medication, please use ice packs to your sore areas 30 minutes on 30 minutes off for the next 48 to 72 hours. Please follow-up with your primary care doctor Jen for ongoing evaluation of your aches and pains from your fall. You did suffer an abrasion to your right earlobe, this was cleansed and antibiotic ointment was applied, please continue to perform wound care to this abrasion until healed. Your tetanus immunization was brought up-to-date today in the emergency department, please update your immunization records accordingly. Thank you for visiting our Emergency Department. It was a pleasure taking care of you today in the emergency department and we appreciate you trusting us with your care. If any additional problems come up don't hesitate to return to visit us. Please follow up with your primary care provider so they can plan additional care if needed and know about the problem that you had. If symptoms worsen come back to the Emergency Department. Any concerning symptoms that start such as chest pain, shortness of air, weakness or numbness on one side of the body, running high fevers or any other concerning symptoms return to the ER. Scripts Hydrocodone Bit/Acetaminophen (HYDROCODONE-APAP 10-325 ) 1 Tab Tablet 1 TAB PO PRN Q6HRS PRN for PAIN, #12 TAB 0 Refills Prov: KIMBERLY MELISSA FLY RAISER LOCKSTITCH 02/27/22 Cefdinir (CEFDINIR) 300 Mg Capsule 1 CAP PO BID for UTI, #14 CAP 0 Refills Prov: KIMBERLY MELISSA FLY RAISER LOCKSTITCH 02/27/22 KIMBERLY MELISSA APRN February 27, 2022 15:20
[2022-02-27 15:30] LABS: CALCIUM 9.1 mg/dL (8.5-10.1); CREATININE 0.9 mg/dL (0.6-1.0); GFR 62.3
[2022-02-27 15:36] LABS: ALBUMIN/GLOBULIN RATIO 0.8 (1.0-1.7); TOTAL BILIRUBIN 0.6 mg/dL (0.2-1.0); TOTAL PROTEIN 6.7 g/dL (6.4-8.2)
[2022-02-27] MEDS ORDERED: HYDR-2769 PO (16:10)
[2022-02-27] MEDS ORDERED: CEFD300C PO (16:10)
--- NOTE | 2022-03-02 08:34 | EKG ---
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
== END 2022-02-27 16:13 | disposition home or self-care (01) ==
LOC: ER 10:22
DX: S40.011A Contusion of right shoulder, initial encounter (principal); S40.012A Contusion of left shoulder, initial encounter; S30.1XXA Contusion of abdominal wall, initial encounter; N39.0 Urinary tract infection, site not specified; R31.9 Hematuria, unspecified; R51.9 Headache, unspecified; I48.91 Unspecified atrial fibrillation; J44.9 Chronic obstructive pulmonary disease, unspecified; E78.00 Pure hypercholesterolemia, unspecified; I10 Essential (primary) hypertension; G89.29 Other chronic pain; Z98.51 Tubal ligation status; W06.XXXA Fall from bed, initial encounter; Y93.89 Activity, other specified; Y92.89 Other specified places as the place of occurrence of the external cause; Y99.8 Other external cause status
CPT/HCPCS: 36415; 70450; 71250; 72125; 73030; 74176; 80053; 81001; 83690; 83735; 83880; 84484; 85025; 85610; 87077; 87086; 87186; 90471; 90715; 93005; 96374; 96375; 99285; J2270; J2405